=== PATIENT | male | born 1955 | race Caucasian/White ===

== ENCOUNTER 2017-01-01 14:39 | Emergency (ER) | payer OTHER ==
[~2017-01-01] VITALS: Ht 167.6 cm; Wt 84.1 kg
[~2017-01-01 14:39] MED LIST: ALLO100T57 PO; FNTTP25 EXT; INDO-22 PO; LISI-794 PO; TIZA4CAP PO
[2017-01-01 14:53] VITALS: TEMP 36.8; Ht 167.6 cm; Wt 84.1 kg
[2017-01-01] MEDS ORDERED: OXYC1TAB3 PO (15:23)
--- NOTE | 2017-01-01 15:25 | EMERGENCY ROOM VISIT NOTE ---
ED Visit Note First contact with patient: 15:00 CHIEF COMPLAINT: Low back pain HISTORY OF PRESENT ILLNESS: This 61-year-old male patient presents to the emergency department ambulatory complaining of pain in the low back which has been chronic since the late . The patient states that he was seeing [facility] pain management until May when he states he went to the office at [place] and formerly [facility] [place] and they let him go from the practice. He states that since then he has had elbow and shoulder surgery and has seen [facility]. He states he has been getting narcotics from [facility]. He states that today he was due to have a nerve block done on L5 but he had taken Indocin a few days ago because of worsening pain and they stated he could not get the block done. It will be rescheduled. The patient presents to the emergency department solely for pain management. He denies any change in his symptoms, new falls or injuries. He denies any loss of bowel or bladder control. He reports numbness in both of his legs but states that has been ongoing for the last 3 years. REVIEW OF SYSTEMS: No dysuria or increased urinary frequency. A 6 system review of systems was completed and pertinent positives and negatives are in the HPI. ALLERGIES: Aspirin, methadone MEDICATIONS: See nursing notes PMH: Hypertension, gout, chronic back pain SOCIAL HISTORY: The patient lives locally. He does not smoke PHYSICAL EXAM: VITALS: Vitals are noted on the nurse's note and reviewed by myself. No abnormalities noted. GENERAL: This is a 61-year-old male, in no acute distress, nondiaphoretic, well- developed well-nourished. SKIN: The skin was without rashes, erythema, edema, or bruising. Capillary refill less than 2 seconds. NECK: Supple without nuchal rigidity. No cervical spine tenderness. No paraspinous muscle tenderness. HEART: Regular rate and rhythm without murmurs gallops or rubs. LUNGS: Clear to auscultation bilaterally without wheezes, rales or rhonchi. ABDOMEN: Positive bowel sounds x 4. Normal tympanic percussion. Soft, nontender, without masses or organomegaly. Valdovinos sign negative. MUSCULOSKELETAL: No muscle atrophy, erythema, or edema noted of the back. There is no tenderness over the lumbar spinous processes. There is no tenderness over the paraspinous muscles. There is no tenderness over the thoracic spine or paraspinous muscles. There are no obvious muscle spasms present. The patient is slow to move around with maximum tenderness with extension. Negative straight leg raise test. NEURO: Patient was alert and oriented to person place and time. Normal sensation to light and sharp touch. Deep tendon reflexes 2+ in the lower extremities. Dorsalis pedis pulse 2+ bilaterally. Strength is 5/5 in the lower extremities bilaterally. EMERGENCY DEPARTMENT COURSE: The patient was seen and examined. The patient does not frequent the emergency department. I did review the prescription drug monitoring website. The patient has been filling tramadol which he admits to receiving. He states that he had been on oxycodone which had been helping him. He states he was let go from [facility] pain management. The patient does not have any new or change in symptoms. He does not have any neurologic deficit on exam or by history. After discussion with Dr. Cyr we decided to give the patient a 3 day prescription. I advised the patient that I will give him a 3 day supply of pain medication but he must follow-up with orthopedics and/or pain management for further evaluation, management and pain medication. I was able to speak with Asael Tovar who stated that the patient does not receive narcotics from [facility] anymore. I feel this patient does display drug-seeking behavior. He was given a one- time prescription for his chronic back pain. Problem List Medical Problems: (1) CAD (coronary artery disease) Status: Chronic (2) Hypertension Status: Chronic Current/Historical Medications Scheduled Fentanyl (Fentanyl), 1 DOSE EXT Q3DAYS Lisinopril (Zestril), 40 MG PO QAM Scheduled PRN Allopurinol (Zyloprim), 0.5 TAB PO DAILY PRN for GOUT Indomethacin (Indocin), 25 MG PO BID PRN for Pain Oxycodone Ir (Roxicodone Ir), 1-2 TAB PO Q6H PRN for Pain Tizanidine (Zanaflex), 2 TAB PO HS PRN for Pain Allergies Coded Allergies: Aspirin (Verified Adverse Reaction, Severe, GI SYMPTOMS, 01/01/17) BLOOD IN STOOL (REGULAR STRENGTH ASPIRIN) Methadone (Verified Adverse Reaction, Severe, VOMITING, 01/01/17) Vital Signs Date Time Temp Pulse Resp B/P Pulse Ox O2 Delivery O2 Flow Rate FiO2 01/01/17 15:48 100 18 170/129 95 01/01/17 14:53 36.8 91 18 190/110 96 Room Air Departure Information Impression Primary Impression: Chronic back pain Dispostion Home / Self-Care Condition GOOD Prescriptions Oxycodone Ir (Roxicodone Ir) 5 Mg Tab 1-2 TAB PO Q6H Y for Pain, #24 TAB For Initial Treatment Prov: Jennifer Gtz PA-C 01/01/17 Referrals No Doctor, Assigned (PCP) Emigdio Pierre M.D. Patient Instructions My [facility] Additional Instructions Oxy IR 1-2 tablets every 4-6 hrs as needed for worse pain. No driving or alcohol use with Oxy IR. You have been given a three-day supply of oxycodone from the emergency department. Emergency department does not manage chronic pain and you must follow-up with orthopedics or pain management for additional medication.
[2017-01-01 15:48] VITALS: BP 170/129; PULSE 100; O2SAT 95
[2017-01-14] MEDS ORDERED: TRAM-453 PO (08:36)
[2017-04-15] MEDS ORDERED: AMLO-114 PO (11:07)
[2017-05-08] MEDS ORDERED: LISI40TA PO (11:09)
[2017-05-08] MEDS ORDERED: CLON0.1D5 TD (11:09)
== END 2017-01-01 15:49 | disposition home or self-care (01) ==
LOC: C.EDB 14:42 → C.EDD 15:49
DX: M54.5 Low back pain (principal); G89.29 Other chronic pain; I10 Essential (primary) hypertension; I25.10 Atherosclerotic heart disease of native coronary artery without angina pectoris; M10.9 Gout, unspecified; Z79.899 Other long term (current) drug therapy; Z88.5 Allergy status to narcotic agent; Z88.6 Allergy status to analgesic agent

== ENCOUNTER → 2017-01-15 | Day surgery (SDC) | payer OTHER ==
[2016-12-09 08:37] VITALS: BMI 29.0
[2016-12-22 08:34] VITALS: BMI 29.0
[2017-01-14 08:37] VITALS: Ht 167.6 cm; Wt 84.1 kg
[~2017-01-15] VITALS: Ht 167.6 cm; Wt 84.1 kg
[~2017-01-15] MED LIST changes: +AMLO-114 PO; +APR25 PO; +CHECK CLONIDINE; +CLON0.1D5 TD; +CPR500 PO; +CRDCD240 PO; -FNTTP25 EXT; +LIDOCAINE HCL 1% MPF 5 ML VIAL INJ ONE; +LISI40TA PO; +METHYLPREDNISOLONE 40 MG INJ ONE; +METR500T PO; +NAPR500T3 PO; +NRV5 PO; +OXYC1TAB3 PO; +SENN-65 PO; +SODIUM CHLORIDE 0.9% INJ 10 ML VIAL INJ ONE; +TPRSR50 PO; +TRAM-453 PO; +[UNRECOGNIZED DRUG - OTHER] INJ ONE
--- NOTE | 2017-01-15 14:23 | History & Physical Bridge - SC ---
H&P Re-Evaluation Bridge Note: I have examined the patient, reviewed the History & Physical and in the interval since the performance of the History & Physical I have noted the following changes of clinical significance: No changes noted
--- NOTE | 2017-01-15 14:48 | Discharge Instructions ---
Discharge Instructions Visit Reason for Visit: Lumbar Radiculopathy Discharge Discharge Diagnosis / Problem: leg pain Discharge Goals Goal(s): Decrease discomfort, Improve function Activity Recommendations Activity Limitations: resume your previous activity Anesthesia . Post Anesthesia Instructions: If you have had General Anesthesia or IV Sedation: * Do not drive today. * Resume driving when surgeon permits. * Do not make important decisions or sign legal documents today. * Call surgeon for: 1. Temperature elevations greater than 101 degrees F. 2. Uncontrollable pain. 3. Excessive bleeding. 4. Persistent nausea and vomiting. 5. Medication intolerance (nausea, vomiting or rash). * For nausea and vomiting use only clear liquids such as: tea, soda, bouillon until nausea subsides, then gradually increase diet as tolerated. * If you have any concerns or questions, call your surgeon's office. If physician is unavailable and it is an emergency, call 911 or go to the nearest emergency room. . Diet Recommendations Recommended Home Diet: resume previous diet Procedures Procedures Performed: Lumbar Epidural Steroid Injection Pending Studies Studies pending at discharge: no Medical Emergencies . Who to Call and When: Medical Emergencies: If at any time you feel your situation is an emergency, please call 911 immediately. . Non-Emergent Contact Non-Emergency issues call your: Specialist . . "Provider Documentation" section prepared by Emigdio Pierre.
[2017-01-15 14:52] VITALS: TEMP 36.9
[2017-01-15 14:57] VITALS: BP 190/97; PULSE 78; O2SAT 99
--- NOTE | 2017-01-15 15:09 | OPERATIVE REPORT ---
DATE OF OPERATION: 01/15/2017 PREOPERATIVE DIAGNOSIS: Lumbar spinal stenosis secondary to epidural lipomatosis with bilateral lower extremity radiculopathies. POSTOPERATIVE DIAGNOSES: Same. PROCEDURE: Right L5-S1 paramedian interlaminar epidural steroid injection under fluoroscopic guidance. INDICATIONS: The patient is a 61-year-old white male who has difficulty ambulating. He has lumbar stenosis problems related to lumbar lipomatosis and he has not responded to conservative measures. He presents today for an epidural injection to provide him with relief of his radicular pain. PHYSICAL EXAMINATION: Pleasant male seated comfortably. He has mild tenderness to palpation of the lumbar paraspinal muscles. He has normal lower extremity strength and decreased sensation distally in a stocking distribution. CONSENT: Verbal and written consent was obtained from the patient. Risks and benefits were reviewed. Risks include but are not limited to epidural hematoma, epidural abscess, and allergic reaction. The patient wishes to proceed. DESCRIPTION OF PROCEDURE: The patient was taken back to the special procedures room of the [facility] where he was maintained in a prone position. Backside was cleansed with Betadine x3 and a dry sterile dressing was applied. Fluoroscope was used to identify the L5-S1 interlaminar space and the overlying skin was anesthetized with 4 mL of lidocaine 1% with a 25 gauge 1.5-inch needle. A 22-gauge 3-1/2 inch Tuohy needle was then directed into the interlaminar space. It was advanced under lateral fluoroscopic guidance. Loss of resistance was noted at a depth of 6.5 cm. Isovue-300 contrast 1 mL was injected in which demonstrated epidural uptake pattern which was confirmed with both AP and lateral views. He then underwent injection after negative aspiration of 40 mg Depo-Medrol and 4 mL of preservative-free sodium chloride. Injection was well tolerated. DISPOSITION: 1. The patient is taken out into the discharge recovery area where he will be discharged home once discharge criteria have been met. 2. Follow up in the [facility] office in 2-4 weeks. I attest to the content of the Intraoperative Record and any orders documented therein. Any exceptio ns are noted below.
== END | disposition home or self-care (01) ==
LOC: X.SURG 11:37
PROVIDERS: ATTEND Physical Medicine & Rehabilitation
DX: M48.06 Spinal stenosis, lumbar region (principal); M54.16 Radiculopathy, lumbar region; D17.79 Benign lipomatous neoplasm of other sites

== ENCOUNTER → 2017-02-02 | Outpatient (CLI) | payer OTHER ==
[~2017-02-02] MED LIST changes: -LIDOCAINE HCL 1% MPF 5 ML VIAL INJ ONE; -METHYLPREDNISOLONE 40 MG INJ ONE; -SODIUM CHLORIDE 0.9% INJ 10 ML VIAL INJ ONE; -[UNRECOGNIZED DRUG - OTHER] INJ ONE
== END | disposition home or self-care (01) ==
LOC: C.RDSM 13:00
PROVIDERS: ATTEND Physical Medicine & Rehabilitation Sports Medicine
DX: M75.41 Impingement syndrome of right shoulder (principal); M25.571 Pain in right ankle and joints of right foot

== ENCOUNTER 2017-02-24 19:31 | Inpatient (IN) | payer OTHER ==
[~2017-02-24] VITALS: Ht 167.6 cm; Wt 85.3 kg
[~2017-02-24 19:31] MED LIST changes: -AMLO-114 PO; -APR25 PO; -CHECK CLONIDINE; -CLON0.1D5 TD; -CPR500 PO; -CRDCD240 PO; -LISI40TA PO; -METR500T PO; -NAPR500T3 PO; -NRV5 PO; -OXYC1TAB3 PO; -SENN-65 PO; -TPRSR50 PO
[2017-02-24] MEDS ORDERED: NAPR500T3 PO (19:55)
[2017-02-24] MEDS ORDERED: SODIUM CHLORIDE 0.9% 1000ML 1,000 ML IV STA (20:58)
[2017-02-24] MEDS ORDERED: SODIUM CHLORIDE 0.9% 250ML 250 ML IV STA (20:58)
--- NOTE | 2017-02-24 21:08 | EMERGENCY ROOM VISIT NOTE ---
History Report prepared by Kendrick: Lorna Coleman Under the Supervision of: Dr. Razia Romeo M.D. First contact with patient: 19:45 Chief Complaint: GI ASSESSMENT Stated Complaint: SERIOUSLY BLOCKED COLON,3 DAYS NO BM,NO FOOD,PAIN History of Present Illness The patient is a 61 year old male who presents to the Emergency Room for a GI assessment. Three days ago the patient walked his dog over to his neighbor's house. They were drinking beer and he estimates that he ate about 85 saltine crackers that evening. The next morning he woke up with severe lower abdominal pain. He has not been eating much and he has been constipated. His last bowel movement was 2 days ago. The patient rates his current pain as a 10/10 in severity. He has taken 34 Ex-lax tablets and 17 doses of MiraLAX without any relief. He also gave himself a homemade enema of contact lens fluid, which he states helped slightly. He denies any personal history of a bowel obstruction. He has been taking naproxen and Percocet for pain. The patient also reports fevers. Source of History: patient Onset: 3 days ago Position: abdomen Symptom Intensity: 10/10 Timing: worsening Modifying Factors (Relieving): narcotics, other (enema) Associated Symptoms: + fevers Note: Pt notes constipation. Review of Systems See HPI for pertinent positives & negatives. A total of 10 systems reviewed and were otherwise negative. Past Medical & Surgical Medical Problems: (1) Acute kidney injury (2) CAD (coronary artery disease) (3) Colonic inertia (4) Hypertension (5) Hyponatremia Family History Patient reports no known family medical history. Social History Smoking Status: Never Smoker Alcohol Use: occasionally Marital Status: single Current/Historical Medications Scheduled Lisinopril (Zestril), 40 MG PO QAM Naproxen (Naproxen), 500 MG PO DIRECTED Scheduled PRN Allopurinol (Zyloprim), 0.5 TAB PO DAILY PRN for GOUT Indomethacin (Indocin), 25 MG PO BID PRN for Pain Tizanidine (Zanaflex), 2 TAB PO HS PRN for Pain Tramadol Hcl (Ultram), 100 TABS PO TID PRN for Pain Allergies Coded Allergies: Aspirin (Verified Adverse Reaction, Severe, GI SYMPTOMS, 02/24/17) BLOOD IN STOOL (REGULAR STRENGTH ASPIRIN) Methadone (Verified Adverse Reaction, Severe, VOMITING, 02/24/17) Physical Exam Vital Signs Date Time Temp Pulse Resp B/P Pulse Ox O2 Delivery O2 Flow Rate FiO2 02/24/17 23:47 101 18 169/85 95 Room Air 02/24/17 21:28 99 20 152/82 94 Room Air 02/24/17 21:23 100 02/24/17 19:35 37.7 103 20 113/65 94 Room Air Physical Exam Vital signs reviewed. General: Well-appearing 61 year old male, in no significant distress. HEENT: No scleral icterus, PERRLA, neck supple. Atraumatic. Cardiovascular: Regular rate and rhythm, no extra sounds. Pulmonary: Clear to auscultation bilaterally, normal work of breathing. Abdomen: Soft, distended, positive tympani, positive bowel sounds. Musculoskeletal: Atraumatic, no peripheral edema. Neurologic: Patient awake alert and oriented x 3, full strength in all 4 extremities. Cranial nerves 2 through 12 grossly intact. Skin: Warm, dry, no rash Medical Decision & Procedures ER Provider Diagnostic Interpretation: Radiology results as stated below per my review and radiologist interpretation: ABDOMEN 2VIEW W/PA CHEST RTN CLINICAL HISTORY: SBO pain COMPARISON STUDY: 02/06/2016 FINDINGS: Mild bibasilar atelectasis. Lungs otherwise are clear. Diaphragms smooth. Several air-filled slightly distended loops of small bowel in the left central abdomen. Possibility of a partial distal small bowel obstruction is considered. No secondary signs of free air. IMPRESSION: 1. Mild bibasilar atelectasis. 2. Probable developing distal small bowel partial obstructive change Electronically signed by: Devante Chavez M.D. 02/24/2017 10:10 PM Dictated Date/Time: 02/24/2017 10:08 PM ABDOMEN AND PELVIS CT WITHOUT CONTRAST CT DOSE: 522.65 mGy.cm HISTORY: Pain SBO TECHNIQUE: Multiaxial CT images of the abdomen and pelvis were performed without contrast. COMPARISON STUDY: None. FINDINGS: Small parenchymal infiltrate right base. Trace pleural fluid right posterior costophrenic angle. Left base shows minimal dependent atelectatic change. Kidneys are negative for calcification or hydronephrosis. Liver demonstrates mild fatty infiltration. Gallbladder is negative for distention. Pancreas is uniform. Small bowel is negative for significant dilatation. Distal small bowel is slightly distended. Cecum , ascending, as well as components of the transverse colon are moderately distended. A true obstructing lesion is not seen. Distal colon as well as sigmoid show no evidence for distention. No significant free fluid within the pelvic cul-de-sac. Bladder is midline. There are no contained calcifications. IMPRESSION: Moderate distention of the proximal cecum to mid transverse colon. This may simply represent a nonobstructive colonic ileus, although colonoscopy is suggested to exclude an occult partially obstructing lesion. The bowel pattern as well as all remaining components of the study are otherwise unremarkable. note is made of a parenchymal infiltrate combined with a small effusion right lung base. Electronically signed by: Devante Chavez M.D. 02/24/2017 10:40 PM Dictated Date/Time: 02/24/2017 10:34 PM Laboratory Results Test 02/24/17 21:20 02/24/17 21:38 02/24/17 21:45 Dohle Bodies 1+ Prothrombin Time 9.9 SECONDS (9.0-12.0) Prothromb Time International Ratio 0.9 (0.9-1.1) Activated Partial Thromboplast Time 29.2 SECONDS (21.0-31.0) Partial Thromboplastin Ratio 1.1 Osmolality 270 mOsm/kg (280-300) Total Bilirubin 0.7 mg/dl (0.2-1) Direct Bilirubin 0.1 mg/dl (0-0.2) Aspartate Amino Transf (AST/SGOT) 37 U/L (15-37) Alanine Aminotransferase (ALT/SGPT) 40 U/L (12-78) Alkaline Phosphatase 149 U/L (45-117) Total Protein 7.5 gm/dl (6.4-8.2) Albumin 3.6 gm/dl (3.4-5.0) Lipase 63 U/L (73-393) Ethyl Alcohol mg/dL < 3.0 mg/dl (0-3) Urine Color YELLOW Urine Appearance CLOUDY (CLEAR) Urine pH 5.0 (4.5-7.5) Urine Specific [place] 1.008 (1.000-1.030) Urine Protein 1+ (NEG) Urine Glucose (UA) NEG (NEG) Urine Ketones NEG (NEG) Urine Occult Blood 2+ (NEG) Urine Nitrite NEG (NEG) Urine Bilirubin NEG (NEG) Urine Urobilinogen NEG (NEG) Urine Leukocyte Esterase NEG (NEG) Urine RBC 0-4 /hpf (0-4) Urine WBC 1-5 /hpf (0-5) Urine Epithelial Cells 0-5 /lpf (0-5) Urine Bacteria 2+ (NEG) Urine Hyaline Casts 1-5 /lpf (0-5) Urine Granular Casts 5-10 /lpf (0) Urine Opiates Screen NEG (NEG) Urine Methadone, Qualitative NEG (NEG) Urine Barbiturates NEG (NEG) Urine Phencyclidine (PCP) Level NEG (NEG) Ur Amphetamine/Methamphetamine NEG (NEG) MDMA (Ecstasy) Screen NEG (NEG) Urine Benzodiazepines Screen NEG (NEG) Urine Cocaine Metabolite NEG (NEG) Urine Marijuana (THC) NEG (NEG) Date/Time Source Procedure Growth Status 02/24/17 21:45 Urine , Clean Catch Urine Culture - Final NO GROWTH - LESS THAN 1,000 COLONIES/ML Complete Laboratory results per my review. Medications Administered Medications (Trade) Dose Ordered Sig/Romana Route Start Time Stop Time Status Last Admin Dose Admin Morphine Sulfate (MoRPHine SULFATE INJ) 4 mg NOW STAT IV 02/24/17 23:37 02/24/17 23:40 DC 02/25/17 01:36 4 MG Ceftriaxone Sodium (Rocephin Inj) 1 gm NOW STAT IV 02/24/17 23:37 02/24/17 23:40 DC 02/25/17 00:47 1 GM ED Course 1951: Past medical records reviewed. The patient was evaluated in room B11B. A complete history and physical examination was performed. 2057: NSS 1000 ml @ 125 mls/hr IV, NSS 250 ml @ 999 mls/hr IV 2310: I reassessed the patient at this time. He is feeling better and resting comfortably. I discussed the results and treatment plan with the patient. I answered all pertaining questions that he had. He expressed understanding and verbalized agreement. 2335: I spoke with Dr. Lynch. We discussed the patient's results and treatment plan. The patient will be evaluated by the [facility] for further management. 2337: Rocephin 1 gm IV, Morphine sulfate 4 mg IV Medical Decision Differential diagnoses includes SBO, appendicitis, intraabdominal abscess, diverticulitis, constipation, perforated viscus. This patient was evaluated and appeared to be in no significant distress. IV access was obtained and laboratory work was drawn. The patient's abdominal exam is impressive for a tympany and generalized tenderness. He was hydrated with normal saline solution. Patient was given IV morphine and Zofran after he made repeated requests. The patient's history is concerning for the excessive laxatives that he's been taking lately. Abdominal x-ray series reveals air- fluid levels. The patient is not vomiting. CT scan of the abdomen and pelvis was performed colonic distention without clear evidence of obstruction. Patient 's laboratory work reveals a creatinine of 3.3. It is unclear if this is brand- new however the patient's creatinine was 1.3, 1 year ago. The patient was informed of the findings. He was feeling somewhat improved after the above interventions. He did request on multiple occasions additional narcotics. I feel that the narcotics and NSAIDs or likely contribute to the patient's ileus and renal failure. The case has been discussed with Dr. Graf of the hospitalist service and he will evaluate the patient for further management. Consults Time Called: 2327 Consulting Physician: Dr. Lynch Returned Call: [phone] Lynch. We discussed the patient's results and treatment plan. The patient will be evaluated by the [facility] for further management. Impression Primary Impression: Acute renal failure Additional Impressions: Pneumonia Pleural effusion Adynamic ileus Scribe Attestation The scribe's documentation has been prepared under my direction and personally reviewed by me in its entirety. I confirm that the note above accurately reflects all work, treatment, procedures, and medical decision making performed by me. Departure Information Dispostion Being Evaluated By Hospitalist Referrals No Doctor, Assigned (PCP) Patient Instructions My [facility] Problem Qualifiers Primary Impression: Acute renal failure Acute renal failure type: unspecified Qualified Codes: N17.9 - Acute kidney failure, unspecified Additional Impressions: Pneumonia Pneumonia type: due to unspecified organism Laterality: right Lung location : lower lobe of lung Qualified Codes: J18.1 - Lobar pneumonia, unspecified organism
[2017-02-24 21:34] LABS: HEMATOCRIT 33.4 % (42-52); MEAN CELL VOLUME 83.7 fL (80-100); MEAN CORPUSCULAR HEMOGLOBIN 31.1 pg (25-34); MEAN CORPUSCULAR HGB CONC 37.1 g/dl (32-36); MEAN PLATELET VOLUME 10.1 fL (7.4-10.4); PLATELET COUNT 164 K/uL (130-400); RED BLOOD COUNT 3.99 M/uL (4.7-6.1); WHITE BLOOD COUNT 7.67 K/uL (4.8-10.8)
[2017-02-24 21:44] LABS: INR 0.9 (0.9-1.1); PARTIAL THROMBOPLASTIN RATIO 1.1; PROTHROMBIN TIME (PATIENT) 9.9 SECONDS (9.0-12.0)
[2017-02-24] MEDS ORDERED: OPTIRAY 320 IV PRN (21:45)
[2017-02-24 21:56] LABS: BASO % 0.1 %; BASO ABS # 0.01 K/uL (0-0.2); COMPLETE YES; DOHLE BODIES 1+; EOS % 0.4 %; IG% 0.4 %; LYMPH % 8.1 %; LYMPH ABS # 0.62 K/uL (1.2-3.4); MONO % 4.3 %; NEUT % 86.7 %
[2017-02-24 21:57] LABS: CALCIUM 9.1 mg/dl (8.5-10.1); CREATININE 3.3 mg/dl (0.60-1.40); MAGNESIUM 2.5 mg/dl (1.8-2.4); POTASSIUM 3.4 mmol/L (3.5-5.1)
[2017-02-24 22:05] LABS: URINE APPEARANCE CLOUDY (CLEAR); URINE BILIRUBIN NEG (NEG); URINE COLOR YELLOW; URINE NITRITE NEG (NEG); URINE SPECIFIC GRAVITY 1.008 (1.000-1.030); UROBILINOGEN NEG (NEG)
[2017-02-24 22:06] LABS: MANUAL MICROSCOPIC REQUIRED? YES; REVIEW REQ? NO
--- NOTE | 2017-02-24 22:11 | DIAGNOSTIC IMAGING REPORT ---
ABDOMEN 2VIEW W/PA CHEST RTN CLINICAL HISTORY: SBO pain COMPARISON STUDY: 02/06/2016 FINDINGS: Mild bibasilar atelectasis. Lungs otherwise are clear. Diaphragms smooth. Several air-filled slightly distended loops of small bowel in the left central abdomen. Possibility of a partial distal small bowel obstruction is considered. No secondary signs of free air. IMPRESSION: 1. Mild bibasilar atelectasis. 2. Probable developing distal small bowel partial obstructive change Electronically signed by: Devante Chavez M.D. 02/24/2017 10:10 PM Dictated Date/Time: 02/24/2017 10:08 PM
[2017-02-24 22:17] LABS: URINE BACTERIA 2+ (NEG); URINE RBC 0-4 /hpf (0-4)
[2017-02-24 22:18] LABS: ZZUR CULT IF INDIC CLEAN CATCH YES
[2017-02-24 22:27] LABS: BENZODIAZEPINE, URINE NEG (NEG); COCAINE,URINE NEG (NEG); PHENCYCLIDINE, URINE NEG (NEG)
--- NOTE | 2017-02-24 22:41 | DIAGNOSTIC IMAGING REPORT ---
ABDOMEN AND PELVIS CT WITHOUT CONTRAST CT DOSE: 522.65 mGy.cm HISTORY: Pain SBO TECHNIQUE: Multiaxial CT images of the abdomen and pelvis were performed without contrast. COMPARISON STUDY: None. FINDINGS: Small parenchymal infiltrate right base. Trace pleural fluid right posterior costophrenic angle. Left base shows minimal dependent atelectatic change. Kidneys are negative for calcification or hydronephrosis. Liver demonstrates mild fatty infiltration. Gallbladder is negative for distention. Pancreas is uniform. Small bowel is negative for significant dilatation. Distal small bowel is slightly distended. Cecum , ascending, as well as components of the transverse colon are moderately distended. A true obstructing lesion is not seen. Distal colon as well as sigmoid show no evidence for distention. No significant free fluid within the pelvic cul-de-sac. Bladder is midline. There are no contained calcifications. IMPRESSION: Moderate distention of the proximal cecum to mid transverse colon. This may simply represent a nonobstructive colonic ileus, although colonoscopy is suggested to exclude an occult partially obstructing lesion. The bowel pattern as well as all remaining components of the study are otherwise unremarkable. note is made of a parenchymal infiltrate combined with a small effusion right lung base. Electronically signed by: Devante Chavez M.D. 02/24/2017 10:40 PM Dictated Date/Time: 02/24/2017 10:34 PM
[2017-02-24] MEDS: MoRPHine SULFATE 4 MG/ML 1 ML CARP\\VIAL IV STA (23:37)
[2017-02-24] MEDS ORDERED: CEFTRIAXONE SOD INJ 1 GM ADDVIAL IV STA (23:37)
[2017-02-25] VITALS (10 sets, daily range): BP systolic 163–211; BP diastolic 84–119; PULSE 90–120; TEMP 36.6–36.9; O2SAT 93–97; Ht 167.6 cm; Wt 85.3 kg
[2017-02-25] MEDS ORDERED: BISACODYL 10 MG SUPP PR STA (00:42)
[2017-02-25] MEDS ORDERED: ONDANSETRON INJ 2 MG/ML 2 ML VIAL IV PRN (00:45)
[2017-02-25] MEDS ORDERED: ACETAMINOPHEN 325 MG TAB PO PRN (00:45)
[2017-02-25] MEDS ORDERED: ZOLPIDEM TARTRATE 5 MG TAB PO PRN (00:45)
[2017-02-25] MEDS ORDERED: TRAMADOL HCL 50 MG TAB PO PRN (00:45)
[2017-02-25] MEDS ORDERED: MoRPHine SULFATE 4 MG/ML 1 ML CARP\\VIAL IV PRN (00:45)
[2017-02-25] MEDS ORDERED: SOD PHOSPHATE/SOD BIPHOSPHATE ENEMA 132 ML BTL PR PRN (00:45)
[2017-02-25] MEDS ORDERED: DiphenhydrAMINE HCL 50 MG/ML VIAL IV PRN (00:45)
[2017-02-25] MEDS ORDERED: MoRPHine SULFATE 2 MG/ML CARP IV PRN (00:45)
[2017-02-25] MEDS ORDERED: LEVALBUTEROL 1.25MG/0.5ML NEB INH PRN (01:15)
[2017-02-25] MEDS ORDERED: IPRATROPIUM BROMIDE NEB SOLN 0.02% 2.5 ML VIAL INH PRN (01:15)
[2017-02-25] MEDS: MoRPHine SULFATE 4 MG/ML 1 ML CARP\\VIAL IV STA (01:36)
[2017-02-25] MEDS: SODIUM CHLORIDE 0.9% 1000ML 1,000 ML IV SCH ×2 (02:00→11:17)
[2017-02-25] MEDS: LEVALBUTEROL 1.25MG/0.5ML NEB INH SCH ×4 (02:36→20:53)
[2017-02-25] MEDS: IPRATROPIUM BROMIDE NEB SOLN 0.02% 2.5 ML VIAL INH SCH ×4 (02:36→20:53)
[2017-02-25] MEDS ORDERED: LEVALBUTEROL/IPRATROPIUM NEB INH SCH (03:00)
[2017-02-25] MEDS: OXYCODONE HCL IR 5 MG TAB (IMMEDIATE RELEASE) PO PRN ×4 (03:10→20:23)
--- NOTE | 2017-02-25 05:22 | History and Physical ---
History & Physical Date & Time of Service: Feb 25, 2017 at 05:07. The patient was examined on 02/24/2017. Chief Complaint: Acute Renal Failure, Colonic Inertia Primary Care Physician: No Doctor, Assigned History of Present Illness Source: patient The patient is a 61-year-old male who presents to the emergency department with complaint of severe lower abdominal/suprapubic pain that he reports began in the morning after eating 85 saltine crackers and drank beer the previous evening 3 days ago. His last bowel movement was 2 days ago. He reports having taken 34 Ex-Lax tablets 17 doses of MiraLAX without any relief. He was also taking significant amounts of naproxen and ibuprofen, and also took left over Percocet from a previous shoulder injury with the pain. He also gave himself a homemade enema of contact lens fluid. He also reports that he had a fever, but did not take his temperature. Past Medical/Surgical History Medical Problems: (1) CAD (coronary artery disease) Status: Chronic (2) Hypertension Status: Chronic Family History Patient reports no known family medical history. Social History Smoking Status: Never Smoker Smokeless Tobacco Use: No Alcohol Use: socially Drug Use: none Marital Status: single Multi-Drug Resistant Organisms History of MDRO: No Allergies Coded Allergies: Aspirin (Verified Adverse Reaction, Severe, GI SYMPTOMS, 02/24/17) BLOOD IN STOOL (REGULAR STRENGTH ASPIRIN) Methadone (Verified Adverse Reaction, Severe, VOMITING, 02/24/17) Home Medications Scheduled Lisinopril (Zestril), 40 MG PO QAM Naproxen (Naproxen), 500 MG PO DIRECTED Scheduled PRN Allopurinol (Zyloprim), 0.5 TAB PO DAILY PRN for GOUT Indomethacin (Indocin), 25 MG PO BID PRN for Pain Tizanidine (Zanaflex), 2 TAB PO HS PRN for Pain Tramadol Hcl (Ultram), 100 TABS PO TID PRN for Pain Review of Systems The patient denies chest pain, palpitations, shortness of breath, cough, lower extremity swelling, vision change, hearing change, sore throat, chills, sweats , weight change, blood in urine or stool, dysuria, urinary frequency or urgency , lightheadedness, dizziness, headache, memory loss, rash, abnormal bruising or bleeding, imbalance, focal or generalized weakness, numbness or tingling in arms or legs, night sweats, or allergy symptoms. The review of systems is otherwise negative other than for that already noted above, and at least 10 systems have been reviewed. Physical Exam Vital Signs Date Time Temp Pulse Resp B/P Pulse Ox O2 Delivery O2 Flow Rate FiO2 02/25/17 04:00 Room Air 02/25/17 03:36 36.7 107 19 179/95 97 Room Air 02/25/17 02:00 36.7 100 18 178/84 94 Room Air 02/25/17 01:30 103 18 156/88 95 02/24/17 23:47 101 18 169/85 95 Room Air 02/24/17 21:28 99 20 152/82 94 Room Air 02/24/17 21:23 100 02/24/17 19:35 37.7 103 20 113/65 94 Room Air The patient is awake, well-developed and adequately nourished, alert and oriented 3, normocephalic and atraumatic, lying in bed and in no acute distress. HEENT--PERRL, EOMI, mucous membranes and oropharynx dry. Neck--supple, no JVD or bruits, thyroid normal, trachea midline, no adenopathy. Heart--normal S1 and S2, no extra beats, no murmurs, rubs or gallops. Lungs--clear bilaterally, no respiratory distress, no accessory muscle use. Abdomen--normal bowel sounds and soft, tender right lateral abdomen, nondistended, and obese. Extremities--no cyanosis, clubbing or edema. There are good distal pulses b/l. Dermatologic--normal skin turgor, normal color, warm and dry, no abnormal lymph nodes, no rash. Neurologic--cranial nerves II through XII grossly intact, motor and sensory examination normal. Rheumatologic--normal range of motion, nontender, muscles and joints. Psychiatric--normal affect. Diagnostics Laboratory Results Results Past 24 Hours Test 02/24/17 21:20 02/24/17 21:38 02/24/17 21:45 Range/Units White Blood Count 7.67 4.8-10.8 K/uL Red Blood Count 3.99 4.7-6.1 M/uL Hemoglobin 12.4 14.0-18.0 g/dL Hematocrit 33.4 42-52 % Mean Corpuscular Volume 83.7 80-100 fL Mean Corpuscular Hemoglobin 31.1 25-34 pg Mean Corpuscular Hemoglobin Concent 37.1 32-36 g/dl Platelet Count 164 130-400 K/uL Mean Platelet Volume 10.1 7.4-10.4 fL Neutrophils (%) (Auto) 86.7 % Lymphocytes (%) (Auto) 8.1 % Monocytes (%) (Auto) 4.3 % Eosinophils (%) (Auto) 0.4 % Basophils (%) (Auto) 0.1 % Neutrophils # (Auto) 6.65 1.4-6.5 K/uL Lymphocytes # (Auto) 0.62 1.2-3.4 K/uL Monocytes # (Auto) 0.33 0.11-0.59 K/uL Eosinophils # (Auto) 0.03 0-0.5 K/uL Basophils # (Auto) 0.01 0-0.2 K/uL RDW Standard Deviation 40.1 36.4-46.3 fL RDW Coefficient of Variation 13.2 11.5-14.5 % Immature Granulocyte % (Auto) 0.4 % Immature Granulocyte # (Auto) 0.03 0.00-0.02 K/uL Dohle Bodies 1+ Prothrombin Time 9.9 9.0-12.0 SECONDS Prothromb Time International Ratio 0.9 0.9-1.1 Activated Partial Thromboplast Time 29.2 21.0-31.0 SECONDS Partial Thromboplastin Ratio 1.1 Sodium Level 126 136-145 mmol/L Potassium Level 3.4 3.5-5.1 mmol/L Chloride Level 89 98-107 mmol/L Carbon Dioxide Level 24 21-32 mmol/L Anion Gap 13.0 3-11 mmol/L Blood Urea Nitrogen 30 7-18 mg/dl Creatinine 3.30 0.60-1.40 mg/dl Est Creatinine Clear Calc Drug Dose 23.9 ml/min Estimated GFR () 22.1 Estimated GFR (Non- 19.1 BUN/Creatinine Ratio 9.0 10-20 Random Glucose 124 70-99 mg/dl Osmolality 270 280-300 mOsm/kg Calcium Level 9.1 8.5-10.1 mg/dl Magnesium Level 2.5 1.8-2.4 mg/dl Total Bilirubin 0.7 0.2-1 mg/dl Direct Bilirubin 0.1 0-0.2 mg/dl Aspartate Amino Transf (AST/SGOT) 37 15-37 U/L Alanine Aminotransferase (ALT/SGPT) 40 12-78 U/L Alkaline Phosphatase 149 45-117 U/L Total Protein 7.5 6.4-8.2 gm/dl Albumin 3.6 3.4-5.0 gm/dl Lipase 63 73-393 U/L Ethyl Alcohol mg/dL < 3.0 0-3 mg/dl Urine Color YELLOW Urine Appearance CLOUDY CLEAR Urine pH 5.0 4.5-7.5 Urine Specific [place] 1.008 1.000-1.030 Urine Protein 1+ NEG Urine Glucose (UA) NEG NEG Urine Ketones NEG NEG Urine Occult Blood 2+ NEG Urine Nitrite NEG NEG Urine Bilirubin NEG NEG Urine Urobilinogen NEG NEG Urine Leukocyte Esterase NEG NEG Urine RBC 0-4 0-4 /hpf Urine WBC 1-5 0-5 /hpf Urine Epithelial Cells 0-5 0-5 /lpf Urine Bacteria 2+ NEG Urine Hyaline Casts 1-5 0-5 /lpf Urine Granular Casts 5-10 0 /lpf Urine Opiates Screen NEG NEG Urine Methadone, Qualitative NEG NEG Urine Barbiturates NEG NEG Urine Phencyclidine (PCP) Level NEG NEG Ur Amphetamine/Methamphetamine NEG NEG MDMA (Ecstasy) Screen NEG NEG Urine Benzodiazepines Screen NEG NEG Urine Cocaine Metabolite NEG NEG Urine Marijuana (THC) NEG NEG Microbiology Results 02/25/17 Blood Culture, Received Pending 02/25/17 Blood Culture, Received Pending 02/24/17 Urine Culture, Received Pending Diagnostic Radiology Patient Name: OK MOHAN III Unit Number: [id number] Dictated: 02/24/172207 Transcribed: 02/24/172207 MS Printed Date/Time: [~ rep prt dt]/[~ rep prt tm] [~ rep ct labl] - [~ rep ct ivnm] [facility] [place] [address] Dictated: 02/24/172207 Transcribed: 02/24/172207 MS Printed Date/Time: [~ rep prt dt]/[~ rep prt tm] [~ rep ct labl] - [~ rep ct ivnm] ABDOMEN 2VIEW W/PA CHEST RTN CLINICAL HISTORY: SBO pain COMPARISON STUDY: 02/06/2016 FINDINGS: Mild bibasilar atelectasis. Lungs otherwise are clear. Diaphragms smooth. Several air-filled slightly distended loops of small bowel in the left central abdomen. Possibility of a partial distal small bowel obstruction is considered. No secondary signs of free air. IMPRESSION: 1. Mild bibasilar atelectasis. 2. Probable developing distal small bowel partial obstructive change Electronically signed by: Devante Chavez M.D. 02/24/2017 10:10 PM Dictated Date/Time: 02/24/2017 10:08 PM The status of this report is Signed. Draft = Not yet reviewed or approved by Radiologist. Signed = Reviewed and approved by Radiologist. <AttendingPhy></AttendingPhy> <FamilyPhy>No Doctor, Assigned</FamilyPhy> < PrimaryPhy>No Doctor, Assigned</PrimaryPhy> <UnitNumber>[id number]</UnitNumber> <VisitNumber>[id number]</VisitNumber> <PatientName>OK MOHAN III</ PatientName> <DateOfBirth>1955</DateOfBirth> <Location>[facility]</Location> < ServiceDate>02/24/17</ServiceDate> <MNE>ESINDI</MNE> <OrderingPhy>Razia Romeo M.D.</OrderingPhy> <OrderingPhyMNE>f rep ord dr chavez</OrderingPhyMNE> < DictatingPhyMNE>f rep dict dr chavez</DictatingPhyMNE> <CCListMNE>f rep ct jacquee</ CCListMNE> <AdmittingPhyMNE>f pt admit dr chavez</AdmittingPhyMNE> <AttendingPhyMNE >f pt attend dr chavez</AttendingPhyMNE> <ConsultingPhyMNE>f pt consult dr chavez</ConsultingPhyMNE> <FamilyPhyMNE>f pt fam dr chavez</FamilyPhyMNE> <OtherPhyMNE>f pt other dr chavez</OtherPhyMNE> < PrimaryPhyMNE>f pt prim care dr chavez</PrimaryPhyMNE> <ReferringPhyMNE>f pt referring dr chavez</ReferringPhyMNE> Patient Name: OK MOHAN III Unit Number: [id number] Dictated: 02/24/172233 Transcribed: 02/24/172233 MS Printed Date/Time: [~ rep prt dt]/[~ rep prt tm] [~ rep ct labl] - [~ rep ct ivnm] [facility] [place] [address] Dictated: 02/24/172233 Transcribed: 02/24/172233 MS Printed Date/Time: [~ rep prt dt]/[~ rep prt tm] [~ rep ct labl] - [~ rep ct ivnm] [~ rep ct add3]] ABDOMEN AND PELVIS CT WITHOUT CONTRAST CT DOSE: 522.65 mGy.cm HISTORY: Pain SBO TECHNIQUE: Multiaxial CT images of the abdomen and pelvis were performed without contrast. COMPARISON STUDY: None. FINDINGS: Small parenchymal infiltrate right base. Trace pleural fluid right posterior costophrenic angle. Left base shows minimal dependent atelectatic change. Kidneys are negative for calcification or hydronephrosis. Liver demonstrates mild fatty infiltration. Gallbladder is negative for distention. Pancreas is uniform. Small bowel is negative for significant dilatation. Distal small bowel is slightly distended. Cecum , ascending, as well as components of the transverse colon are moderately distended. A true obstructing lesion is not seen. Distal colon as well as sigmoid show no evidence for distention. No significant free fluid within the pelvic cul-de-sac. Bladder is midline. There are no contained calcifications. IMPRESSION: Moderate distention of the proximal cecum to mid transverse colon. This may simply represent a nonobstructive colonic ileus, although colonoscopy is suggested to exclude an occult partially obstructing lesion. The bowel pattern as well as all remaining components of the study are otherwise unremarkable. note is made of a parenchymal infiltrate combined with a small effusion right lung base. Electronically signed by: Devante Chavez M.D. 02/24/2017 10:40 PM Dictated Date/Time: 02/24/2017 10:34 PM The status of this report is Signed. Draft = Not yet reviewed or approved by Radiologist. Signed = Reviewed and approved by Radiologist. <AttendingPhy></AttendingPhy> <FamilyPhy>No Doctor, Assigned</FamilyPhy> < PrimaryPhy>No Doctor, Assigned</PrimaryPhy> <UnitNumber>[id number]</UnitNumber> <VisitNumber>[id number]</VisitNumber> <PatientName>OK MOHAN III</ PatientName> <DateOfBirth>1955</DateOfBirth> <Location>[facility]</Location> < ServiceDate>02/24/17</ServiceDate> <MNE>ESINDI</MNE> <OrderingPhy>Razia Romeo M.D.</OrderingPhy> <OrderingPhyMNE>f rep ord dr chavez</OrderingPhyMNE> < DictatingPhyMNE>f rep dict dr chavez</DictatingPhyMNE> <CCListMNE>f rep ct scott</ CCListMNE> <AdmittingPhyMNE>f pt admit dr chavez</AdmittingPhyMNE> <AttendingPhyMNE >f pt attend dr chavez</AttendingPhyMNE> <ConsultingPhyMNE>f pt consult dr chavez</ConsultingPhyMNE> <FamilyPhyMNE>f pt fam dr chavez</FamilyPhyMNE> <OtherPhyMNE>f pt other dr chavez</OtherPhyMNE> < PrimaryPhyMNE>f pt prim care dr chavez</PrimaryPhyMNE> <ReferringPhyMNE>f pt referring dr chavez</ReferringPhyMNE> Impression Assessment and Plan Right lower lobe pneumonia and effusion--the patient will be admitted to telemetry for oxygen monitoring. We'll place on ceftriaxone 1 g IV daily, azithromycin 500 mg IV daily, and Xopenex with Atrovent nebulizer every 6 hours while awake and every 2 hours when necessary. Nonobstructive colonic ileus--he'll be placed on a full liquid diet. We'll start Dulcolax suppository tonight and daily when necessary. Fleets enema daily when necessary, and hydrate with IV fluids. Likely secondary to medications he used, including Percocet and a leftover fentanyl patch. Acute renal insufficiency--creatinine upon admission labs is 3.3, with baseline of 1.3. Hydrate as noted above, repeat BMP and magnesium levels. Hypoosmolar hyponatremia--likely secondary to combination of Ex-Lax tablets and MiraLAX that he used. Follow serial laboratories. Level of Care Med/Surg Advanced Directives Existing Advance Directive: No Existing Living Will: No Existing Power of Anchorman: No Resuscitation Status FULL RESUSCITATION VTE Prophylaxis VTE Risk Assessment Done? Y/N: Yes Risk Level: Low Given or contraindicated: SCD's Social Service Consult None Apply
[2017-02-25] MEDS: BISACODYL 10 MG SUPP PR PRN (05:58)
[2017-02-25] MEDS ORDERED: AZITHROMYCIN IV 500 MG in DEXTROSE 5% 250ML 250 ML IV SCH (06:00)
[2017-02-25] MEDS ORDERED: INDOMETHACIN 25 MG CAP PO PRN (11:00)
[2017-02-25] MEDS ORDERED: ALLOPURINOL 100 MG TAB PO PRN (11:00)
[2017-02-25] MEDS ORDERED: NURSING VERBAL MED ORDER ONE ×4 (11:15→17:45)
[2017-02-25] MEDS ORDERED: HydrALAZINE HCL 20 MG/ML VIAL IV. PRN (11:15)
[2017-02-25] MEDS: PANTOprazole INJ 40 MG in SYRINGE 0 ML IV SCH (11:17)
[2017-02-25] MEDS ORDERED: HydrALAZINE HCL 20 MG/ML VIAL ONE (11:21)
[2017-02-25] MEDS ORDERED: HydrALAZINE HCL 20 MG/ML VIAL IV. ONE (11:30)
[2017-02-25] MEDS ORDERED: LISINOPRIL 40 MG TAB PO ONE (11:45)
[2017-02-25 12:43] LABS: BASO % 0.2 %; BASO ABS # 0.01 K/uL (0-0.2); COMPLETE YES; EOS % 0.3 %; HEMATOCRIT 38.8 % (42-52); IG% 0.3 %; LYMPH % 13.2 %; LYMPH ABS # 0.77 K/uL (1.2-3.4); MEAN CELL VOLUME 85.3 fL (80-100); MEAN CORPUSCULAR HEMOGLOBIN 31.4 pg (25-34); MEAN CORPUSCULAR HGB CONC 36.9 g/dl (32-36); MEAN PLATELET VOLUME 10.1 fL (7.4-10.4); MONO % 6.5 %; NEUT % 79.5 %; PLATELET COUNT 220 K/uL (130-400); RED BLOOD COUNT 4.55 M/uL (4.7-6.1); WHITE BLOOD COUNT 5.85 K/uL (4.8-10.8)
[2017-02-25 13:14] LABS: BUN/CREATININE RATIO 9.8 (10-20); CALCIUM 9.4 mg/dl (8.5-10.1); CREATININE 3.6 mg/dl (0.60-1.40); POTASSIUM 3.4 mmol/L (3.5-5.1)
[2017-02-25] MEDS ORDERED: CLONIDINE HCL 0.2 MG/24 HR TRANSDERM SYS TD SCH (14:00)
[2017-02-25] MEDS: CHECK CLONIDINE PATCH PLACEMENT SCH ×2 (15:38→23:48)
[2017-02-25] MEDS ORDERED: METOPROLOL TARTRATE 1 MG/ML VIAL ONE ×2 (16:42→17:36)
[2017-02-25] MEDS ORDERED: METOPROLOL TARTRATE 1 MG/ML VIAL IV ONE (18:00)
[2017-02-25] MEDS ORDERED: AMLODIPINE BESYLATE 5 MG TAB PO ONE (20:45)
[2017-02-26] VITALS (7 sets, daily range): BP systolic 189–198; BP diastolic 81–111; PULSE 94–110; TEMP 36.7–37; O2SAT 93–96
[2017-02-26] MEDS ORDERED: CEFTRIAXONE SOD INJ 1 GM in DEXTROSE 5% ADD-VANTAGE 50ML 50 ML IV SCH (01:00)
[2017-02-26] MEDS: IPRATROPIUM BROMIDE NEB SOLN 0.02% 2.5 ML VIAL INH SCH ×4 (03:00→19:10)
[2017-02-26] MEDS: LEVALBUTEROL 1.25MG/0.5ML NEB INH SCH ×4 (03:00→19:10)
[2017-02-26] MEDS: OXYCODONE HCL IR 5 MG TAB (IMMEDIATE RELEASE) PO PRN ×4 (03:40→22:44)
[2017-02-26] MEDS: SODIUM CHLORIDE 0.9% 1000ML 1,000 ML IV SCH ×2 (03:41→07:42)
--- NOTE | 2017-02-26 06:03 | Progress Note ---
Progress Note Date of Service Feb 26, 2017. Progress Note Received call about patient refusing labs and wanting to go home because he has a nerve block scheduled Arrived at bedside to discuss. Patient was Upset that no one has given him an update about his blood work. So he did not want anything drawn today He gave me a long explanation for why he needs to go. In short, if he skips his nerve block, he will be non-functional for the next 2 months and will also not get refills for his tramadol. I explained my concerns about his renal function, not having improved and possibility of progressing to renal failure if this is not corrected prior to discharge. He remained adamant about his appointment. I raised the possibility of perhaps having the nerve block done in hospital by pain management? Did not make any promises but would bring this up with the day team. Alternatively, we could contact Dr. Pierre and ask to rescheduled sooner than later, but he did not want us to interfere and "potentially mess with his appointment" It was explained that if he leaves, it would be against medical advice. He was agreeable to doing labs this morning. Will discuss with Day time.
[2017-02-26 07:00] LABS: COMPLETE YES; HEMATOCRIT 34.3 % (42-52); IG% 0.8 %; LYMPH % 19.2 %; LYMPH ABS # 0.98 K/uL (1.2-3.4); MEAN CELL VOLUME 84.9 fL (80-100); MEAN CORPUSCULAR HEMOGLOBIN 30.7 pg (25-34); MEAN CORPUSCULAR HGB CONC 36.2 g/dl (32-36); MEAN PLATELET VOLUME 9.9 fL (7.4-10.4); MONO % 11.4 %; NEUT % 67.6 %; PLATELET COUNT 211 K/uL (130-400); RED BLOOD COUNT 4.04 M/uL (4.7-6.1)
[2017-02-26 07:23] LABS: BUN/CREATININE RATIO 10.7 (10-20); CALCIUM 8.8 mg/dl (8.5-10.1); CREATININE 3.4 mg/dl (0.60-1.40); MAGNESIUM 2.5 mg/dl (1.8-2.4); POTASSIUM 3.2 mmol/L (3.5-5.1)
[2017-02-26] MEDS: MULTIVITAMIN TAB PO SCH (07:40)
[2017-02-26] MEDS: CHECK CLONIDINE PATCH PLACEMENT SCH ×2 (07:42→17:35)
[2017-02-26] MEDS ORDERED: AMLODIPINE BESYLATE 5 MG TAB PO SCH (09:00)
[2017-02-26] MEDS ORDERED: LISINOPRIL 40 MG TAB PO SCH (09:00)
--- NOTE | 2017-02-26 10:22 | DIAGNOSTIC IMAGING REPORT ---
RENAL ULTRASOUND HISTORY: BLAKE worsening COMPARISON: Abdomen and pelvis CT 02/24/2017. FINDINGS: Right kidney: 11.1 cm. No hydronephrosis. Small perinephric fluid. The renal cortex is echogenic. Left kidney: 10.6 cm. No hydronephrosis. The renal cortex is echogenic. Bladder: The bladder is not well-distended. Mild bladder wall thickening. Only the left ureteral jet was identified this time. IMPRESSION: 1. Bilateral increased renal cortical echogenicity consistent with medical renal disease. 2. No hydronephrosis. 3. Mild right perinephric edema/fluid which is unchanged. 4. Mild bladder wall thickening, unchanged. Electronically signed by: Ramesh Aparicio M.D. 02/26/2017 10:20 AM Dictated Date/Time: 02/26/2017 10:18 AM
[2017-02-26] MEDS ORDERED: NURSING VERBAL MED ORDER ONE (10:45)
[2017-02-26] MEDS ORDERED: AMLODIPINE BESYLATE 5 MG TAB PO ONE (11:00)
[2017-02-26] MEDS ORDERED: POTASSIUM CHLORIDE 10 MEQ TABCR PO ONE (11:00)
[2017-02-26] MEDS: BISACODYL 10 MG SUPP PR PRN ×2 (11:14→13:57)
[2017-02-26] MEDS: PANTOprazole INJ 40 MG in SYRINGE 0 ML IV SCH (11:14)
--- NOTE | 2017-02-26 12:19 | Nephrology Consultation ---
Nephrology Consultation Date & Providers Date of Consultation: Feb 26, 2017. Primary Care Provider: No Doctor, Assigned Referring Provider: Reason for Consultation Evaluation management for acute kidney injury and hyponatremia. History of Present Illness John is a 61-year-old gentlemen with past medical history significant for hypertension admitted to the hospital with abdominal pain and found to have acute kidney injury and hyponatremia. Electronic medical records including labs and imaging are reviewed in detail during patient's visit. John was admitted to the hospital to a.m. on 02/25/2016 with 4 days history of lower abdominal pain and constipation. Did not have any nausea vomiting but he did give report of taking he which amount of saltine crackers prior to his symptoms starting. On admission CT abdomen and pelvis was positive for possible ileus and he was started on clear liquid. He was given enema and had 3 bowel movements since yesterday. He has no known history of chronic kidney disease, his baseline creatinine was 1.3 up on last lab which was on January 2016. on admission creatinine was 3.4 and has been staying around 3.4-3.6. urinalysis positive for trace proteinuria and microscopic hematuria. CT abdomen pelvis showed otherwise normal size kidney without any evidence of hydronephrosis, nephrolithiasis or renal mass. he has been non-oliguric. At home he was on lisinopril and also has been taking indomethacin and naproxen chronically for history of go out and also history of back pain due to prior or accident. he was also taking narcotics chronically for his back pain. He has been on Protonix for many years. Currently he still has some abdominal pain and discomforted but had bowel movement x3 since yesterday. Denies shortness of breath or chest pain. No fever or chills. Has history of hypertension, he has been on lisinopril 40 milligram p.o. daily but he mentioned that his blood pressure at home occasionally around 185 systolic No history of diabetes or coronary artery disease. His a nonsmoker. Drinks 4-5 days alcoholic drinks per day. His mom had chronic kidney disease and of renal failure many years ago but he could not really provide any detailed information about that. Allergies Coded Allergies: Aspirin (Verified Adverse Reaction, Severe, GI SYMPTOMS, 02/24/17) BLOOD IN STOOL (REGULAR STRENGTH ASPIRIN) Methadone (Verified Adverse Reaction, Severe, VOMITING, 02/24/17) Inpatient Medications Current Inpatient Medications Medications (Trade) Dose Ordered Sig/Romana Route Start Time Stop Time Status Last Admin Dose Admin Ioversol 100 ml 100 ml UD PRN IV 02/24/17 21:45 02/28/17 21:44 Sodium Chloride (Nss 1000ml) 1,000 ml @ 100 mls/hr Q10H IV 02/25/17 02:00 03/27/17 01:59 02/26/17 07:42 100 MLS/HR Acetaminophen (Tylenol Tab) 650 mg Q4H PRN PO 02/25/17 00:45 03/27/17 00:44 Zolpidem Tartrate (Ambien Tab) 5 mg HSZ PRN PO 02/25/17 00:45 03/27/17 00:44 Tramadol HCl (Ultram Tab) 50 mg TID PRN PO 02/25/17 00:45 03/27/17 00:44 02/25/17 01:31 50 MG Tizanidine HCl (Zanaflex Tab) 2 mg TID PRN PO 02/25/17 00:45 03/27/17 00:44 Ondansetron HCl (Zofran Inj) 4 mg Q6H PRN IV 02/25/17 00:45 03/27/17 00:44 Diphenhydramine HCl 25 mg 25 mg Q4H PRN IV 02/25/17 00:45 03/27/17 00:44 Pantoprazole Sodium/Syringe (Protonix Inj/ Syringe) 10 ml @ 5 mls/min DAILY@11 IV 02/25/17 11:00 03/27/17 10:59 02/26/17 11:14 5 MLS/MIN Bisacodyl (Dulcolax Supp) 10 mg DAILY PRN GA 02/25/17 00:45 03/27/17 00:44 02/26/17 11:14 10 MG Sodium Biphosphate/ Sodium Phosphate (Fleet Enema) 132 ml DAILY PRN GA 02/25/17 00:45 03/27/17 00:44 02/25/17 06:42 132 ML Ipratropium Elrod (Atrovent 0.02% 0.5MG/2.5ML Neb) 0.5 mg Q6R INH 02/25/17 03:00 03/27/17 02:59 Levalbuterol (Xopenex 1.25MG/ 0.5ML Neb) 1.25 mg Q6R INH 02/25/17 03:00 03/27/17 02:59 Ipratropium [place]rod (Atrovent 0.02% 0.5MG/2.5ML Neb) 0.5 mg Q2H PRN INH 02/25/17 01:15 03/27/17 01:14 Levalbuterol (Xopenex 1.25MG/ 0.5ML Neb) 1.25 mg Q2H PRN INH 02/25/17 01:15 03/27/17 01:14 Oxycodone HCl (Roxicodone Immediate Rel Tab) 10 mg Q4H PRN PO 02/25/17 02:00 03/11/17 01:59 02/26/17 03:40 10 MG Oxycodone HCl (Roxicodone Immediate Rel Tab) 5 mg Q4H PRN PO 02/25/17 02:00 03/11/17 01:59 Allopurinol (Zyloprim Tab) 50 mg DAILY PRN PO 02/25/17 11:00 03/27/17 10:59 Future Hold Indomethacin (Indocin Cap) 25 mg BID PRN PO 02/25/17 11:00 03/27/17 10:59 Future Hold Lisinopril (Zestril Tab) 40 mg QAM PO 02/26/17 09:00 03/28/17 08:59 Future Hold Hydralazine HCl (HydrALAZINE INJ) 10 mg Q6H PRN IV. 02/25/17 11:15 03/27/17 11:14 Future Hold 02/25/17 15:29 10 MG Clonidine HCl (Nlpgteua-[id number]-7 0.2mg/24hr Patch) 1 patch Q7D@1400 TD 02/25/17 14:00 03/27/17 13:59 02/25/17 14:13 1 PATCH Miscellaneous (Remove Clonidine Patch) 1 ea Q7D@1359 N/A 03/04/17 13:59 04/03/17 13:58 Miscellaneous Information (Check Clonidine Patch Placement) 1 ea QS N/A 02/25/17 16:00 03/27/17 15:59 02/26/17 07:42 1 EA Hydralazine HCl (Apresoline Tab) 25 mg TID PO 02/25/17 21:00 03/27/17 20:59 02/26/17 07:40 25 MG Amlodipine Besylate (Norvasc Tab) 5 mg QAM PO 02/26/17 09:00 03/28/17 08:59 02/26/17 07:41 5 MG Multivitamins (Multivitamin Tab) 1 tab QAM PO 02/26/17 09:00 03/28/17 08:59 02/26/17 07:40 1 TAB Family History Patient reports no known family medical history. Social History Smoking Status: Never Smoker Smokeless Tobacco Use: No Alcohol Use: socially Drug Use: none Marital Status: single Review of Systems A complete review of systems was performed. Pertinent positives are noted above. All other systems are negative. Physical Exam Date Time Temp Pulse Resp B/P Pulse Ox O2 Delivery O2 Flow Rate FiO2 02/26/17 08:00 Room Air 02/26/17 07:00 37.0 101 18 198/95 94 Room Air 189/95 02/26/17 04:00 Room Air 02/26/17 03:15 37.0 104 18 193/81 93 Room Air 02/26/17 00:06 36.8 94 18 195/111 95 Room Air 02/25/17 23:59 Room Air 02/25/17 20:48 203/115 02/25/17 20:11 36.9 92 18 197/108 97 Room Air 02/25/17 20:00 Room Air 02/25/17 18:36 90 18 195/110 02/25/17 18:00 90 195/110 02/25/17 17:32 100 185/114 02/25/17 16:39 86 187/111 02/25/17 16:30 102 186/114 02/25/17 15:56 Room Air 02/25/17 15:10 36.8 108 20 186/115 97 Room Air 02/25/17 12:10 187/85 Laboratory Results Last 24 Hours Test 02/25/17 12:20 02/26/17 06:05 White Blood Count 5.85 K/uL 5.10 K/uL Red Blood Count 4.55 M/uL 4.04 M/uL Hemoglobin 14.3 g/dL 12.4 g/dL Hematocrit 38.8 % 34.3 % Mean Corpuscular Volume 85.3 fL 84.9 fL Mean Corpuscular Hemoglobin 31.4 pg 30.7 pg Mean Corpuscular Hemoglobin Concent 36.9 g/dl 36.2 g/dl Platelet Count 220 K/uL 211 K/uL Mean Platelet Volume 10.1 fL 9.9 fL Neutrophils (%) (Auto) 79.5 % 67.6 % Lymphocytes (%) (Auto) 13.2 % 19.2 % Monocytes (%) (Auto) 6.5 % 11.4 % Eosinophils (%) (Auto) 0.3 % 1.0 % Basophils (%) (Auto) 0.2 % 0.0 % Neutrophils # (Auto) 4.65 K/uL 3.45 K/uL Lymphocytes # (Auto) 0.77 K/uL 0.98 K/uL Monocytes # (Auto) 0.38 K/uL 0.58 K/uL Eosinophils # (Auto) 0.02 K/uL 0.05 K/uL Basophils # (Auto) 0.01 K/uL 0.00 K/uL RDW Standard Deviation 41.4 fL 42.2 fL RDW Coefficient of Variation 13.4 % 13.6 % Immature Granulocyte % (Auto) 0.3 % 0.8 % Immature Granulocyte # (Auto) 0.02 K/uL 0.04 K/uL Sodium Level 129 mmol/L 134 mmol/L Potassium Level 3.4 mmol/L 3.2 mmol/L Chloride Level 91 mmol/L 99 mmol/L Carbon Dioxide Level 22 mmol/L 23 mmol/L Anion Gap 16.0 mmol/L 12.0 mmol/L Blood Urea Nitrogen 35 mg/dl 37 mg/dl Creatinine 3.60 mg/dl 3.40 mg/dl Est Creatinine Clear Calc Drug Dose 21.9 ml/min 23.4 ml/min Estimated GFR () 19.9 21.3 Estimated GFR (Non- 17.2 18.4 BUN/Creatinine Ratio 9.8 10.7 Random Glucose 125 mg/dl 121 mg/dl Calcium Level 9.4 mg/dl 8.8 mg/dl Magnesium Level 2.5 mg/dl Impression (1) Acute kidney injury (2) Hyponatremia (3) Hypertension (4) Partial small bowel obstruction John is a 61-year-old gentlemen with history of hypertension, at home was on lisinopril, has been taking heavy NSAID at home chronically admitted to the hospital with lower abdominal pain secondary to ileus with possibly narcotic medication use. CT abdomen pelvis on admission showed partial SBO, he was given enemas and had 3 bowel movement since yesterday. On clear liquid diet. No history of coronary artery disease, diabetes for smoking. No prior history of chronic kidney disease, last creatinine was 1.3 in January 2016, on admission creatinine was 3.4 which has been stable from 3.4-3.6. Urinalysis was positive for low grade proteinuria and microscopic hematuria. He has been using naproxen and indomethacin chronically. Also has been on PPI. Was on lisinopril 40 milligram p.o. daily for hypertension which is on hold since admission. Acute kidney injury most likely seems to be hemodynamically mediated with concomitant use of CARLOS-inhibitor, heavy NSAID use. Creatinine remained stable over last 2 days without significant improvement. remain non- oliguric. He was found to be hypernatremic on admission with low urine osmolality. Possibly secondary to increased free water intake and excessive alcohol intake and decrease free water clearance. Serum sodium was 127 on admission over last 2 days improved to 134 this morning. Recommendations --increase amlodipine to 10 milligrams p.o. daily --suggest starting on metoprolol 50 milligram twice a day --avoid further IV fluid --monitor renal function with daily renal panel, expect renal function to slowly start to improve --advised patient to limit alcohol intake --dose medication for GFR <30 --advise patient to stop indomethacin and naproxen, for his chronic pain okay to take tramadol or Percocet Thank you for allowing me to participate in your patient's care. It was a pleasure to see John This chart was completed utilizing [employer] Speech and voice recognition software. Grammatical errors, random word insertions, pronoun errors and incomplete sentences are occasional consequences of this system. Any questions or concerns about the content, text or information contained within the body of this dictation should be addressed directly to the physician for clarification.
[2017-02-26] MEDS ORDERED: SOD PHOSPHATE/SOD BIPHOSPHATE ENEMA 132 ML BTL PR PRN (14:00)
--- NOTE | 2017-02-26 14:04 | Progress Note ---
Subjective Date of Service: Feb 26, 2017. Subjective Pt evaluation today including: conversation w/ patient, physical exam, chart review, lab review, review of studies, review of inpatient medication list Problem List Medical Problems: (1) Acute renal failure Status: Acute (2) Chronic back pain Status: Acute (3) Partial small bowel obstruction Status: Acute Review of Systems Constitutional: No chills, No fever Respiratory: No cough, No dyspnea on exertion, No shortness of breath, No sputum, No wheezing Cardiac: No chest pain, No orthopnea Abdomen: + constipation, No diarrhea, No nausea, No pain, No vomiting Musculoskeletal: No joint pain, No muscle pain Male : No dysuria, No urinary frequency Objective Vital Signs Date Time Temp Pulse Resp B/P Pulse Ox O2 Delivery O2 Flow Rate FiO2 02/26/17 12:00 Room Air 02/26/17 11:48 36.7 106 20 194/94 94 Room Air 02/26/17 08:00 Room Air 02/26/17 07:00 37.0 101 18 198/95 94 Room Air 189/95 02/26/17 04:00 Room Air 02/26/17 03:15 37.0 104 18 193/81 93 Room Air 02/26/17 00:06 36.8 94 18 195/111 95 Room Air 02/25/17 23:59 Room Air 02/25/17 20:48 203/115 02/25/17 20:11 36.9 92 18 197/108 97 Room Air 02/25/17 20:00 Room Air 02/25/17 18:36 90 18 195/110 02/25/17 18:00 90 195/110 02/25/17 17:32 100 185/114 02/25/17 16:39 86 187/111 02/25/17 16:30 102 186/114 02/25/17 15:56 Room Air 02/25/17 15:10 36.8 108 20 186/115 97 Room Air Physical Exam General Appearance: WD/WN, no apparent distress Neck: supple, no adenopathy Respiratory/Chest: chest non-tender, lungs clear, normal breath sounds Cardiovascular: regular rate, rhythm, no edema, no gallop Abdomen: non tender, soft, + distended Neurologic/Psychiatric: alert, oriented x 3 Laboratory Results Last 24 Hours Test 02/26/17 06:05 White Blood Count 5.10 K/uL Red Blood Count 4.04 M/uL Hemoglobin 12.4 g/dL Hematocrit 34.3 % Mean Corpuscular Volume 84.9 fL Mean Corpuscular Hemoglobin 30.7 pg Mean Corpuscular Hemoglobin Concent 36.2 g/dl Platelet Count 211 K/uL Mean Platelet Volume 9.9 fL Neutrophils (%) (Auto) 67.6 % Lymphocytes (%) (Auto) 19.2 % Monocytes (%) (Auto) 11.4 % Eosinophils (%) (Auto) 1.0 % Basophils (%) (Auto) 0.0 % Neutrophils # (Auto) 3.45 K/uL Lymphocytes # (Auto) 0.98 K/uL Monocytes # (Auto) 0.58 K/uL Eosinophils # (Auto) 0.05 K/uL Basophils # (Auto) 0.00 K/uL RDW Standard Deviation 42.2 fL RDW Coefficient of Variation 13.6 % Immature Granulocyte % (Auto) 0.8 % Immature Granulocyte # (Auto) 0.04 K/uL Sodium Level 134 mmol/L Potassium Level 3.2 mmol/L Chloride Level 99 mmol/L Carbon Dioxide Level 23 mmol/L Anion Gap 12.0 mmol/L Blood Urea Nitrogen 37 mg/dl Creatinine 3.40 mg/dl Est Creatinine Clear Calc Drug Dose 23.4 ml/min Estimated GFR () 21.3 Estimated GFR (Non- 18.4 BUN/Creatinine Ratio 10.7 Random Glucose 121 mg/dl Calcium Level 8.8 mg/dl Magnesium Level 2.5 mg/dl Assessment and Plan Right lower lobe pneumonia and effusion--the patient will be admitted to telemetry for oxygen monitoring. We'll place on ceftriaxone 1 g IV daily, azithromycin 500 mg IV daily, and Xopenex with Atrovent nebulizer every 6 hours while awake and every 2 hours when necessary. Nonobstructive colonic ileus--he'll be placed on a full liquid diet. We'll start Dulcolax suppository tonight and daily when necessary. Fleets enema daily when necessary, and hydrate with IV fluids. Added colace. Likely secondary to medications he used, including Percocet and a leftover fentanyl patch. Acute renal insufficiency--creatinine upon admission labs is 3.3, with baseline of 1.3. Nephrology consulted. Renal US ordered. Likely secondary to NSAID use Hypoosmolar hyponatremia--likely secondary to combination of Ex-Lax tablets and MiraLAX that he used. Follow serial laboratories.
[2017-02-26] MEDS ORDERED: METOPROLOL SUCC 50MG EXT REL TAB PO SCH (20:00)
[2017-02-26] MEDS: DOCUSATE SODIUM 100 MG CAP PO SCH (21:24)
[2017-02-27] VITALS (7 sets, daily range): BP systolic 164–199; BP diastolic 91–103; PULSE 76–97; TEMP 36.6–36.9; O2SAT 84–97
[2017-02-27] MEDS: CHECK CLONIDINE PATCH PLACEMENT SCH ×3 (00:31→16:39)
[2017-02-27] MEDS: LEVALBUTEROL 1.25MG/0.5ML NEB INH SCH ×4 (02:12→19:22)
[2017-02-27] MEDS: IPRATROPIUM BROMIDE NEB SOLN 0.02% 2.5 ML VIAL INH SCH ×4 (02:12→19:22)
[2017-02-27] MEDS: OXYCODONE HCL IR 5 MG TAB (IMMEDIATE RELEASE) PO PRN ×4 (05:10→20:30)
[2017-02-27 05:52] LABS: BASO % 0.2 %; BASO ABS # 0.01 K/uL (0-0.2); COMPLETE YES; EOS % 1.4 %; HEMATOCRIT 34.5 % (42-52); IG% 0.9 %; LYMPH % 17.6 %; LYMPH ABS # 1.14 K/uL (1.2-3.4); MEAN CELL VOLUME 85.2 fL (80-100); MEAN CORPUSCULAR HEMOGLOBIN 30.1 pg (25-34); MEAN CORPUSCULAR HGB CONC 35.4 g/dl (32-36); MEAN PLATELET VOLUME 9.3 fL (7.4-10.4); MONO % 12.2 %; NEUT % 67.7 %; PLATELET COUNT 222 K/uL (130-400); RED BLOOD COUNT 4.05 M/uL (4.7-6.1); WHITE BLOOD COUNT 6.46 K/uL (4.8-10.8)
[2017-02-27 06:44] LABS: BUN/CREATININE RATIO 10.4 (10-20); CALCIUM 9.8 mg/dl (8.5-10.1); CREATININE 3.4 mg/dl (0.60-1.40); MAGNESIUM 2.2 mg/dl (1.8-2.4); POTASSIUM 3.8 mmol/L (3.5-5.1)
[2017-02-27] MEDS: DOCUSATE SODIUM 100 MG CAP PO SCH ×2 (09:28→20:28)
[2017-02-27] MEDS: AMLODIPINE BESYLATE 5 MG TAB PO SCH (09:28)
[2017-02-27] MEDS: METOPROLOL SUCC 50MG EXT REL TAB PO SCH ×2 (09:28→20:28)
[2017-02-27] MEDS: MULTIVITAMIN TAB PO SCH (09:29)
[2017-02-27] MEDS: PANTOprazole INJ 40 MG in SYRINGE 0 ML IV SCH (11:26)
[2017-02-27 11:37] LABS: URINE APPEARANCE CLEAR (CLEAR); URINE BILIRUBIN NEG (NEG); URINE COLOR YELLOW; URINE NITRITE NEG (NEG); URINE SPECIFIC GRAVITY 1.012 (1.000-1.030); UROBILINOGEN NEG (NEG)
[2017-02-27 11:39] LABS: MANUAL MICROSCOPIC REQUIRED? NO; REVIEW REQ? NO
--- NOTE | 2017-02-27 12:07 | Nephrology Progress Note ---
Nephrology Progress Note Date of Service Feb 27, 2017. Chief Complaint F/U for acute kidney injury and hyponatremia. Subjective John was seen and examined in his room this morning. He continues to have significant abdominal pain specially on the right upper are and lower quadrant. he had enema and had 3 small bowel movement and has been tolerating soft diet. No significant improvement in renal function, remain non-oliguric. Blood pressure continues to be elevated. Serum sodium slightly low at 133 Review of Systems A complete review of systems was performed. Pertinent positives are noted above. All other systems are negative. Vital Signs Last 8 Hrs Date Time Temp Pulse Resp B/P Pulse Ox O2 Delivery O2 Flow Rate FiO2 02/27/17 09:00 Room Air 02/27/17 07:46 36.6 97 18 199/103 94 I & O 24-Hour Column 02/27/17 08:00 Intake Total 759 ml Output Total 350 ml Balance 409 ml Last Recorded Weight Weight (Kilograms): 85.300 Physical Exam GENERAL: Middle-aged male, AAA x 3, pleasant, healthy-appearing, not in any distress. NECK: Supple, no JVD. RESPIRATORY: Normal breathing efforts, no accessory muscle use, clear to auscultation bilaterally, no wheezes or rales. CARDIOVASCULAR: S1, S2 normal, rate rhythm regular. ABDOMEN: Obese, mild diffuse tenderness in right lower and upper quadrant, positive bowel sound. EXTREMITY: No lower extremity edema NEURO: speech fluent. PSYCHIATRY: Normal mood and judgment Family History Patient reports no known family medical history. Social History Smokeless Tobacco Use: No Alcohol Use: socially Drug Use: none Marital Status: single Laboratory Results Past 24 Hours 02/27/17 05:37 Red Blood Count 4.05, Mean Corpuscular Volume 85.2, Mean Corpuscular Hemoglobin 30.1, Mean Corpuscular Hemoglobin Concent 35.4, Mean Platelet Volume 9.3, Neutrophils (%) (Auto) 67.7, Lymphocytes (%) (Auto) 17.6, Monocytes (%) (Auto) 12.2, Eosinophils (%) (Auto) 1.4, Basophils (%) (Auto) 0.2, Neutrophils # (Auto ) 4.37, Lymphocytes # (Auto) 1.14, Monocytes # (Auto) 0.79, Eosinophils # (Auto ) 0.09, Basophils # (Auto) 0.01 02/27/17 05:37 Test 02/27/17 05:37 02/27/17 11:15 White Blood Count 6.46 K/uL (4.8-10.8) Red Blood Count 4.05 M/uL (4.7-6.1) Hemoglobin 12.2 g/dL (14.0-18.0) Hematocrit 34.5 % (42-52) Mean Corpuscular Volume 85.2 fL (80-100) Mean Corpuscular Hemoglobin 30.1 pg (25-34) Mean Corpuscular Hemoglobin Concent 35.4 g/dl (32-36) Platelet Count 222 K/uL (130-400) Mean Platelet Volume 9.3 fL (7.4-10.4) Neutrophils (%) (Auto) 67.7 % Lymphocytes (%) (Auto) 17.6 % Monocytes (%) (Auto) 12.2 % Eosinophils (%) (Auto) 1.4 % Basophils (%) (Auto) 0.2 % Neutrophils # (Auto) 4.37 K/uL (1.4-6.5) Lymphocytes # (Auto) 1.14 K/uL (1.2-3.4) Monocytes # (Auto) 0.79 K/uL (0.11-0.59) Eosinophils # (Auto) 0.09 K/uL (0-0.5) Basophils # (Auto) 0.01 K/uL (0-0.2) RDW Standard Deviation 43.4 fL (36.4-46.3) RDW Coefficient of Variation 13.9 % (11.5-14.5) Immature Granulocyte % (Auto) 0.9 % Immature Granulocyte # (Auto) 0.06 K/uL (0.00-0.02) Anion Gap 9.0 mmol/L (3-11) Est Creatinine Clear Calc Drug Dose 23.4 ml/min Estimated GFR () 21.3 Estimated GFR (Non- 18.4 BUN/Creatinine Ratio 10.4 (10-20) Calcium Level 9.8 mg/dl (8.5-10.1) Magnesium Level 2.2 mg/dl (1.8-2.4) Urine Color YELLOW Urine Appearance CLEAR (CLEAR) Urine pH 5.0 (4.5-7.5) Urine Specific [place] 1.012 (1.000-1.030) Urine Protein NEG (NEG) Urine Glucose (UA) NEG (NEG) Urine Ketones NEG (NEG) Urine Occult Blood NEG (NEG) Urine Nitrite NEG (NEG) Urine Bilirubin NEG (NEG) Urine Urobilinogen NEG (NEG) Urine Leukocyte Esterase NEG (NEG) Allergies Coded Allergies: Aspirin (Verified Adverse Reaction, Severe, GI SYMPTOMS, 02/24/17) BLOOD IN STOOL (REGULAR STRENGTH ASPIRIN) Methadone (Verified Adverse Reaction, Severe, VOMITING, 02/24/17) Medications Current Inpatient Medications Medications (Trade) Dose Ordered Sig/Romana Route Start Time Stop Time Status Last Admin Dose Admin Ioversol (Optiray 320) 100 ml UD PRN IV 02/24/17 21:45 02/28/17 21:44 Acetaminophen (Tylenol Tab) 650 mg Q4H PRN PO 02/25/17 00:45 03/27/17 00:44 Zolpidem Tartrate (Ambien Tab) 5 mg HSZ PRN PO 02/25/17 00:45 03/27/17 00:44 Tramadol HCl (Ultram Tab) 50 mg TID PRN PO 02/25/17 00:45 03/27/17 00:44 02/25/17 01:31 50 MG Tizanidine HCl (Zanaflex Tab) 2 mg TID PRN PO 02/25/17 00:45 03/27/17 00:44 Ondansetron HCl (Zofran Inj) 4 mg Q6H PRN IV 02/25/17 00:45 03/27/17 00:44 Diphenhydramine HCl 25 mg 25 mg Q4H PRN IV 02/25/17 00:45 03/27/17 00:44 Pantoprazole Sodium/Syringe (Protonix Inj/ Syringe) 10 ml @ 5 mls/min DAILY@11 IV 02/25/17 11:00 03/27/17 10:59 02/27/17 11:26 5 MLS/MIN Bisacodyl (Dulcolax Supp) 10 mg DAILY PRN [place] 02/25/17 00:45 03/27/17 00:44 02/26/17 13:57 10 MG Sodium Biphosphate/ Sodium Phosphate (Fleet Enema) 132 ml DAILY PRN TN 02/25/17 00:45 03/27/17 00:44 02/25/17 06:42 132 ML Ipratropium [place] (Atrovent 0.02% 0.5MG/2.5ML Neb) 0.5 mg Q6R INH 02/25/17 03:00 03/27/17 02:59 Levalbuterol (Xopenex 1.25MG/ 0.5ML Neb) 1.25 mg Q6R INH 02/25/17 03:00 03/27/17 02:59 Ipratropium [place] (Atrovent 0.02% 0.5MG/2.5ML Neb) 0.5 mg Q2H PRN INH 02/25/17 01:15 03/27/17 01:14 Levalbuterol (Xopenex 1.25MG/ 0.5ML Neb) 1.25 mg Q2H PRN INH 02/25/17 01:15 03/27/17 01:14 Oxycodone HCl (Roxicodone Immediate Rel Tab) 10 mg Q4H PRN PO 02/25/17 02:00 03/11/17 01:59 02/27/17 09:35 10 MG Oxycodone HCl (Roxicodone Immediate Rel Tab) 5 mg Q4H PRN PO 02/25/17 02:00 03/11/17 01:59 Allopurinol (Zyloprim Tab) 50 mg DAILY PRN PO 02/25/17 11:00 03/27/17 10:59 Future Hold Indomethacin (Indocin Cap) 25 mg BID PRN PO 02/25/17 11:00 03/27/17 10:59 Future Hold Lisinopril (Zestril Tab) 40 mg QAM PO 02/26/17 09:00 03/28/17 08:59 Future Hold Hydralazine HCl (HydrALAZINE INJ) 10 mg Q6H PRN IV. 02/25/17 11:15 03/27/17 11:14 Future Hold 02/25/17 15:29 10 MG Clonidine HCl (Unuoemgm-Vgv-5 0.2mg/24hr Patch) 1 patch Q7D@1400 TD 02/25/17 14:00 03/27/17 13:59 02/25/17 14:13 1 PATCH Miscellaneous (Remove Clonidine Patch) 1 ea Q7D@1359 N/A 03/04/17 13:59 04/03/17 13:58 Miscellaneous Information (Check Clonidine Patch Placement) 1 ea QS N/A 02/25/17 16:00 03/27/17 15:59 02/27/17 09:29 1 EA Hydralazine HCl (Apresoline Tab) 25 mg TID PO 02/25/17 21:00 03/27/17 20:59 02/27/17 09:27 25 MG Multivitamins (Multivitamin Tab) 1 tab QAM PO 02/26/17 09:00 03/28/17 08:59 02/27/17 09:29 1 TAB Docusate Sodium (coLACE CAP) 100 mg BID PO 02/26/17 20:00 03/28/17 20:59 02/27/17 09:28 100 MG Sodium Biphosphate/ Sodium Phosphate (Fleet Enema) 132 ml DAILY PRN [place] 02/26/17 14:00 03/28/17 13:59 Amlodipine Besylate (Norvasc Tab) 10 mg QAM PO 02/27/17 08:00 03/29/17 07:59 02/27/17 09:28 10 MG Metoprolol Succinate (Toprol Xl Tab) 100 mg BID PO 02/27/17 08:00 03/29/17 07:59 02/27/17 09:28 100 MG Impression (1) Acute kidney injury (2) Hyponatremia (3) Hypertension (4) Partial small bowel obstruction John is a 61-year-old gentlemen with history of hypertension, was on lisinopril, has been taking heavy NSAID at home chronically , admitted to the hospital with lower abdominal pain secondary to ileus with possibly narcotic medication use. CT abdomen pelvis on admission showed partial SBO, he was given enemas and had 3 bowel movement since yesterday. On clear liquid diet. No history of coronary artery disease, diabetes or smoking. No prior history of chronic kidney disease, last creatinine was 1.3 in January 2016, on admission creatinine was 3.4 which has been stable from 3.4-3.6. Urinalysis initially was positive for low grade proteinuria and microscopic hematuria, repeat UA this morning was negative for proteinuria or hematuria. He has been using naproxen and indomethacin chronically. Also has been on PPI. Was on lisinopril 40 milligram p.o. daily for hypertension which is on hold since admission. Acute kidney injury most likely seems to be hemodynamically mediated with concomitant use of CARLOS-inhibitor, heavy NSAID use. Creatinine remained stable over last 2 days without significant improvement. Remain non- oliguric. He was found to be hypernatremic on admission with low urine osmolality. Possibly secondary to increased free water intake and excessive alcohol intake and decrease free water clearance. Serum sodium was 127 on admission over last 2 days improved to 133 this morning. Recommendations --increase amlodipine to 10 milligrams p.o. daily and metoprolol to 100 milligram twice a day --avoid further IV fluid, decreased free water intake to less than 1500 mL --monitor renal function with daily renal panel, expect renal function to slowly start to improve --advised patient to limit alcohol intake --dose medication for GFR <30 --advise patient to stop indomethacin and naproxen, for his chronic pain okay to take tramadol or Percocet Will follow This chart was completed utilizing [employer] and voice recognition software. Grammatical errors, random word insertions, pronoun errors and incomplete sentences are occasional consequences of this system. Any questions or concerns about the content, text or information contained within the body of this dictation should be addressed directly to the physician for clarification.
[2017-02-27 12:25] LABS: URINE PROTIEN/CREAT RATIO 0.5 (0-0.2); URINE TOTAL PROTEIN 37.3 mg/dl (0-11.9)
--- NOTE | 2017-02-27 13:19 | Hospitalist Progress Note ---
Hospitalist Progress Note Date of Service Feb 27, 2017. (Jennifer Aponte ., UDAYC) Subjective Pt evaluation today including: conversation w/ patient, physical exam, chart review, lab review, review of inpatient medication list Pain: 5/10 aching pain in RUQ PO Intake: Tolerating full liquid diet Voiding: no voiding problems Patient currently complains of 5/10 aching pain in his right upper quadrant. He states that he just received some pain medication about an hour and a half ago, which does help with the pain. His pain is exacerbated by certain movements, deep breaths, and palpation. Patient is tolerating liquids well. He denies any difficulties urinating. The patient had a small loose bowel movement last night after receiving a suppository. The patient denies fevers, chills, sweats, chest pain, palpitations, claudication, cough, wheezing, shortness of breath, nausea, vomiting, dysuria, hematuria, urinary retention, paralysis, weakness, numbness and tingling. Additional Comments: See HPI for pertinent positives and negatives. All other systems reviewed and negative. (Jennifer Aponte, KEVIN-C) Objective Vital Signs Date Time Temp Pulse Resp B/P Pulse Ox O2 Delivery O2 Flow Rate FiO2 02/27/17 09:00 Room Air 02/27/17 07:46 36.6 97 18 199/103 94 02/27/17 00:00 Room Air 02/26/17 23:10 36.9 110 20 189/99 96 Room Air 02/26/17 16:10 96 Room Air 02/26/17 14:51 36.8 110 20 195/99 96 Room Air (Jennifer Aponte, KEVIN-C) Physical Exam General Appearance: WD/WN, no apparent distress, + obese Eyes: normal inspection, PERRL, EOMI ENT: normal ENT inspection, hearing grossly normal, pharynx normal Neck: supple, no JVD, trachea midline Respiratory/Chest: lungs clear, normal breath sounds, no respiratory distress Cardiovascular: no gallop, no murmur, + tachycardia (regular rhythm) Abdomen: normal bowel sounds, + distended, + tenderness (RUQ TTP) Extremities: non-tender, normal inspection, no pedal edema Neurologic/Psychiatric: alert, normal mood/affect, oriented x 3 Skin: normal color, warm/dry, no rash (Jennifer AponteESTRELLA) Laboratory Results Last 24 Hours Test 02/27/17 05:37 02/27/17 11:15 White Blood Count 6.46 K/uL Red Blood Count 4.05 M/uL Hemoglobin 12.2 g/dL Hematocrit 34.5 % Mean Corpuscular Volume 85.2 fL Mean Corpuscular Hemoglobin 30.1 pg Mean Corpuscular Hemoglobin Concent 35.4 g/dl Platelet Count 222 K/uL Mean Platelet Volume 9.3 fL Neutrophils (%) (Auto) 67.7 % Lymphocytes (%) (Auto) 17.6 % Monocytes (%) (Auto) 12.2 % Eosinophils (%) (Auto) 1.4 % Basophils (%) (Auto) 0.2 % Neutrophils # (Auto) 4.37 K/uL Lymphocytes # (Auto) 1.14 K/uL Monocytes # (Auto) 0.79 K/uL Eosinophils # (Auto) 0.09 K/uL Basophils # (Auto) 0.01 K/uL RDW Standard Deviation 43.4 fL RDW Coefficient of Variation 13.9 % Immature Granulocyte % (Auto) 0.9 % Immature Granulocyte # (Auto) 0.06 K/uL Sodium Level 133 mmol/L Potassium Level 3.8 mmol/L Chloride Level 99 mmol/L Carbon Dioxide Level 25 mmol/L Anion Gap 9.0 mmol/L Blood Urea Nitrogen 35 mg/dl Creatinine 3.40 mg/dl Est Creatinine Clear Calc Drug Dose 23.4 ml/min Estimated GFR () 21.3 Estimated GFR (Non- 18.4 BUN/Creatinine Ratio 10.4 Random Glucose 117 mg/dl Calcium Level 9.8 mg/dl Magnesium Level 2.2 mg/dl Urine Color YELLOW Urine Appearance CLEAR Urine pH 5.0 Urine Specific [place] 1.012 Urine Protein NEG Urine Glucose (UA) NEG Urine Ketones NEG Urine Occult Blood NEG Urine Nitrite NEG Urine Bilirubin NEG Urine Urobilinogen NEG Urine Leukocyte Esterase NEG Urine Random Creatinine 76.0 mg/dl Urine Random Total Protein 37.3 mg/dl Urine Protein/Creatinine Ratio 0.5 (Jennifer Aponte PA-C) Diagnostic Results Reviewed EKG and agree with interpretation as follows: 89 bpm, NSR Reviewed the following studies and agree with interpretation as follows: Patient Name: OK MOHAN III Unit Number: [id number] Dictated: 02/26/171017 Transcribed: 02/26/17 101 PAJ Printed Date/Time: [~ rep prt dt]/[~ rep prt tm] [~ rep ct labl] - [~ rep ct ivnm] [facility] [place] [address] Dictated: 02/26/171017 Transcribed: 02/26/171017 PAJ Printed Date/Time: [~ rep prt dt]/[~ rep prt tm] [~ rep ct labl] - [~ rep ct ivnm] Patient: OK MOHAN III Address1: [address] [place] [address] Rec: [id number] Address2: Acct ID: [id number] [facility] Zip: [place] [address] Date: 1955 Sex: M Room/Bed: [facility] Ref Phy: No Doctor, Assigned SC: C.2T Att Phy: Billy Quiñones D.O. Report #: [id number] Caty Phy: No Doctor, Assigned Test: RIO Admit Phy: Jaison Lynch M.D. Vamper: DYLON Interpreting Phy: Ramesh Aparicio MD Diagnosis: ACUTE RENAL FAILURE, COLONIC INERTIA Ordering Phy: Billy Quiñones D.O. Service Date: 02/26/17 Admit Date: 02/25/1704/05/17 MNE: [id number] CONF: DICTATED BY: Ramesh Aparicio M.D.]] CC: Billy Quiñones D.O. No Doctor, Assigned Endcc: [~ rep ct add3]] RENAL ULTRASOUND HISTORY: BLAKE worsening COMPARISON: Abdomen and pelvis CT 02/24/2017. FINDINGS: Right kidney: 11.1 cm. No hydronephrosis. Small perinephric fluid. The renal cortex is echogenic. Left kidney: 10.6 cm. No hydronephrosis. The renal cortex is echogenic. Bladder: The bladder is not well-distended. Mild bladder wall thickening. Only the left ureteral jet was identified this time. IMPRESSION: 1. Bilateral increased renal cortical echogenicity consistent with medical renal disease. 2. No hydronephrosis. 3. Mild right perinephric edema/fluid which is unchanged. 4. Mild bladder wall thickening, unchanged. Electronically signed by: Ramesh Aparicio M.D. 02/26/2017 10:20 AM Dictated Date/Time: 02/26/2017 10:18 AM The status of this report is Signed. Draft = Not yet reviewed or approved by Radiologist. Signed = Reviewed and approved by Radiologist. <AttendingPhy>Billy Quiñones D.O.</AttendingPhy> <FamilyPhy>No Doctor, Assigned</FamilyPhy> <PrimaryPhy>No Doctor, Assigned</PrimaryPhy> <UnitNumber> [id number]</UnitNumber> <VisitNumber>[id number]</VisitNumber> <PatientName> KIMBERLEEOK aYo III</PatientName> <DateOfBirth>1955</DateOfBirth> < Location>C.[facility]</Location> <ServiceDate>02/24/17</ServiceDate> <MNE>ESINDI</MNE> < OrderingPhy>Billy Quiñones D.O.</OrderingPhy> <OrderingPhyMNE>f rep ord dr chavez</OrderingPhyMNE> <DictatingPhyMNE>f rep dict dr chavez</DictatingPhyMNE> < CCListMNE>f rep ct scott</CCListMNE> <AdmittingPhyMNE>f pt admit dr chavez</ AdmittingPhyMNE> <AttendingPhyMNE>f pt attend dr chavez</AttendingPhyMNE> <ConsultingPhyMNE>f pt consult dr chavez</ConsultingPhyMNE> <FamilyPhyMNE>f pt fam dr chavez</FamilyPhyMNE> <OtherPhyMNE>f pt other dr chavez</OtherPhyMNE> < PrimaryPhyMNE>f pt prim care dr chavez</PrimaryPhyMNE> <ReferringPhyMNE>f pt referring dr chavez</ReferringPhyMNE> (Jennifer Aponte, ESTRELLA) Assessment and Plan 61-year-old male with a history of hypertension, gout and chronic pain who presented to the ED with abdominal pain 3 days after reportedly eating 85 saltine crackers and drinking beer. Last reported BM 2 days ago. States he took 34 Ex-Lax tablets and 17 doses of Miralax without relief. He was also taking significant amounts of naproxen and ibuprofen, and also took left over Percocet from a previous shoulder injury with the pain. He also gave himself a homemade enema of contact lens fluid. He also reports subjective fevers. Pt with low grade fever of 37.7C on arrival as well as tachycardic and hypertensive. Chest/abdomen x-ray showed mild bibasilar atelectasis and probable developing distal small bowel partial obstructive change. CT of abdomen/pelvis showed moderate distention of the proximal cecum to mid transverse colon, likely nonobstructive ileus. Nonobstructive colonic ileus--improving -Admit to med/surg -Continue full liquid diet. Pt tolerating well -Continue Dulcolax 10 mg TN qd prn constipation. Pt states these are helping -Fleet enema prn Acute renal failure--baseline creatinine 1.3 -Creatinine upon arrival 3.3 -Creatinine remains at 3.4 on 02/27 -Nephrology consulted, appreciate recs: Increase amlodipine to 10 mg PO qd. Increase metoprolol succinate to 100 mg PO BID. Avoid further IVF, decrease free water intake to less than 1500 mL. Advised patient to limit alcohol intake and stop indomethacin and naproxen. Okay to continue tramadol or Percocet. -Avoid nephrotoxins, continue to monitor -Renal U/S: bilateral increased renal cortical echogenicity consistent with renal disease. Mild right perinephric edema and mild bladder wall thickening, unchanged from 02/24 CT Hypertensive urgency--ongoing -Increase amlodipine to 10 mg PO qd, increase metoprolol succinate to 100 mg PO BID -Continue clonidine 0.2 mg patch -Consider starting Cardizem ER 240 mg PO qd if BP does not respond to increased CCB and BB Hyponatremia--stable -Sodium 126 on arrival -Fluid restriction per nephrology as above -Sodium 133 on 02/27 Gout -Hold allopurinol and indomethacin for now DVT prophylaxis -SCDs Code Status -Level I, FULL RESUSCITATION STATUS This chart was completed in part utilizing [employer] Speech Voice Recognition software. Attempts were made to minimize the grammatical errors, random word insertions, pronoun errors and incomplete sentences. Any formal questions or concerns about the content, text or information contained within the body of this dictation should be directly addressed to the provider for clarification. (Jennifer Aponte ., PA-C) I agree with PA assessment and plan and have seen and examined pt myself Resting comfortably in bed Discussed nerve block can not be done at this time BLAKE unchanged DC all IVF and start on fluid restriction BP uncontrolled Inc BB (Billy Quiñones D.O.)
[2017-02-27] MEDS: BISACODYL 10 MG SUPP PR PRN (16:36)
[2017-02-27] MEDS: CLONIDINE HCL 0.2 MG/24 HR TRANSDERM SYS TD SCH (20:27)
[2017-02-28] MEDS: IPRATROPIUM BROMIDE NEB SOLN 0.02% 2.5 ML VIAL INH SCH ×4 (01:15→19:10)
[2017-02-28] MEDS: LEVALBUTEROL 1.25MG/0.5ML NEB INH SCH ×4 (01:15→19:10)
[2017-02-28 07:12] VITALS: BP 189/104; PULSE 73; TEMP 36.8; O2SAT 96
[2017-02-28] MEDS: MULTIVITAMIN TAB PO SCH (07:22)
[2017-02-28] MEDS: DOCUSATE SODIUM 100 MG CAP PO SCH ×2 (07:22→20:24)
[2017-02-28] MEDS: AMLODIPINE BESYLATE 5 MG TAB PO SCH (07:22)
[2017-02-28] MEDS: METOPROLOL SUCC 50MG EXT REL TAB PO SCH ×2 (07:23→20:24)
[2017-02-28] MEDS: OXYCODONE HCL IR 5 MG TAB (IMMEDIATE RELEASE) PO PRN ×3 (07:28→20:25)
[2017-02-28] MEDS: CHECK CLONIDINE PATCH PLACEMENT SCH ×3 (07:30→16:14)
[2017-02-28 07:33] LABS: HEMATOCRIT 35.7 % (42-52); MEAN CELL VOLUME 87.5 fL (80-100); MEAN CORPUSCULAR HEMOGLOBIN 30.9 pg (25-34); MEAN CORPUSCULAR HGB CONC 35.3 g/dl (32-36); MEAN PLATELET VOLUME 9.6 fL (7.4-10.4); PLATELET COUNT 269 K/uL (130-400); RED BLOOD COUNT 4.08 M/uL (4.7-6.1); WHITE BLOOD COUNT 7.96 K/uL (4.8-10.8)
[2017-02-28 07:59] LABS: BUN/CREATININE RATIO 12.4 (10-20); CALCIUM 9.3 mg/dl (8.5-10.1); CREATININE 3.1 mg/dl (0.60-1.40); MAGNESIUM 1.9 mg/dl (1.8-2.4); POTASSIUM 4.2 mmol/L (3.5-5.1)
[2017-02-28 08:00] VITALS: O2SAT 96
[2017-02-28 08:00] LABS: PHOSPHORUS 4.6 mg/dl (2.5-4.9)
[2017-02-28] MEDS: DILTIAZEM HCL 240 MG CAPCR PO SCH (08:58)
--- NOTE | 2017-02-28 10:09 | Hospitalist Progress Note ---
Hospitalist Progress Note Date of Service Feb 28, 2017. (Jennifer Aponte, UDAYC) Subjective Pt evaluation today including: conversation w/ patient, physical exam, chart review, lab review, review of inpatient medication list Pain: 8/10 RUQ pain PO Intake: Tolerating full liquid diet Voiding: no voiding problems Patient complains of 8/10 sharp pain in the RUQ that radiates down to the RLQ. He otherwise denies any complaints. The patient denies fevers, chills, sweats, chest pain, palpitations, claudication, cough, wheezing, shortness of breath, nausea, vomiting, dysuria, hematuria, urinary retention, paralysis, weakness, numbness and tingling. Additional Comments: See HPI for pertinent positives and negatives. All other systems reviewed and negative. (Jennifer Aponte, KEVIN-C) Objective Vital Signs Date Time Temp Pulse Resp B/P Pulse Ox O2 Delivery O2 Flow Rate FiO2 02/28/17 08:00 96 Room Air 02/28/17 07:12 36.8 73 18 189/104 96 02/28/17 00:00 Room Air 02/27/17 23:16 36.9 76 20 164/96 97 Room Air 02/27/17 16:10 96 Room Air 02/27/17 15:17 36.7 95 18 195/91 96 02/27/17 12:55 174/93 02/27/17 12:50 185/96 (Jennifer Aponte, KEVIN-C) Physical Exam General Appearance: WD/WN, no apparent distress, + obese Eyes: normal inspection, PERRL, EOMI ENT: normal ENT inspection, hearing grossly normal, pharynx normal Neck: supple, no JVD, trachea midline Respiratory/Chest: lungs clear, normal breath sounds, no respiratory distress Cardiovascular: regular rate, rhythm, no gallop, no murmur Abdomen: normal bowel sounds, + distended, + tenderness (RUQ TTP) Extremities: non-tender, normal inspection, no pedal edema Neurologic/Psychiatric: alert, normal mood/affect, oriented x 3 Skin: normal color, warm/dry, no rash (Jennifer Aponte, PA-C) Laboratory Results Last 24 Hours Test 02/27/17 11:15 02/28/17 06:39 Urine Color YELLOW Urine Appearance CLEAR Urine pH 5.0 Urine Specific [place] 1.012 Urine Protein NEG Urine Glucose (UA) NEG Urine Ketones NEG Urine Occult Blood NEG Urine Nitrite NEG Urine Bilirubin NEG Urine Urobilinogen NEG Urine Leukocyte Esterase NEG Urine Random Creatinine 76.0 mg/dl Urine Random Total Protein 37.3 mg/dl Urine Protein/Creatinine Ratio 0.5 White Blood Count 7.96 K/uL Red Blood Count 4.08 M/uL Hemoglobin 12.6 g/dL Hematocrit 35.7 % Mean Corpuscular Volume 87.5 fL Mean Corpuscular Hemoglobin 30.9 pg Mean Corpuscular Hemoglobin Concent 35.3 g/dl RDW Standard Deviation 44.7 fL RDW Coefficient of Variation 13.8 % Platelet Count 269 K/uL Mean Platelet Volume 9.6 fL Sodium Level 130 mmol/L Potassium Level 4.2 mmol/L Chloride Level 96 mmol/L Carbon Dioxide Level 25 mmol/L Anion Gap 9.0 mmol/L Blood Urea Nitrogen 38 mg/dl Creatinine 3.10 mg/dl Est Creatinine Clear Calc Drug Dose 25.6 ml/min Estimated GFR () 23.9 Estimated GFR (Non- 20.6 BUN/Creatinine Ratio 12.4 Random Glucose 125 mg/dl Calcium Level 9.3 mg/dl Phosphorus Level 4.6 mg/dl Magnesium Level 1.9 mg/dl Albumin 3.1 gm/dl (Jennifer Aponte ., KEVIN-C) Assessment and Plan 61-year-old male with a history of hypertension, gout and chronic pain who presented to the ED with abdominal pain 3 days after reportedly eating 85 saltine crackers and drinking beer. Last reported BM 2 days ago. States he took 34 Ex-Lax tablets and 17 doses of Miralax without relief. He was also taking significant amounts of naproxen and ibuprofen, and also took left over Percocet from a previous shoulder injury with the pain. He also gave himself a homemade enema of contact lens fluid. He also reports subjective fevers. Pt with low grade fever of 37.7C on arrival as well as tachycardic and hypertensive. Chest/abdomen x-ray showed mild bibasilar atelectasis and probable developing distal small bowel partial obstructive change. CT of abdomen/pelvis showed moderate distention of the proximal cecum to mid transverse colon, likely nonobstructive ileus. Nonobstructive colonic ileus--improving -Admit to med/surg -Continue full liquid diet. Pt tolerating well -Continue Dulcolax 10 mg OR qd prn constipation. Pt states these are helping -Fleet enema scheduled qd -Colace 100 mg PO BID Acute renal failure--improving. Baseline creatinine 1.3 -Creatinine upon arrival 3.3 -Creatinine improved to 3.1 on 02/28 -Nephrology consulted, appreciate recs: Increase amlodipine to 10 mg PO qd. Increase metoprolol succinate to 100 mg PO BID. Avoid further IVF, decrease free water intake to less than 1500 mL. Advised patient to limit alcohol intake and stop indomethacin and naproxen. Okay to continue tramadol or Percocet. -Avoid nephrotoxins, continue to monitor -Renal U/S: bilateral increased renal cortical echogenicity consistent with renal disease. Mild right perinephric edema and mild bladder wall thickening, unchanged from 02/24 CT Hypertensive urgency--ongoing -Increase amlodipine to 10 mg PO qd, increase metoprolol succinate to 100 mg PO BID -Continue clonidine 0.2 mg patch -Start Cardizem ER 240 mg PO qd Hyponatremia--stable -Sodium 126 on arrival -Fluid restriction per nephrology as above -Sodium 130 on 02/28. Asymptomatic. Gout -Hold allopurinol and indomethacin for now DVT prophylaxis -SCDs Code Status -Level I, FULL RESUSCITATION STATUS This chart was completed in part utilizing [employer] Speech Voice Recognition software. Attempts were made to minimize the grammatical errors, random word insertions, pronoun errors and incomplete sentences. Any formal questions or concerns about the content, text or information contained within the body of this dictation should be directly addressed to the provider for clarification. (Jennifer Aponte ., PA-C) I agree with PA assessment and plan and have seen and examined the pt myself Pt resting comfortably in bed States lower abd pain still Distended abdomen No formed BM CR improving Appreciate nephrology recs BP still unstable, cardizem added (Billy Quiñones, Randy.O.)
[2017-02-28] MEDS: SOD PHOSPHATE/SOD BIPHOSPHATE ENEMA 132 ML BTL PR ONE ×2 (10:15→10:37)
[2017-02-28] MEDS: PANTOprazole INJ 40 MG in SYRINGE 0 ML IV SCH (10:37)
[2017-02-28 11:00] VITALS: BP 166/90
--- NOTE | 2017-02-28 13:24 | Nephrology Progress Note ---
Nephrology Progress Note Date of Service Feb 28, 2017. Chief Complaint BLAKE, hyponatremia Subjective No acute events overnight. Mr. Montalvo states that he is voiding his urine without difficulty. He remains constipated. Minimal improvement with phosphate enema. He is hungry. He denies shortness of breath. Overall, he feels well. Abdominal pain improved. Review of Systems A complete review of systems was performed. Pertinent positives are noted above. All other systems are negative. Vital Signs Last 8 Hrs Date Time Temp Pulse Resp B/P Pulse Ox O2 Delivery O2 Flow Rate FiO2 02/28/17 08:00 96 Room Air 02/28/17 07:12 36.8 73 18 189/104 96 I & O 24-Hour Column 02/28/17 08:00 Intake Total 800 ml Output Total 200 ml Balance 600 ml Last Recorded Weight Weight (Kilograms): 85.300 Physical Exam General Appearance: no apparent distress, + obese Head: normocephalic, atraumatic Eyes: normal inspection, sclerae normal ENT: normal ENT inspection, pharynx normal Neck: supple, no JVD Respiratory/Chest: lungs clear, + decreased breath sounds, + rales (at right base) Cardiovascular: regular rate, rhythm, no gallop, no murmur Abdomen/GI: + distended, + pertinent finding (tympanic, mild tenderness in left lower quadrant) Extremities/Musculoskelatal: normal inspection, + pedal edema Neurologic/Psych: alert, oriented x 3 Family History Patient reports no known family medical history. Social History Smokeless Tobacco Use: No Alcohol Use: socially Drug Use: none Marital Status: single Laboratory Results Past 24 Hours 02/28/17 06:39 02/28/17 06:39 Test 02/28/17 06:39 Red Blood Count 4.08 M/uL (4.7-6.1) Mean Corpuscular Volume 87.5 fL (80-100) Mean Corpuscular Hemoglobin 30.9 pg (25-34) Mean Corpuscular Hemoglobin Concent 35.3 g/dl (32-36) RDW Standard Deviation 44.7 fL (36.4-46.3) RDW Coefficient of Variation 13.8 % (11.5-14.5) Mean Platelet Volume 9.6 fL (7.4-10.4) Anion Gap 9.0 mmol/L (3-11) Est Creatinine Clear Calc Drug Dose 25.6 ml/min Estimated GFR () 23.9 Estimated GFR (Non- 20.6 BUN/Creatinine Ratio 12.4 (10-20) Calcium Level 9.3 mg/dl (8.5-10.1) Phosphorus Level 4.6 mg/dl (2.5-4.9) Magnesium Level 1.9 mg/dl (1.8-2.4) Albumin 3.1 gm/dl (3.4-5.0) Allergies Coded Allergies: Aspirin (Verified Adverse Reaction, Severe, GI SYMPTOMS, 02/24/17) BLOOD IN STOOL (REGULAR STRENGTH ASPIRIN) Methadone (Verified Adverse Reaction, Severe, VOMITING, 02/24/17) Medications Current Inpatient Medications Medications (Trade) Dose Ordered Sig/Romana Route Start Time Stop Time Status Last Admin Dose Admin Ioversol (Optiray 320) 100 ml UD PRN IV 02/24/17 21:45 02/28/17 21:44 Acetaminophen (Tylenol Tab) 650 mg Q4H PRN PO 02/25/17 00:45 03/27/17 00:44 Zolpidem Tartrate (Ambien Tab) 5 mg HSZ PRN PO 02/25/17 00:45 03/27/17 00:44 Tramadol HCl (Ultram Tab) 50 mg TID PRN PO 02/25/17 00:45 03/27/17 00:44 02/25/17 01:31 50 MG Tizanidine HCl (Zanaflex Tab) 2 mg TID PRN PO 02/25/17 00:45 03/27/17 00:44 Ondansetron HCl (Zofran Inj) 4 mg Q6H PRN IV 02/25/17 00:45 03/27/17 00:44 Diphenhydramine HCl 25 mg 25 mg Q4H PRN IV 02/25/17 00:45 03/27/17 00:44 Pantoprazole Sodium/Syringe (Protonix Inj/ Syringe) 10 ml @ 5 mls/min DAILY@11 IV 02/25/17 11:00 03/27/17 10:59 02/28/17 10:37 5 MLS/MIN Bisacodyl (Dulcolax Supp) 10 mg DAILY PRN MD 02/25/17 00:45 03/27/17 00:44 02/27/17 16:36 10 MG Ipratropium [place] (Atrovent 0.02% 0.5MG/2.5ML Neb) 0.5 mg Q6R INH 02/25/17 03:00 03/27/17 02:59 Levalbuterol (Xopenex 1.25MG/ 0.5ML Neb) 1.25 mg Q6R INH 02/25/17 03:00 03/27/17 02:59 Ipratropium [place] (Atrovent 0.02% 0.5MG/2.5ML Neb) 0.5 mg Q2H PRN INH 02/25/17 01:15 03/27/17 01:14 Levalbuterol (Xopenex 1.25MG/ 0.5ML Neb) 1.25 mg Q2H PRN INH 02/25/17 01:15 03/27/17 01:14 Oxycodone HCl (Roxicodone Immediate Rel Tab) 10 mg Q4H PRN PO 02/25/17 02:00 03/11/17 01:59 02/28/17 07:28 10 MG Oxycodone HCl (Roxicodone Immediate Rel Tab) 5 mg Q4H PRN PO 02/25/17 02:00 03/11/17 01:59 Allopurinol (Zyloprim Tab) 50 mg DAILY PRN PO 02/25/17 11:00 03/27/17 10:59 Future Hold Indomethacin (Indocin Cap) 25 mg BID PRN PO 02/25/17 11:00 03/27/17 10:59 Future Hold Lisinopril (Zestril Tab) 40 mg QAM PO 02/26/17 09:00 03/28/17 08:59 Future Hold Hydralazine HCl (HydrALAZINE INJ) 10 mg Q6H PRN IV. 02/25/17 11:15 03/27/17 11:14 Future Hold 02/25/17 15:29 10 MG Miscellaneous Information (Check Clonidine Patch Placement) 1 ea QS N/A 02/25/17 16:00 03/27/17 15:59 02/28/17 07:30 1 EA Hydralazine HCl (Apresoline Tab) 25 mg TID PO 02/25/17 21:00 03/27/17 20:59 02/28/17 07:22 25 MG Multivitamins (Multivitamin Tab) 1 tab QAM PO 02/26/17 09:00 03/28/17 08:59 02/28/17 07:22 1 TAB Docusate Sodium (coLACE CAP) 100 mg BID PO 02/26/17 20:00 03/28/17 20:59 02/28/17 07:22 100 MG Sodium Biphosphate/ Sodium Phosphate (Fleet Enema) 132 ml DAILY PRN MD 02/26/17 14:00 03/28/17 13:59 Amlodipine Besylate (Norvasc Tab) 10 mg QAM PO 02/27/17 08:00 03/29/17 07:59 02/28/17 07:22 10 MG Metoprolol Succinate (Toprol Xl Tab) 100 mg BID PO 02/27/17 08:00 03/29/17 07:59 02/28/17 07:23 100 MG Clonidine HCl (Ksldmjkd-Qra-3 0.2mg/24hr Patch) 1 patch Q7D@1800 TD 02/27/17 18:00 03/29/17 17:59 02/27/17 20:27 1 PATCH Miscellaneous (Remove Clonidine Patch) 1 ea Q7D@1759 N/A 02/27/17 17:59 03/29/17 17:58 02/27/17 20:27 1 EA Diltiazem HCl (Cardizem Cd Cap) 240 mg QAM PO 02/28/17 08:00 03/30/17 07:59 02/28/17 08:58 240 MG Sodium Biphosphate/ Sodium Phosphate (Fleet Enema) 132 ml DAILY MD 03/01/17 08:00 03/31/17 07:59 Impression (1) Acute kidney injury (2) Hyponatremia (3) Hypertension (4) Partial small bowel obstruction Mr. Mitchell is a 61-year-old male hypertension, chronic back pain and alcohol abuse. He has acute renal insufficiency and accelerated hypertension. Blood pressure at home treated with lisinopril. Mr. Mitchell has not regularly had his blood pressure monitored and has not had routine follow up with any PCP. He notes significant NSAID use on a regular basis. He has been using naproxen and indomethacin chronically. Also has been on PPI. Was on lisinopril 40 milligram p.o. daily for hypertension which is on hold since admission. He presented with lower abdominal pain secondary to ileus with possibly narcotic medication use. CT abdomen pelvis on admission showed partial SBO. Diet is slowly being advanced. There is no prior history of chronic kidney disease reported, last creatinine was 1.3 in January 2016. On admission, creatinine was 3.4. Urinalysis initially was positive for low grade proteinuria and microscopic hematuria, repeat UA this morning was negative for proteinuria or hematuria. Acute kidney injury appears to be hemodynamically mediated with concomitant use of CARLOS-inhibitor and NSAIDs. He is non oliguric. Hyponatremia with low urine osmolality. This has been attributed to increased free water intake and excessive alcohol intake with decrease free water clearance. Serum sodium had initially improved with NSS. Unfortunately sodium slightly lower this morning in the setting of accelerated hypertension. Clonidine, amlodipine, metoprolol tartrate, hydralazine and diltiazem have all been added since admission for blood pressure control. Last drink was the day prior to admission. Recommendations -- Avoid any additional phosphate enemas in the setting of BLAKE -- Re-enforce fluid restriction of 1.5 L/d -- Continue clonidine 0.2 mg patch -- Continue amlodipine 10 mg daily -- Consider increasing metoprolol to 150 mg twice daily -- Increase hydralazine as needed -- Monitor for response to diltiazem (added this morning) -- Repeat urine osmolality with repeat metabolic profile this afternoon -- Consider thiamine and folate replacement -- Monitor for additional evidence of alcohol withdrawal and provided benzodiazepines PRN
[2017-02-28 16:41] VITALS: BP 144/81; PULSE 69; TEMP 36.6; O2SAT 95
[2017-02-28 19:44] LABS: BUN/CREATININE RATIO 12.9 (10-20); CALCIUM 9.3 mg/dl (8.5-10.1); POTASSIUM 4.3 mmol/L (3.5-5.1)
[2017-02-28 23:37] VITALS: BP 134/82; PULSE 65; TEMP 36.6; O2SAT 96
[2017-03-01] MEDS: CHECK CLONIDINE PATCH PLACEMENT SCH ×4 (00:02→23:51)
[2017-03-01] MEDS: IPRATROPIUM BROMIDE NEB SOLN 0.02% 2.5 ML VIAL INH SCH ×4 (01:38→20:00)
[2017-03-01] MEDS: LEVALBUTEROL 1.25MG/0.5ML NEB INH SCH ×4 (01:38→20:00)
[2017-03-01] MEDS: OXYCODONE HCL IR 5 MG TAB (IMMEDIATE RELEASE) PO PRN ×2 (03:15→18:38)
[2017-03-01 05:49] LABS: HEMATOCRIT 36.6 % (42-52); MEAN CELL VOLUME 85.5 fL (80-100); MEAN CORPUSCULAR HEMOGLOBIN 29.9 pg (25-34); MEAN PLATELET VOLUME 9.4 fL (7.4-10.4); PLATELET COUNT 288 K/uL (130-400); RED BLOOD COUNT 4.28 M/uL (4.7-6.1); WHITE BLOOD COUNT 8.84 K/uL (4.8-10.8)
[2017-03-01 06:15] LABS: BUN/CREATININE RATIO 12.8 (10-20); CALCIUM 9.3 mg/dl (8.5-10.1); CREATININE 2.9 mg/dl (0.60-1.40); POTASSIUM 4.3 mmol/L (3.5-5.1)
[2017-03-01 07:26] VITALS: BP 152/83; PULSE 68; TEMP 36.6; O2SAT 96
[2017-03-01] MEDS ORDERED: SOD PHOSPHATE/SOD BIPHOSPHATE ENEMA 132 ML BTL PR SCH (08:00)
[2017-03-01] MEDS: METOPROLOL SUCC 50MG EXT REL TAB PO SCH ×2 (09:22→19:38)
[2017-03-01] MEDS: AMLODIPINE BESYLATE 5 MG TAB PO SCH (09:22)
[2017-03-01] MEDS: POLYETHYLENE (MIRALAX) 17 GM PACK PO SCH (09:23)
[2017-03-01] MEDS: MULTIVITAMIN TAB PO SCH (09:23)
[2017-03-01] MEDS: DOCUSATE SODIUM 100 MG CAP PO SCH ×2 (09:23→19:37)
[2017-03-01] MEDS: THIAMINE HCL 100 MG TAB PO SCH (09:23)
[2017-03-01] MEDS: DILTIAZEM HCL 240 MG CAPCR PO SCH (09:24)
--- NOTE | 2017-03-01 10:57 | Hospitalist Progress Note ---
Hospitalist Progress Note Date of Service Mar 01, 2017. (Jennifer Aponte ., PA-C) Subjective Pt evaluation today including: conversation w/ patient, physical exam, chart review, lab review, review of inpatient medication list Pain: 8/10 RUQ pain PO Intake: Tolerating full liquid diet Voiding: no voiding problems Patient reports feeling well overall. He complains of a 8/10 sharp pain in his RUQ which has remained unchanged. He continues to have small liquidy stools. The patient denies fevers, chills, sweats, chest pain, palpitations, claudication, cough, wheezing, shortness of breath, nausea, vomiting, dysuria, hematuria, urinary retention, paralysis, weakness, numbness and tingling. Additional Comments: See HPI for pertinent positives and negatives. All other systems reviewed and negative. (Jennifer Aponte ., PA-C) Objective Vital Signs Date Time Temp Pulse Resp B/P Pulse Ox O2 Delivery O2 Flow Rate FiO2 03/01/17 07:26 36.6 68 18 152/83 96 Room Air 02/28/17 23:40 Room Air 02/28/17 23:37 36.6 65 18 134/82 96 Room Air 02/28/17 16:41 36.6 69 18 144/81 95 Room Air 02/28/17 16:10 Room Air 02/28/17 11:00 166/90 (Jennifer Aponte ., PA-C) Physical Exam General Appearance: WD/WN, no apparent distress, + obese Eyes: normal inspection, PERRL, EOMI ENT: normal ENT inspection, hearing grossly normal, pharynx normal Neck: supple, no JVD, trachea midline Respiratory/Chest: lungs clear, normal breath sounds, no respiratory distress Cardiovascular: regular rate, rhythm, no gallop, no murmur Abdomen: normal bowel sounds, + distended (improved from yesterday, softer), + tenderness (RUQ TTP) Extremities: non-tender, normal inspection, no pedal edema Neurologic/Psychiatric: alert, normal mood/affect, oriented x 3 Skin: normal color, warm/dry, no rash (Jennifer Aponte ., PA-C) Laboratory Results Last 24 Hours Test 02/28/17 19:13 03/01/17 00:00 03/01/17 05:19 4/9/17 09:18 Sodium Level 134 mmol/L 133 mmol/L Potassium Level 4.3 mmol/L 4.3 mmol/L Chloride Level 97 mmol/L 97 mmol/L Carbon Dioxide Level 25 mmol/L 26 mmol/L Anion Gap 12.0 mmol/L 10.0 mmol/L Blood Urea Nitrogen 39 mg/dl 37 mg/dl Creatinine 3.00 mg/dl 2.90 mg/dl Est Creatinine Clear Calc Drug Dose 26.5 ml/min 27.4 ml/min Estimated GFR () 24.8 25.9 Estimated GFR (Non- 21.4 22.3 BUN/Creatinine Ratio 12.9 12.8 Random Glucose 118 mg/dl 118 mg/dl Calcium Level 9.3 mg/dl 9.3 mg/dl Phosphorus Level 5.0 mg/dl Albumin 3.2 gm/dl Urine Osmolality 314 mOms/kg White Blood Count 8.84 K/uL Red Blood Count 4.28 M/uL Hemoglobin 12.8 g/dL Hematocrit 36.6 % Mean Corpuscular Volume 85.5 fL Mean Corpuscular Hemoglobin 29.9 pg Mean Corpuscular Hemoglobin Concent 35.0 g/dl RDW Standard Deviation 42.4 fL RDW Coefficient of Variation 13.6 % Platelet Count 288 K/uL Mean Platelet Volume 9.4 fL Magnesium Level 2.0 mg/dl (Jennifer Apnote ., UDAYC) Assessment and Plan 61-year-old male with a history of hypertension, gout and chronic pain who presented to the ED with abdominal pain 3 days after reportedly eating 85 saltine crackers and drinking beer. Last reported BM 2 days ago. States he took 34 Ex-Lax tablets and 17 doses of Miralax without relief. He was also taking significant amounts of naproxen and ibuprofen, and also took left over Percocet from a previous shoulder injury with the pain. He also gave himself a homemade enema of contact lens fluid. He also reports subjective fevers. Pt with low grade fever of 37.7C on arrival as well as tachycardic and hypertensive. Chest/abdomen x-ray showed mild bibasilar atelectasis and probable developing distal small bowel partial obstructive change. CT of abdomen/pelvis showed moderate distention of the proximal cecum to mid transverse colon, likely nonobstructive ileus. Nonobstructive colonic ileus--improving -Admit to med/surg -Continue full liquid diet. Pt tolerating well -Continue Dulcolax 10 mg PA qd prn constipation. Pt states these are helping -D/C fleet enemas as phosphorus is elevated at 5.0 -Colace 100 mg PO BID -Miralax scheduled qd Acute renal failure--improving. Baseline creatinine 1.3 -Creatinine upon arrival 3.3 -Creatinine improved to 3.1 on 02/28 -Creatinine continues to improve to 2.9 on 03/01 -Nephrology consulted, appreciate recs: avoid further phosphorus enemas due to BLAKE. Continue current fluid restriction. Consider increasing metoprolol to 150 mg PO BID and increasing hydralazine as needed. Consider thiamine and folate replacement. -Thiamine 100 mg PO qd and folic acid 1 mg PO qd ordered by nephro -Folate level pending -Avoid nephrotoxins, continue to monitor -Renal U/S: bilateral increased renal cortical echogenicity consistent with renal disease. Mild right perinephric edema and mild bladder wall thickening, unchanged from 02/24 CT Hypertensive urgency--improving -Increase amlodipine to 10 mg PO qd, increase metoprolol succinate to 100 mg PO BID -Continue clonidine 0.2 mg patch -Cardizem ER 240 mg PO qd -BP improving with SBP now 130s-150s Hyponatremia--improving -Sodium 126 on arrival -Fluid restriction per nephrology as above -Sodium 133 on 03/01 -Urine osmolality still low at 314, but improved from 191 Gout -Hold allopurinol and indomethacin for now DVT prophylaxis -SCDs Code Status -Level I, FULL RESUSCITATION STATUS This chart was completed in part utilizing [employer] Speech Voice Recognition software. Attempts were made to minimize the grammatical errors, random word insertions, pronoun errors and incomplete sentences. Any formal questions or concerns about the content, text or information contained within the body of this dictation should be directly addressed to the provider for clarification. (Jennifer Aponte ., PA-C) I agree with PA assessment and plan and have seen and examined pt myself Persistent abd pain Reviewed labs Abd distended and tender periumbilical region TOlerating liquid diet Miralax added BP better controlled Resting comfortably in bed (Billy Quiñones D.ONoa)
[2017-03-01] MEDS: PANTOprazole INJ 40 MG in SYRINGE 0 ML IV SCH (11:06)
--- NOTE | 2017-03-01 12:44 | Nephrology Progress Note ---
Nephrology Progress Note Date of Service Mar 01, 2017. Chief Complaint BLAKE, hyponatremia Subjective No acute events overnight. Abdominal discomfort persists. Mr. Mitchell states that he has not been able to have an appropriate bowel movement. He attributes this to his liquid diet. Overall, he feels better. He denies shortness of breath. He has no urinary complaints. He denies any chest pain or palpitations. Review of Systems A complete review of systems was performed. Pertinent positives are noted above. All other systems are negative. Vital Signs Last 8 Hrs Date Time Temp Pulse Resp B/P Pulse Ox O2 Delivery O2 Flow Rate FiO2 03/01/17 09:00 Room Air 03/01/17 07:26 36.6 68 18 152/83 96 Room Air I & O 24-Hour Column 03/01/17 08:00 Intake Total 640 ml Output Total 700 ml Balance -60 ml Last Recorded Weight Weight (Kilograms): 85.300 Physical Exam General Appearance: WD/WN, no apparent distress Head: normocephalic, atraumatic Eyes: normal inspection, sclerae normal ENT: normal ENT inspection, pharynx normal Neck: supple, no JVD Respiratory/Chest: lungs clear, no respiratory distress, no accessory muscle use Cardiovascular: regular rate, rhythm, no gallop Abdomen/GI: soft, + tenderness, + distended Extremities/Musculoskelatal: normal inspection, no pedal edema Neurologic/Psych: alert, oriented x 3 Family History Patient reports no known family medical history. Social History Smokeless Tobacco Use: No Alcohol Use: socially Drug Use: none Marital Status: single Laboratory Results Past 24 Hours 03/01/17 05:19 02/28/17 19:13 03/01/17 05:19 Test 02/28/17 19:13 03/01/17 00:00 03/01/17 05:19 03/01/17 09:18 Anion Gap 12.0 mmol/L (3-11) 10.0 mmol/L (3-11) Est Creatinine Clear Calc Drug Dose 26.5 ml/min 27.4 ml/min Estimated GFR () 24.8 25.9 Estimated GFR (Non- 21.4 22.3 BUN/Creatinine Ratio 12.9 (10-20) 12.8 (10-20) Calcium Level 9.3 mg/dl (8.5-10.1) 9.3 mg/dl (8.5-10.1) Phosphorus Level 5.0 mg/dl (2.5-4.9) Albumin 3.2 gm/dl (3.4-5.0) Urine Osmolality 314 mOms/kg (500-800) Red Blood Count 4.28 M/uL (4.7-6.1) Mean Corpuscular Volume 85.5 fL (80-100) Mean Corpuscular Hemoglobin 29.9 pg (25-34) Mean Corpuscular Hemoglobin Concent 35.0 g/dl (32-36) RDW Standard Deviation 42.4 fL (36.4-46.3) RDW Coefficient of Variation 13.6 % (11.5-14.5) Mean Platelet Volume 9.4 fL (7.4-10.4) Magnesium Level 2.0 mg/dl (1.8-2.4) Folate > 24.00 ng/mL (>5.38) Allergies Coded Allergies: Aspirin (Verified Adverse Reaction, Severe, GI SYMPTOMS, 02/24/17) BLOOD IN STOOL (REGULAR STRENGTH ASPIRIN) Methadone (Verified Adverse Reaction, Severe, VOMITING, 02/24/17) Medications Current Inpatient Medications Medications (Trade) Dose Ordered Sig/Romana Route Start Time Stop Time Status Last Admin Dose Admin Acetaminophen (Tylenol Tab) 650 mg Q4H PRN PO 02/25/17 00:45 03/27/17 00:44 Zolpidem Tartrate (Ambien Tab) 5 mg HSZ PRN PO 02/25/17 00:45 03/27/17 00:44 Tramadol HCl (Ultram Tab) 50 mg TID PRN PO 02/25/17 00:45 03/27/17 00:44 02/25/17 01:31 50 MG Tizanidine HCl (Zanaflex Tab) 2 mg TID PRN PO 02/25/17 00:45 03/27/17 00:44 Ondansetron HCl (Zofran Inj) 4 mg Q6H PRN IV 02/25/17 00:45 03/27/17 00:44 Diphenhydramine HCl 25 mg 25 mg Q4H PRN IV 02/25/17 00:45 03/27/17 00:44 Pantoprazole Sodium/Syringe (Protonix Inj/ Syringe) 10 ml @ 5 mls/min DAILY@11 IV 02/25/17 11:00 03/27/17 10:59 03/01/17 11:06 5 MLS/MIN Bisacodyl (Dulcolax Supp) 10 mg DAILY PRN FL 02/25/17 00:45 03/27/17 00:44 02/27/17 16:36 10 MG Ipratropium Crane (Atrovent 0.02% 0.5MG/2.5ML Neb) 0.5 mg Q6R INH 02/25/17 03:00 03/27/17 02:59 Levalbuterol (Xopenex 1.25MG/ 0.5ML Neb) 1.25 mg Q6R INH 02/25/17 03:00 03/27/17 02:59 Ipratropium Crane (Atrovent 0.02% 0.5MG/2.5ML Neb) 0.5 mg Q2H PRN INH 02/25/17 01:15 03/27/17 01:14 Levalbuterol (Xopenex 1.25MG/ 0.5ML Neb) 1.25 mg Q2H PRN INH 02/25/17 01:15 03/27/17 01:14 Oxycodone HCl (Roxicodone Immediate Rel Tab) 10 mg Q4H PRN PO 02/25/17 02:00 03/11/17 01:59 03/01/17 03:15 10 MG Oxycodone HCl (Roxicodone Immediate Rel Tab) 5 mg Q4H PRN PO 02/25/17 02:00 03/11/17 01:59 02/28/17 13:59 5 MG Allopurinol (Zyloprim Tab) 50 mg DAILY PRN PO 02/25/17 11:00 03/27/17 10:59 Future Hold Indomethacin (Indocin Cap) 25 mg BID PRN PO 02/25/17 11:00 03/27/17 10:59 Future Hold Lisinopril (Zestril Tab) 40 mg QAM PO 02/26/17 09:00 03/28/17 08:59 Future Hold Hydralazine HCl (HydrALAZINE INJ) 10 mg Q6H PRN IV. 02/25/17 11:15 03/27/17 11:14 Future Hold 02/25/17 15:29 10 MG Miscellaneous Information (Check Clonidine Patch Placement) 1 ea QS N/A 02/25/17 16:00 03/27/17 15:59 03/01/17 09:24 1 EA Hydralazine HCl (Apresoline Tab) 25 mg TID PO 02/25/17 21:00 03/27/17 20:59 03/01/17 09:22 25 MG Multivitamins (Multivitamin Tab) 1 tab QAM PO 02/26/17 09:00 03/28/17 08:59 03/01/17 09:23 1 TAB Docusate Sodium (coLACE CAP) 100 mg BID PO 02/26/17 20:00 03/28/17 20:59 03/01/17 09:23 100 MG Amlodipine Besylate (Norvasc Tab) 10 mg QAM PO 02/27/17 08:00 03/29/17 07:59 03/01/17 09:22 10 MG Metoprolol Succinate (Toprol Xl Tab) 100 mg BID PO 02/27/17 08:00 03/29/17 07:59 03/01/17 09:22 100 MG Clonidine HCl (Hjntewqw-Nwi-8 0.2mg/24hr Patch) 1 patch Q7D@1800 TD 02/27/17 18:00 03/29/17 17:59 02/27/17 20:27 1 PATCH Miscellaneous (Remove Clonidine Patch) 1 ea Q7D@1759 N/A 02/27/17 17:59 03/29/17 17:58 02/27/17 20:27 1 EA Diltiazem HCl (Cardizem Cd Cap) 240 mg QAM PO 02/28/17 08:00 03/30/17 07:59 03/01/17 09:24 240 MG Thiamine HCl (Vitamin B-1 Tab) 100 mg QAM PO 03/01/17 08:00 03/31/17 07:59 03/01/17 09:23 100 MG Folic Acid (Folvite Tab) 1 mg QAM PO 03/01/17 08:00 03/31/17 07:59 03/01/17 09:24 1 MG Polyethylene (Miralax Powder Packet) 17 gm DAILY PO 03/01/17 08:00 03/31/17 07:59 03/01/17 09:23 17 GM Impression (1) Acute kidney injury (2) Hyponatremia (3) Hypertension (4) Partial small bowel obstruction Mr. Mitchell is a 61-year-old male hypertension, chronic back pain and alcohol abuse. He has acute renal insufficiency and accelerated hypertension. Blood pressure at home treated with lisinopril. Mr. Mitchell has not regularly had his blood pressure monitored and has not had routine follow up with any PCP. He notes significant NSAID use on a regular basis. He has been using naproxen and indomethacin chronically. Also has been on PPI. Was on lisinopril 40 milligram p.o. daily for hypertension which is on hold since admission. He presented with lower abdominal pain secondary to ileus with possibly narcotic medication use. CT abdomen pelvis on admission showed partial SBO. Diet is slowly being advanced. There is no prior history of chronic kidney disease reported, last creatinine was 1.3 in January 2016. On admission, creatinine was 3.4. Urinalysis initially was positive for low grade proteinuria and microscopic hematuria, repeat UA this morning was negative for proteinuria or hematuria. Acute kidney injury appears to be hemodynamically mediated with concomitant use of CARLOS-inhibitor and NSAIDs. He is non oliguric. Hyponatremia with low urine osmolality. This has been attributed to increased free water intake and excessive alcohol intake with decrease free water clearance. Serum sodium had initially improved with NSS. Sodium stable and mildly low this morning. Clonidine, amlodipine, metoprolol tartrate, hydralazine and diltiazem have all been added since admission for blood pressure control. Last drink was the day prior to admission. Recommendations -- Blood pressure and volume status currently appropriate -- Sodium acceptable -- Continue fluid restriction of 1.5 L/d -- Continue clonidine 0.2 mg patch -- Continue amlodipine 10 mg daily -- Increase hydralazine as needed -- May consider increasing metoprolol to 150 mg twice daily, if needed -- Good response to diltiazem -- Repeat urine osmolality and metabolic profile tomorrow AM if he remains inpatient
[2017-03-01 14:29] VITALS: BP 133/84; PULSE 68
[2017-03-01 16:56] VITALS: BP 157/89; PULSE 70; TEMP 36.6; O2SAT 95
[2017-03-01 23:07] VITALS: BP 113/65; PULSE 66; TEMP 36.7; O2SAT 97
[2017-03-02] MEDS: OXYCODONE HCL IR 5 MG TAB (IMMEDIATE RELEASE) PO PRN ×4 (02:14→23:35)
[2017-03-02] MEDS: LEVALBUTEROL 1.25MG/0.5ML NEB INH SCH ×4 (02:53→19:16)
[2017-03-02] MEDS: IPRATROPIUM BROMIDE NEB SOLN 0.02% 2.5 ML VIAL INH SCH ×4 (02:53→19:16)
[2017-03-02 06:59] LABS: HEMATOCRIT 35.8 % (42-52); MEAN CELL VOLUME 86.3 fL (80-100); MEAN CORPUSCULAR HEMOGLOBIN 29.6 pg (25-34); MEAN CORPUSCULAR HGB CONC 34.4 g/dl (32-36); MEAN PLATELET VOLUME 9.5 fL (7.4-10.4); PLATELET COUNT 301 K/uL (130-400); RED BLOOD COUNT 4.15 M/uL (4.7-6.1); WHITE BLOOD COUNT 9.97 K/uL (4.8-10.8)
[2017-03-02 07:19] VITALS: BP 151/77; PULSE 61; TEMP 36.7; O2SAT 95
[2017-03-02 07:28] LABS: CALCIUM 9.3 mg/dl (8.5-10.1); CREATININE 2.7 mg/dl (0.60-1.40); MAGNESIUM 2.1 mg/dl (1.8-2.4); POTASSIUM 4.8 mmol/L (3.5-5.1)
--- NOTE | 2017-03-02 08:24 | DIAGNOSTIC IMAGING REPORT ---
KUB CLINICAL HISTORY: Nonobstructive colonic ileus. COMPARISON STUDY: CT of the abdomen and pelvis February 24, 2017. FINDINGS: There is a moderate amount of stool within the right colon. Lucency along the wall of the hepatic flexure of the colon could reflect pneumatosis or artifact. Mild small bowel dilatation is noted. IMPRESSION: 1. Possible right colon pneumatosis. CT of the abdomen and pelvis is recommended. 2. Mild dilatation of small and large bowel which favors an ileus. 3. Moderate amount of stool within the right colon. Electronically signed by: Brady Benavidez M.D. 03/02/2017 8:22 AM Dictated Date/Time: 03/02/2017 7:57 AM
[2017-03-02] MEDS: DOCUSATE SODIUM 100 MG CAP PO SCH ×2 (09:42→20:42)
[2017-03-02] MEDS: AMLODIPINE BESYLATE 5 MG TAB PO SCH (09:42)
[2017-03-02] MEDS: MULTIVITAMIN TAB PO SCH (09:42)
[2017-03-02] MEDS: POLYETHYLENE (MIRALAX) 17 GM PACK PO SCH (09:42)
[2017-03-02] MEDS: DILTIAZEM HCL 240 MG CAPCR PO SCH (09:42)
[2017-03-02] MEDS: METOPROLOL SUCC 50MG EXT REL TAB PO SCH ×2 (09:43→20:43)
[2017-03-02] MEDS: CHECK CLONIDINE PATCH PLACEMENT SCH ×3 (09:43→23:36)
[2017-03-02] MEDS: THIAMINE HCL 100 MG TAB PO SCH (09:43)
--- NOTE | 2017-03-02 10:57 | History and Physical ---
History & Physical Date & Time of Service: Mar 02, 2017 at 10:48 Chief Complaint: Acute Renal Failure, Colonic Inertia Primary Care Physician: No Doctor, Assigned History of Present Illness Source: patient The patient is a 61-year-old male who presents to the emergency department with complaint of severe lower abdominal/suprapubic pain that he reports began in the morning after eating 85 saltine crackers and drank beer the previous evening 3 days ago. His last bowel movement was 2 days ago. He reports having taken 34 Ex-Lax tablets 17 doses of MiraLAX without any relief. He was also taking significant amounts of naproxen and ibuprofen, and also took left over Percocet from a previous shoulder injury with the pain. He also gave himself a homemade enema of contact lens fluid. He also reports that he had a fever, but did not take his temperature. I was asked to consult this pt for KUB-. Possible right colon pneumatosis, pt has been some right abdominal pain for 6 weeks, pt denies nausea, no vomiting, no fever, last BM 3 days ago, pt had colonoscopy done 10 yeras ago, which was normal. Past Medical/Surgical History Medical Problems: (1) CAD (coronary artery disease) Status: Chronic (2) Hypertension Status: Chronic Family History Patient reports no known family medical history. Social History Smoking Status: Never Smoker Smokeless Tobacco Use: No Alcohol Use: socially Drug Use: none Marital Status: single Multi-Drug Resistant Organisms History of MDRO: No Allergies Coded Allergies: Aspirin (Verified Adverse Reaction, Severe, GI SYMPTOMS, 02/24/17) BLOOD IN STOOL (REGULAR STRENGTH ASPIRIN) Methadone (Verified Adverse Reaction, Severe, VOMITING, 02/24/17) Home Medications Scheduled Lisinopril (Zestril), 40 MG PO QAM Naproxen (Naproxen), 500 MG PO DIRECTED Scheduled PRN Allopurinol (Zyloprim), 0.5 TAB PO DAILY PRN for GOUT Indomethacin (Indocin), 25 MG PO BID PRN for Pain Tizanidine (Zanaflex), 2 TAB PO HS PRN for Pain Tramadol Hcl (Ultram), 100 TABS PO TID PRN for Pain Review of Systems Constitutional: No chills, No fatigue, No fever, No problem reported, No sweats , No weakness, No weight loss Eyes: No diplopia, No discharge, No eye pain, No problem reported, No redness, No worsening of vision ENT: No dental problems, No hearing loss, No nasal symptoms, No problem reported, No sore throat, No tinnitus, No trouble swallowing, No unusual epistaxis Respiratory: No cough, No dyspnea at rest, No dyspnea on exertion, No hemoptysis, No problem reported, No shortness of breath, No sputum, No wheezing Cardiovascular: No PND, No chest pain, No claudication, No edema, No orthopnea , No palpitations, No problem reported Abdomen: + pain Genitourinary - Male: No dysuria, No hematuria, No impotence, No lesions, No penile discharge, No problem reported, No urinary frequency, No urinary hesitancy, No urinary incontinence, No urinary retention, No urinary urgency Neurologic: No balance problems, No memory loss, No numbness/tingling, No paralysis, No problem reported, No vertigo, No weakness Psychiatric: No anhedonism, No anxiety, No depression symptoms, No insomnia, No problem reported, No substance abuse Integumentary: No bleeding, No color change, No itch, No new/changing skin lesions, No problem reported, No rash Physical Exam Vital Signs Date Time Temp Pulse Resp B/P Pulse Ox O2 Delivery O2 Flow Rate FiO2 03/02/17 07:19 36.7 61 18 151/77 95 Room Air 03/02/17 00:20 Room Air 03/01/17 23:07 36.7 66 17 113/65 97 Room Air 03/01/17 16:56 36.6 70 18 157/89 95 Room Air 03/01/17 16:20 Room Air 03/01/17 14:29 68 133/84 General Appearance: WD/WN, no apparent distress Head: normocephalic Eyes: normal inspection ENT: normal ENT inspection Neck: supple, no JVD Respiratory/Chest: chest non-tender, lungs clear, normal breath sounds Cardiovascular: regular rate, rhythm, no JVD Abdomen/GI: soft, no organomegaly, no pulsatile mass, normal rectal exam, occult blood negative, + tenderness Back: normal inspection Extremities/Musculoskelatal: normal inspection, no calf tenderness Neurologic/Psych: clutch specialist II-XII nml as tested, no motor/sensory deficits, alert, normal mood/affect Skin: normal color, warm/dry The patient is awake, well-developed and adequately nourished, alert and oriented 3, normocephalic and atraumatic, lying in bed and in no acute distress. HEENT--PERRL, EOMI, mucous membranes and oropharynx dry. Neck--supple, no JVD or bruits, thyroid normal, trachea midline, no adenopathy. Heart--normal S1 and S2, no extra beats, no murmurs, rubs or gallops. Lungs--clear bilaterally, no respiratory distress, no accessory muscle use. Abdomen--normal bowel sounds and soft, tender right lateral abdomen, nondistended, and obese. Extremities--no cyanosis, clubbing or edema. There are good distal pulses b/l. Dermatologic--normal skin turgor, normal color, warm and dry, no abnormal lymph nodes, no rash. Neurologic--cranial nerves II through XII grossly intact, motor and sensory examination normal. Rheumatologic--normal range of motion, nontender, muscles and joints. Psychiatric--normal affect. Diagnostics Laboratory Results Results Past 24 Hours Test 03/01/17 16:10 03/02/17 06:25 Range/Units Urine Osmolality 321 500-800 mOms/kg White Blood Count 9.97 4.8-10.8 K/uL Red Blood Count 4.15 4.7-6.1 M/uL Hemoglobin 12.3 14.0-18.0 g/dL Hematocrit 35.8 42-52 % Mean Corpuscular Volume 86.3 80-100 fL Mean Corpuscular Hemoglobin 29.6 25-34 pg Mean Corpuscular Hemoglobin Concent 34.4 32-36 g/dl RDW Standard Deviation 43.0 36.4-46.3 fL RDW Coefficient of Variation 13.6 11.5-14.5 % Platelet Count 301 130-400 K/uL Mean Platelet Volume 9.5 7.4-10.4 fL Sodium Level 133 136-145 mmol/L Potassium Level 4.8 3.5-5.1 mmol/L Chloride Level 97 98-107 mmol/L Carbon Dioxide Level 28 21-32 mmol/L Anion Gap 8.0 3-11 mmol/L Blood Urea Nitrogen 35 7-18 mg/dl Creatinine 2.70 0.60-1.40 mg/dl Est Creatinine Clear Calc Drug Dose 29.4 ml/min Estimated GFR () 28.2 Estimated GFR (Non- 24.3 BUN/Creatinine Ratio 13.0 10-20 Random Glucose 126 70-99 mg/dl Calcium Level 9.3 8.5-10.1 mg/dl Magnesium Level 2.1 1.8-2.4 mg/dl Diagnostic Radiology KUB 03/02/2017-IMPRESSION: 1. Possible right colon pneumatosis. CT of the abdomen and pelvis is recommended. 2. Mild dilatation of small and large bowel which favors an ileus. 3. Moderate amount of stool within the right colon. CT Scan(02/24/2017-IMPRESSION: Moderate distention of the proximal cecum to mid transverse colon. This may simply represent a nonobstructive colonic ileus, although colonoscopy is suggested to exclude an occult partially obstructing lesion. The bowel pattern as well as all remaining components of the study are otherwise unremarkable. note is made of a parenchymal infiltrate combined with a small effusion right lung base. Impression Assessment and Plan IMP, abdominal pain, KUB- possible pnuemotosis I recommend to do CT scan abd + pelvis, check lactic acid, GI consult will F/U, thanks, Advanced Directives Existing Advance Directive: No Existing Living Will: No Existing Power of Ed Educational Aide: No VTE Prophylaxis VTE Risk Assessment Done? Y/N: Yes Risk Level: Low Given or contraindicated: SCD's
[2017-03-02] MEDS: PANTOprazole INJ 40 MG in SYRINGE 0 ML IV SCH (11:29)
--- NOTE | 2017-03-02 12:22 | DIAGNOSTIC IMAGING REPORT ---
CT SCAN OF THE ABDOMEN AND PELVIS WITHOUT IV CONTRAST CLINICAL HISTORY: Generalized abdominal pain. COMPARISON STUDY: Abdominal CT dated 02/24/2017. TECHNIQUE: CT scan of the abdomen and pelvis is performed from the lung bases to the proximal femora. Images are reviewed in the axial, sagittal, and coronal planes. IV contrast was not administered for this examination as per the referring clinician. Note that the examination was performed in significantly suboptimal fashion without IV contrast. Oral contrast was utilized. Automated dose control exposure was utilized. CT DOSE: 567.54 mGy.cm FINDINGS: Lung bases: The heart is normal in size and without pericardial effusion. Mild pericardial thickening is observed. There is a tiny hiatal hernia. There is a trace right pleural effusion. No airspace consolidation is seen typical for pneumonia there is minimal dependent atelectasis is observed. Liver: The unenhanced liver is normal in size, contour, and attenuation. There is no intrahepatic biliary ductal dilatation. Gallbladder: Unremarkable. Spleen: Normal in size and attenuation. Pancreas: Unremarkable. Adrenal glands: Unremarkable. Kidneys: The unenhanced kidneys are normal in size and without hydronephrosis. There are no renal calculi identified. There is no evidence of contour deforming renal mass lesion. Abdominal vasculature: The abdominal aorta is normal in course and caliber noting mild atherosclerotic calcification. Bowel: No bowel obstruction is seen. There is moderate fecal retention in the right colon, which has modestly improved from 02/24/2017. There is wall thickening and irregularity involving the anterior base of the cecum which is located just deep to the ventral abdominal wall. There are small foci of adjacent extraluminal gas, and the appearance is highly concerning for a contained perforation. No definite pneumatosis intestinalis is identified. The appendix is well-visualized and normal. Peritoneum: There is no abdominal ascites. Tiny foci of intraperitoneal free air are identified and discussed above. There is a small fat-containing umbilical hernia. Lymphadenopathy: None. Pelvic viscera: The bladder, prostate, and seminal vesicles are normal as visualized. Skeletal structures: The skeletal structures are osteopenic. There is mild/moderate lumbar sacral spondylosis. Degenerative change is also seen involving the sacroiliac joints and hips. No lytic or blastic lesions are seen. IMPRESSION: 1. Suboptimal examination without IV contrast. 2. There is wall thickening and irregularity identified involving the anterior wall of the cecum. Additionally, there are small foci of adjacent extraluminal gas and the appearance is highly concerning for a contained cecal perforation. Surgical consultation is advised. 3. There is moderate fecal retention in the right colon. This has modestly improved from 02/24/2017. 4. No definite pneumatosis intestinalis is identified in today's examination. No portal venous gas is seen. 5. There is no organized fluid collection to suggest abscess. 6. Trace right pleural effusion. 7. Additional changes as above. Electronically signed by: Jluis Lieberman M.D. 03/02/2017 12:20 PM Dictated Date/Time: 03/02/2017 12:06 PM
--- NOTE | 2017-03-02 12:48 | Nephrology Progress Note ---
Nephrology Progress Note Date of Service Mar 02, 2017. Chief Complaint BLAKE, hyponatremia Subjective No acute events overnight. Mr. Mitchell was seen and evaluated this morning in his hospital room. He was frustrated that he still has not been able to eat but understanding of the concerning findings on KUB. He overall feels well. Abdominal discomfort persists. I discussed the plan of care with Dr. Quiñones this morning. Patient denies headache, chest pain or palpitations. He has not had lightheadedness or dizziness or shortness of breath. Back pain fairly well controlled at this time. Review of Systems A complete review of systems was performed. Pertinent positives are noted above. All other systems are negative. Vital Signs Last 8 Hrs Date Time Temp Pulse Resp B/P Pulse Ox O2 Delivery O2 Flow Rate FiO2 03/02/17 09:30 Room Air 03/02/17 07:19 36.7 61 18 151/77 95 Room Air I & O 24-Hour Column 03/02/17 08:00 Intake Total 800 ml Output Total 1100 ml Balance -300 ml Last Recorded Weight Weight (Kilograms): 85.300 Physical Exam General Appearance: WD/WN, no apparent distress Head: normocephalic, atraumatic Eyes: normal inspection, sclerae normal ENT: normal ENT inspection, pharynx normal Neck: supple, no JVD Respiratory/Chest: lungs clear, no respiratory distress, no accessory muscle use Cardiovascular: regular rate, rhythm, no gallop Abdomen/GI: + tenderness, + distended Extremities/Musculoskelatal: normal inspection, no pedal edema Neurologic/Psych: alert, oriented x 3 Family History Patient reports no known family medical history. Social History Smokeless Tobacco Use: No Alcohol Use: socially Drug Use: none Marital Status: single Laboratory Results Past 24 Hours 03/02/17 06:25 03/02/17 06:25 Test 03/01/17 16:10 03/02/17 06:25 03/02/17 11:40 Urine Osmolality 321 mOms/kg (500-800) Red Blood Count 4.15 M/uL (4.7-6.1) Mean Corpuscular Volume 86.3 fL (80-100) Mean Corpuscular Hemoglobin 29.6 pg (25-34) Mean Corpuscular Hemoglobin Concent 34.4 g/dl (32-36) RDW Standard Deviation 43.0 fL (36.4-46.3) RDW Coefficient of Variation 13.6 % (11.5-14.5) Mean Platelet Volume 9.5 fL (7.4-10.4) Anion Gap 8.0 mmol/L (3-11) Est Creatinine Clear Calc Drug Dose 29.4 ml/min Estimated GFR () 28.2 Estimated GFR (Non- 24.3 BUN/Creatinine Ratio 13.0 (10-20) Calcium Level 9.3 mg/dl (8.5-10.1) Magnesium Level 2.1 mg/dl (1.8-2.4) Lactic Acid Level 0.8 mmol/L (0.4-2.0) Allergies Coded Allergies: Aspirin (Verified Adverse Reaction, Severe, GI SYMPTOMS, 02/24/17) BLOOD IN STOOL (REGULAR STRENGTH ASPIRIN) Methadone (Verified Adverse Reaction, Severe, VOMITING, 02/24/17) Medications Current Inpatient Medications Medications (Trade) Dose Ordered Sig/Romana Route Start Time Stop Time Status Last Admin Dose Admin Acetaminophen (Tylenol Tab) 650 mg Q4H PRN PO 02/25/17 00:45 03/27/17 00:44 Zolpidem Tartrate (Ambien Tab) 5 mg HSZ PRN PO 02/25/17 00:45 03/27/17 00:44 Tramadol HCl (Ultram Tab) 50 mg TID PRN PO 02/25/17 00:45 03/27/17 00:44 02/25/17 01:31 50 MG Tizanidine HCl (Zanaflex Tab) 2 mg TID PRN PO 02/25/17 00:45 03/27/17 00:44 Ondansetron HCl (Zofran Inj) 4 mg Q6H PRN IV 02/25/17 00:45 03/27/17 00:44 Diphenhydramine HCl 25 mg 25 mg Q4H PRN IV 02/25/17 00:45 03/27/17 00:44 Pantoprazole Sodium/Syringe (Protonix Inj/ Syringe) 10 ml @ 5 mls/min DAILY@11 IV 02/25/17 11:00 03/27/17 10:59 03/02/17 11:29 5 MLS/MIN Bisacodyl (Dulcolax Supp) 10 mg DAILY PRN IA 02/25/17 00:45 5/5/17 00:44 02/27/17 16:36 10 MG Ipratropium [place] (Atrovent 0.02% 0.5MG/2.5ML Neb) 0.5 mg Q6R INH 02/25/17 03:00 03/27/17 02:59 Levalbuterol (Xopenex 1.25MG/ 0.5ML Neb) 1.25 mg Q6R INH 02/25/17 03:00 03/27/17 02:59 Ipratropium [place] (Atrovent 0.02% 0.5MG/2.5ML Neb) 0.5 mg Q2H PRN INH 02/25/17 01:15 03/27/17 01:14 Levalbuterol (Xopenex 1.25MG/ 0.5ML Neb) 1.25 mg Q2H PRN INH 02/25/17 01:15 03/27/17 01:14 Oxycodone HCl (Roxicodone Immediate Rel Tab) 10 mg Q4H PRN PO 02/25/17 02:00 03/11/17 01:59 03/01/17 03:15 10 MG Oxycodone HCl (Roxicodone Immediate Rel Tab) 5 mg Q4H PRN PO 02/25/17 02:00 03/11/17 01:59 03/02/17 04:35 5 MG Allopurinol (Zyloprim Tab) 50 mg DAILY PRN PO 02/25/17 11:00 03/27/17 10:59 Future Hold Indomethacin (Indocin Cap) 25 mg BID PRN PO 02/25/17 11:00 03/27/17 10:59 Future Hold Lisinopril (Zestril Tab) 40 mg QAM PO 02/26/17 09:00 03/28/17 08:59 Future Hold Hydralazine HCl (HydrALAZINE INJ) 10 mg Q6H PRN IV. 02/25/17 11:15 03/27/17 11:14 Future Hold 02/25/17 15:29 10 MG Miscellaneous Information (Check Clonidine Patch Placement) 1 ea QS N/A 02/25/17 16:00 03/27/17 15:59 03/02/17 09:43 1 EA Hydralazine HCl (Apresoline Tab) 25 mg TID PO 02/25/17 21:00 03/27/17 20:59 03/01/17 19:37 25 MG Multivitamins (Multivitamin Tab) 1 tab QAM PO 02/26/17 09:00 03/28/17 08:59 03/01/17 09:23 1 TAB Docusate Sodium (coLACE CAP) 100 mg BID PO 02/26/17 20:00 03/28/17 20:59 03/01/17 19:37 100 MG Amlodipine Besylate (Norvasc Tab) 10 mg QAM PO 02/27/17 08:00 03/29/17 07:59 03/01/17 09:22 10 MG Metoprolol Succinate (Toprol Xl Tab) 100 mg BID PO 02/27/17 08:00 03/29/17 07:59 03/01/17 19:38 100 MG Clonidine HCl (Pezmiyvc-Nqv-8 0.2mg/24hr Patch) 1 patch Q7D@1800 TD 02/27/17 18:00 03/29/17 17:59 02/27/17 20:27 1 PATCH Miscellaneous (Remove Clonidine Patch) 1 ea Q7D@1759 N/A 02/27/17 17:59 03/29/17 17:58 02/27/17 20:27 1 EA Diltiazem HCl (Cardizem Cd Cap) 240 mg QAM PO 02/28/17 08:00 03/30/17 07:59 03/01/17 09:24 240 MG Thiamine HCl (Vitamin B-1 Tab) 100 mg QAM PO 03/01/17 08:00 03/31/17 07:59 03/01/17 09:23 100 MG Folic Acid (Folvite Tab) 1 mg QAM PO 03/01/17 08:00 03/31/17 07:59 03/01/17 09:24 1 MG Polyethylene (Miralax Powder Packet) 17 gm DAILY PO 03/01/17 08:00 03/31/17 07:59 03/01/17 09:23 17 GM Impression (1) Acute kidney injury (2) Hyponatremia (3) Hypertension (4) Partial small bowel obstruction Mr. Mitchell is a 61-year-old male hypertension, chronic back pain and alcohol abuse. He has acute renal insufficiency and accelerated hypertension. Blood pressure at home treated with lisinopril. Mr. Mitchell has not regularly had his blood pressure monitored and has not had routine follow up with any PCP. He notes significant NSAID use on a regular basis. He has been using naproxen and indomethacin chronically. Also has been on PPI. Was on lisinopril 40 milligram p.o. daily for hypertension which is on hold since admission. He presented with lower abdominal pain secondary to ileus with possibly narcotic medication use. CT abdomen pelvis on admission showed partial SBO. Could not exclude malignancy. Recent KUB concerning for pneumatosis coli. There is no prior history of chronic kidney disease reported, last creatinine was 1.3 in January 2016. On admission, creatinine was 3.4. Urinalysis initially was positive for low grade proteinuria and microscopic hematuria, repeat UA this morning was negative for proteinuria or hematuria. Acute kidney injury appears to be hemodynamically mediated with concomitant use of CARLOS-inhibitor and NSAIDs. He is non oliguric. Creatinine improving. Hyponatremia with low urine osmolality is also improving. Urine osmolality slowly increasing. This has been attributed to increased free water intake and excessive alcohol intake with decrease free water clearance. Serum sodium had initially improved with NSS. Sodium stable and mildly low this morning. Clonidine, amlodipine, metoprolol tartrate, hydralazine and diltiazem have all been added since admission for blood pressure control. Last drink was the day prior to admission. Recommendations -- Blood pressure and volume status currently appropriate -- Sodium acceptable -- Continue fluid restriction of 1.5 L/d -- Continue clonidine 0.2 mg patch -- Continue amlodipine 10 mg daily -- Continue metoprolol, diltiazem and hydralazine as prescribed -- Avoid iodinated contrast as able at this time -- Repeat urine osmolality and metabolic profile tomorrow AM
--- NOTE | 2017-03-02 14:44 | Hospitalist Progress Note ---
Hospitalist Progress Note Date of Service Mar 02, 2017. (Jennifer Aponte ., PA-C) Subjective Pt evaluation today including: conversation w/ patient, physical exam, chart review, lab review, review of studies, conversation w/ bank consultant (spoke with Dr. Miles of general surgery), review of inpatient medication list Pain: 5/10 sharp pain in RUQ PO Intake: NPO Voiding: no voiding problems Patient reports feeling better. He states his pain is currently 5/10 sharp pain in his right upper quadrant. He attributes the improvement to not eating. The patient denies fevers, chills, sweats, chest pain, palpitations, claudication, cough, wheezing, shortness of breath, nausea, vomiting, dysuria, hematuria, urinary retention, paralysis, weakness, numbness and tingling. Additional Comments: See HPI for pertinent positives and negatives. All other systems reviewed and negative. (Jennifer Aponte ., PA-C) Objective Vital Signs Date Time Temp Pulse Resp B/P Pulse Ox O2 Delivery O2 Flow Rate FiO2 03/02/17 09:30 Room Air 03/02/17 07:19 36.7 61 18 151/77 95 Room Air 03/02/17 00:20 Room Air 03/01/17 23:07 36.7 66 17 113/65 97 Room Air 03/01/17 16:56 36.6 70 18 157/89 95 Room Air 03/01/17 16:20 Room Air (Jennifer Aponte ., PA-C) Physical Exam General Appearance: WD/WN, no apparent distress, + obese Eyes: normal inspection, PERRL, EOMI ENT: normal ENT inspection, hearing grossly normal, pharynx normal Neck: supple, no JVD, trachea midline Respiratory/Chest: lungs clear, normal breath sounds, no respiratory distress Cardiovascular: regular rate, rhythm, no gallop, no murmur Abdomen: normal bowel sounds, + distended, + tenderness (RUQ TTP) Extremities: non-tender, normal inspection, no pedal edema Neurologic/Psychiatric: alert, normal mood/affect, oriented x 3 Skin: normal color, warm/dry, no rash (Jennifer Aponte ., PA-C) Laboratory Results Last 24 Hours Test 03/01/17 16:10 03/02/17 06:25 03/02/17 11:40 Urine Osmolality 321 mOms/kg White Blood Count 9.97 K/uL Red Blood Count 4.15 M/uL Hemoglobin 12.3 g/dL Hematocrit 35.8 % Mean Corpuscular Volume 86.3 fL Mean Corpuscular Hemoglobin 29.6 pg Mean Corpuscular Hemoglobin Concent 34.4 g/dl RDW Standard Deviation 43.0 fL RDW Coefficient of Variation 13.6 % Platelet Count 301 K/uL Mean Platelet Volume 9.5 fL Sodium Level 133 mmol/L Potassium Level 4.8 mmol/L Chloride Level 97 mmol/L Carbon Dioxide Level 28 mmol/L Anion Gap 8.0 mmol/L Blood Urea Nitrogen 35 mg/dl Creatinine 2.70 mg/dl Est Creatinine Clear Calc Drug Dose 29.4 ml/min Estimated GFR () 28.2 Estimated GFR (Non- 24.3 BUN/Creatinine Ratio 13.0 Random Glucose 126 mg/dl Calcium Level 9.3 mg/dl Magnesium Level 2.1 mg/dl Lactic Acid Level 0.8 mmol/L (Jennifer Aponte, ESTRELLA) Diagnostic Results Reviewed the following studies and agree with interpretation as follows: Patient Name: OK MOHAN III Unit Number: [id number] Dictated: 03/02/17756 Transcribed: 03/02/17756 MARIELENA Printed Date/Time: [~ rep prt dt]/[~ rep prt tm] [~ rep ct labl] - [~ rep ct ivnm] [facility] [place] [address] Dictated: 03/02/17756 Transcribed: 03/02/17756 MARIELENA Printed Date/Time: [~ rep prt dt]/[~ rep prt tm] [~ rep ct labl] - [~ rep ct ivnm] Patient: OK MOHAN III Address1: [address] [place] [address] Rec: [id number] Address2: Acct ID: [id number] [facility] Zip: [place] [address] Date: 1955 Sex: M Room/Bed: E409-1 Ref Phy: No Doctor, Assigned SC: Johnson Att Phy: Billy Quiñones DNoaONoa Report #: [id number] Caty Phy: No Doctor, Assigned Test: KUB Admit Phy: Jaison Lynch M.D. Aircraft Maintenance Supervisor: CARLOS Interpreting Phy: Brady Benavidez MD Diagnosis: ACUTE RENAL FAILURE, COLONIC INERTIA Ordering Phy: Jennifer Aponte PA-C Service Date: 03/02/17 Admit Date: 02/25/1704/05/17 MNE: [id number] CONF: DICTATED BY: Brady Benavidez MD]] CC: Billy Quiñones D.OJennifer Arguello .ESTRELLA No Doctor, Assigned Endcc: [~ rep ct add3]] KUB CLINICAL HISTORY: Nonobstructive colonic ileus. COMPARISON STUDY: CT of the abdomen and pelvis February 24, 2017. FINDINGS: There is a moderate amount of stool within the right colon. Lucency along the wall of the hepatic flexure of the colon could reflect pneumatosis or artifact. Mild small bowel dilatation is noted. IMPRESSION: 1. Possible right colon pneumatosis. CT of the abdomen and pelvis is recommended. 2. Mild dilatation of small and large bowel which favors an ileus. 3. Moderate amount of stool within the right colon. Electronically signed by: Brady Benavidez M.D. 03/02/2017 8:22 AM Dictated Date/Time: 03/02/2017 7:57 AM The status of this report is Signed. Draft = Not yet reviewed or approved by Radiologist. Signed = Reviewed and approved by Radiologist. <AttendingPhy>Billy Quiñones, ChangONoa</AttendingPhy> <FamilyPhy>No Doctor, Assigned</FamilyPhy> <PrimaryPhy>No Doctor, Assigned</PrimaryPhy> <UnitNumber> [id number]</UnitNumber> <VisitNumber>[id number]</VisitNumber> <PatientName> OK MOHAN III</PatientName> <DateOfBirth>1955</DateOfBirth> < Location>C.4[facility]</Location> <ServiceDate>02/24/17</ServiceDate> <MNE>ESINDI</MNE> < OrderingPhy>eJnnifer Aponte PA-C</OrderingPhy> <OrderingPhyMNE>f rep ord dr mnzahira< /OrderingPhyMNE> <DictatingPhyMNE>f rep dict dr chavez</DictatingPhyMNE> <CCListMNE >f rep ct mne</CCListMNE> <AdmittingPhyMNE>f pt admit dr chavez</AdmittingPhyMNE> < AttendingPhyMNE>f pt attend dr chavez</AttendingPhyMNE> <ConsultingPhyMNE>f pt consult dr chavez</ConsultingPhyMNE> <FamilyPhyMNE>f pt fam dr chavez</FamilyPhyMNE> <OtherPhyMNE>f pt other dr chavez</OtherPhyMNE> < PrimaryPhyMNE>f pt prim care dr chvaez</PrimaryPhyMNE> <ReferringPhyMNE>f pt referring dr chavez</ReferringPhyMNE> Patient Name: OK MOHAN III Unit Number: [id number] Dictated: 03/02/171205 Transcribed: 03/02/171205 EV Printed Date/Time: [~ rep prt dt]/[~ rep prt tm] [~ rep ct labl] - [~ rep ct ivnm] [facility] [place] [address] Dictated: 03/02/171205 Transcribed: 03/02/17 120 EV Printed Date/Time: [~ rep prt dt]/[~ rep prt tm] [~ rep ct labl] - [~ rep ct ivnm] Patient: OK MOHAN III Address1: [address] [place] [address] Rec: [id number] Address2: Acct ID: [id number] [facility] Zip: [place] [address] Date: 1955 Sex: M Room/Bed: [facility] Ref Phy: No Doctor, Assigned SC: Johnson Att Phy: Billy Quiñones D.O. Report #: [id number] Caty Phy: No Doctor, Assigned Test: APWOR Admit Phy: Jaison Lynch M.D. Aircraft Maintenance Supervisor: BRITNEY Interpreting Phy: Jluis Lieberman M.D. Diagnosis: ACUTE RENAL FAILURE, COLONIC INERTIA Ordering Phy: Billy Quiñones D.O. Service Date: 03/02/17 Admit Date: 02/25/1704/05/17 MNE: [id number] CONF: DICTATED BY: Jluis Lieberman M.D.]] CC: Billy Quiñones D.O. No Doctor, Assigned Endcc: [~ rep ct add3]] CT SCAN OF THE ABDOMEN AND PELVIS WITHOUT IV CONTRAST CLINICAL HISTORY: Generalized abdominal pain. COMPARISON STUDY: Abdominal CT dated 02/24/2017. TECHNIQUE: CT scan of the abdomen and pelvis is performed from the lung bases to the proximal femora. Images are reviewed in the axial, sagittal, and coronal planes. IV contrast was not administered for this examination as per the referring clinician. Note that the examination was performed in significantly suboptimal fashion without IV contrast. Oral contrast was utilized. Automated dose control exposure was utilized. CT DOSE: 567.54 mGy.cm FINDINGS: Lung bases: The heart is normal in size and without pericardial effusion. Mild pericardial thickening is observed. There is a tiny hiatal hernia. There is a trace right pleural effusion. No airspace consolidation is seen typical for pneumonia there is minimal dependent atelectasis is observed. Liver: The unenhanced liver is normal in size, contour, and attenuation. There is no intrahepatic biliary ductal dilatation. Gallbladder: Unremarkable. Spleen: Normal in size and attenuation. Pancreas: Unremarkable. Adrenal glands: Unremarkable. Kidneys: The unenhanced kidneys are normal in size and without hydronephrosis. There are no renal calculi identified. There is no evidence of contour deforming renal mass lesion. Abdominal vasculature: The abdominal aorta is normal in course and caliber noting mild atherosclerotic calcification. Bowel: No bowel obstruction is seen. There is moderate fecal retention in the right colon, which has modestly improved from 02/24/2017. There is wall thickening and irregularity involving the anterior base of the cecum which is located just deep to the ventral abdominal wall. There are small foci of adjacent extraluminal gas, and the appearance is highly concerning for a contained perforation. No definite pneumatosis intestinalis is identified. The appendix is well-visualized and normal. Peritoneum: There is no abdominal ascites. Tiny foci of intraperitoneal free air are identified and discussed above. There is a small fat-containing umbilical hernia. Lymphadenopathy: None. Pelvic viscera: The bladder, prostate, and seminal vesicles are normal as visualized. Skeletal structures: The skeletal structures are osteopenic. There is mild/moderate lumbar sacral spondylosis. Degenerative change is also seen involving the sacroiliac joints and hips. No lytic or blastic lesions are seen. IMPRESSION: 1. Suboptimal examination without IV contrast. 2. There is wall thickening and irregularity identified involving the anterior wall of the cecum. Additionally, there are small foci of adjacent extraluminal gas and the appearance is highly concerning for a contained cecal perforation. Surgical consultation is advised. 3. There is moderate fecal retention in the right colon. This has modestly improved from 02/24/2017. 4. No definite pneumatosis intestinalis is identified in today's examination. No portal venous gas is seen. 5. There is no organized fluid collection to suggest abscess. 6. Trace right pleural effusion. 7. Additional changes as above. Electronically signed by: Jluis Lieberman M.D. 03/02/2017 12:20 PM Dictated Date/Time: 03/02/2017 12:06 PM The status of this report is Signed. Draft = Not yet reviewed or approved by Radiologist. Signed = Reviewed and approved by Radiologist. <AttendingPhy>Billy Quiñones D.O.</AttendingPhy> <FamilyPhy>No Doctor, Assigned</FamilyPhy> <PrimaryPhy>No Doctor, Assigned</PrimaryPhy> <UnitNumber> [id number]</UnitNumber> <VisitNumber>[id number]</VisitNumber> <PatientName> KIMBERLEEOK Yao III</PatientName> <DateOfBirth>1955</DateOfBirth> < Location>C.4[facility]</Location> <ServiceDate>02/24/17</ServiceDate> <MNE>ESINDI</MNE> < OrderingPhy>Billy Quiñones D.O.</OrderingPhy> <OrderingPhyMNE>f rep ord dr chavez</OrderingPhyMNE> <DictatingPhyMNE>f rep dict dr chavez</DictatingPhyMNE> < CCListMNE>f rep ct mne</CCListMNE> <AdmittingPhyMNE>f pt admit dr chavez</ AdmittingPhyMNE> <AttendingPhyMNE>f pt attend dr chavez</AttendingPhyMNE> <ConsultingPhyMNE>f pt consult dr chavez</ConsultingPhyMNE> <FamilyPhyMNE>f pt fam dr chavez</FamilyPhyMNE> <OtherPhyMNE>f pt other dr chavez</OtherPhyMNE> < PrimaryPhyMNE>f pt prim care dr chavez</PrimaryPhyMNE> <ReferringPhyMNE>f pt referring dr chavez</ReferringPhyMNE> (Jennifer Aponte ., ESTRELLA) Assessment and Plan 61-year-old male with a history of hypertension, gout and chronic pain who presented to the ED with abdominal pain 3 days after reportedly eating 85 saltine crackers and drinking beer. Last reported BM 2 days ago. States he took 34 Ex-Lax tablets and 17 doses of Miralax without relief. He was also taking significant amounts of naproxen and ibuprofen, and also took left over Percocet from a previous shoulder injury with the pain. He also gave himself a homemade enema of contact lens fluid. He also reports subjective fevers. Pt with low grade fever of 37.7C on arrival as well as tachycardic and hypertensive. Chest/abdomen x-ray showed mild bibasilar atelectasis and probable developing distal small bowel partial obstructive change. CT of abdomen/pelvis showed moderate distention of the proximal cecum to mid transverse colon, likely nonobstructive ileus. Nonobstructive colonic ileus--improving -Admit to med/surg -Continue full liquid diet. Pt tolerating well -Continue Dulcolax 10 mg MO qd prn constipation. Pt states these are helping -D/C fleet enemas as phosphorus is elevated at 5.0 -Colace 100 mg PO BID -Miralax scheduled qd -KUB concerning for possible right colon pneumatosis. Mild dilation of small bowel, large bowel consistent with ileus -CT of abdomen and pelvis with PO contrast concerning for contained cecum perforation -Gen. surgery consult, appreciate recs. Spoke with Dr. Miles on the phone. He is reviewing CT images and will make further recommendations then. -Patient kept NPO for possible surgery Acute renal failure--improving. Baseline creatinine 1.3 -Creatinine upon arrival 3.3 -Creatinine improved to 3.1 on 02/28 -Creatinine continues to improve to 2.7 on 03/02 -Nephrology consulted, appreciate recs: avoid further phosphorus enemas due to BLAKE. Continue current fluid restriction. Continue BP regimen. BP and sodium levels acceptable. Avoid IV contrast. Recheck metabolic profile and urine osmolality in the morning -Thiamine 100 mg PO qd and folic acid 1 mg PO qd ordered by nephro -Folate level within normal limits -Avoid nephrotoxins, continue to monitor -Renal U/S: bilateral increased renal cortical echogenicity consistent with renal disease. Mild right perinephric edema and mild bladder wall thickening, unchanged from 02/24 CT Hypertensive urgency--improving -Increase amlodipine to 10 mg PO qd, increase metoprolol succinate to 100 mg PO BID -Continue clonidine 0.2 mg patch -Cardizem ER 240 mg PO qd -BP improving with SBP now 130s-150s Hyponatremia--improving -Sodium 126 on arrival -Fluid restriction per nephrology as above -Sodium 133 on 03/02 -Urine osmolality still low at 321, improved from 314 -Continue to monitor Gout -Hold allopurinol and indomethacin for now DVT prophylaxis -SCDs Code Status -Level I, FULL RESUSCITATION STATUS This chart was completed in part utilizing [employer] Speech Voice Recognition software. Attempts were made to minimize the grammatical errors, random word insertions, pronoun errors and incomplete sentences. Any formal questions or concerns about the content, text or information contained within the body of this dictation should be directly addressed to the provider for clarification. (Jennifer Aponte ., PA-C) I agree with PA assessment and plan and have seen and examined pt myself Asking to advance diet CT abd/pelvis did reveal tiny pockets of intrabdominal air Gen surg consulted, states no intervention at this time Cont IV antibx Diet advancement per gen surg Cont bowel regimen (Billy Quiñones D.O.)
--- NOTE | 2017-03-02 14:55 | Surgery Progress Note ---
Surgery Progress Note Date of Service Mar 02, 2017. Subjective + feeling well F/U CT scan-IMPRESSION: 1. Suboptimal examination without IV contrast. 2. There is wall thickening and irregularity identified involving the anterior wall of the cecum. Additionally, there are small foci of adjacent extraluminal gas and the appearance is highly concerning for a contained cecal perforation. Surgical consultation is advised. 3. There is moderate fecal retention in the right colon. This has modestly improved from 02/24/2017. pt siad he is doing better, pt's WBC is normal, no fever, the abdominal pain is better, Objective Vital Signs: Date Time Temp Pulse Resp B/P Pulse Ox O2 Delivery O2 Flow Rate FiO2 03/02/17 09:30 Room Air 03/02/17 07:19 36.7 61 18 151/77 95 Room Air 03/02/17 00:20 Room Air 03/01/17 23:07 36.7 66 17 113/65 97 Room Air 03/01/17 16:56 36.6 70 18 157/89 95 Room Air 03/01/17 16:20 Room Air General Appearance: WD/WN Head: normocephalic Neck: supple Respiratory/Chest: chest non-tender Cardiovascular: regular rate, rhythm, no edema, no JVD Abdomen: normal bowel sounds, soft, no organomegaly, + tenderness (some tenderness at RLQ, no rebound pain, ) Laboratory Results: Results Past 24 Hours Test 03/01/17 16:10 03/02/17 06:25 03/02/17 11:40 Range/Units Urine Osmolality 321 500-800 mOms/kg White Blood Count 9.97 4.8-10.8 K/uL Red Blood Count 4.15 4.7-6.1 M/uL Hemoglobin 12.3 14.0-18.0 g/dL Hematocrit 35.8 42-52 % Mean Corpuscular Volume 86.3 80-100 fL Mean Corpuscular Hemoglobin 29.6 25-34 pg Mean Corpuscular Hemoglobin Concent 34.4 32-36 g/dl RDW Standard Deviation 43.0 36.4-46.3 fL RDW Coefficient of Variation 13.6 11.5-14.5 % Platelet Count 301 130-400 K/uL Mean Platelet Volume 9.5 7.4-10.4 fL Sodium Level 133 136-145 mmol/L Potassium Level 4.8 3.5-5.1 mmol/L Chloride Level 97 98-107 mmol/L Carbon Dioxide Level 28 21-32 mmol/L Anion Gap 8.0 3-11 mmol/L Blood Urea Nitrogen 35 7-18 mg/dl Creatinine 2.70 0.60-1.40 mg/dl Est Creatinine Clear Calc Drug Dose 29.4 ml/min Estimated GFR () 28.2 Estimated GFR (Non- 24.3 BUN/Creatinine Ratio 13.0 10-20 Random Glucose 126 70-99 mg/dl Calcium Level 9.3 8.5-10.1 mg/dl Magnesium Level 2.1 1.8-2.4 mg/dl Lactic Acid Level 0.8 0.4-2.0 mmol/L Assessment & Plan IMP: contained cecal perforation, no abscess, no free perforation Plan: I recommend to do conservative treatment now, I Discussed with pt about treatment options, pt understood, IV antibiotic, repeat labs in am,will F/U
[2017-03-02 15:46] VITALS: BP 130/81; PULSE 67; TEMP 36.8; O2SAT 97
[2017-03-02] MEDS: CIPROFLOXACIN / D5W 400 MG in PREMIXED IN D5W 200 ML IV SCH (16:17)
[2017-03-02] MEDS: METRONIDAZOLE / NSS 500 MG in PREMIXED NSS 100 ML IV SCH ×2 (16:17→23:35)
[2017-03-03 00:21] VITALS: BP 133/76; PULSE 70; TEMP 36.6; O2SAT 98
[2017-03-03] MEDS: LEVALBUTEROL 1.25MG/0.5ML NEB INH SCH ×4 (02:25→19:17)
[2017-03-03] MEDS: IPRATROPIUM BROMIDE NEB SOLN 0.02% 2.5 ML VIAL INH SCH ×4 (02:25→19:17)
[2017-03-03] MEDS: CIPROFLOXACIN / D5W 400 MG in PREMIXED IN D5W 200 ML IV SCH ×2 (05:00→17:55)
[2017-03-03] MEDS: OXYCODONE HCL IR 5 MG TAB (IMMEDIATE RELEASE) PO PRN ×2 (05:07→09:38)
[2017-03-03 07:33] VITALS: BP 143/61; PULSE 69; TEMP 36.8; O2SAT 96
[2017-03-03 07:38] LABS: BASO % 0.2 %; BASO ABS # 0.02 K/uL (0-0.2); COMPLETE YES; EOS % 1.4 %; HEMATOCRIT 34.9 % (42-52); IG% 0.9 %; LYMPH % 22.5 %; LYMPH ABS # 1.94 K/uL (1.2-3.4); MEAN CELL VOLUME 86.8 fL (80-100); MEAN CORPUSCULAR HEMOGLOBIN 29.9 pg (25-34); MEAN CORPUSCULAR HGB CONC 34.4 g/dl (32-36); MEAN PLATELET VOLUME 9.5 fL (7.4-10.4); MONO % 9.4 %; NEUT % 65.6 %; PLATELET COUNT 302 K/uL (130-400); RED BLOOD COUNT 4.02 M/uL (4.7-6.1); WHITE BLOOD COUNT 8.61 K/uL (4.8-10.8)
[2017-03-03 07:58] LABS: BUN/CREATININE RATIO 13.4 (10-20); CREATININE 2.5 mg/dl (0.60-1.40); POTASSIUM 4.4 mmol/L (3.5-5.1)
[2017-03-03] MEDS: METRONIDAZOLE / NSS 500 MG in PREMIXED NSS 100 ML IV SCH ×3 (08:08→23:50)
[2017-03-03] MEDS: MULTIVITAMIN TAB PO SCH (08:11)
[2017-03-03] MEDS: POLYETHYLENE (MIRALAX) 17 GM PACK PO SCH (08:11)
[2017-03-03] MEDS: THIAMINE HCL 100 MG TAB PO SCH (08:11)
[2017-03-03] MEDS: DOCUSATE SODIUM 100 MG CAP PO SCH ×2 (08:11→19:57)
[2017-03-03] MEDS: METOPROLOL SUCC 50MG EXT REL TAB PO SCH ×2 (08:11→19:58)
[2017-03-03] MEDS: AMLODIPINE BESYLATE 5 MG TAB PO SCH (08:11)
[2017-03-03] MEDS: DILTIAZEM HCL 240 MG CAPCR PO SCH (08:11)
[2017-03-03] MEDS: PANTOprazole INJ 40 MG in SYRINGE 0 ML IV SCH (08:12)
[2017-03-03] MEDS: CHECK CLONIDINE PATCH PLACEMENT SCH ×2 (08:12→15:53)
--- NOTE | 2017-03-03 10:58 | Surgery Progress Note ---
Surgery Progress Note Date of Service Mar 03, 2017. Subjective Post OP Day: HD# 6 + feeling well, + flatus, + pain controlled, No SOB, No bowel movement, No chest pain, No nausea, No vomiting Objective Vital Signs: Date Time Temp Pulse Resp B/P Pulse Ox O2 Delivery O2 Flow Rate FiO2 03/03/17 07:33 36.8 69 18 143/61 96 03/03/17 00:21 36.6 70 20 133/76 98 Room Air 03/02/17 23:30 Room Air 03/02/17 16:15 Room Air 03/02/17 15:46 36.8 67 18 130/81 97 Room Air General Appearance: WD/WN, no apparent distress Head: normocephalic, atraumatic Neck: trachea midline Respiratory/Chest: lungs clear, normal breath sounds, no respiratory distress, no accessory muscle use Cardiovascular: regular rate, rhythm Abdomen: non distended, soft, + tenderness (RLQ and right of umbilicus, no rigidity, guarding or rebound) Laboratory Results: Results Past 24 Hours Test 03/02/17 11:40 03/03/17 01:00 03/03/17 07:10 Range/Units Lactic Acid Level 0.8 0.4-2.0 mmol/L Urine Osmolality 241 500-800 mOms/kg White Blood Count 8.61 4.8-10.8 K/uL Red Blood Count 4.02 4.7-6.1 M/uL Hemoglobin 12.0 14.0-18.0 g/dL Hematocrit 34.9 42-52 % Mean Corpuscular Volume 86.8 80-100 fL Mean Corpuscular Hemoglobin 29.9 25-34 pg Mean Corpuscular Hemoglobin Concent 34.4 32-36 g/dl Platelet Count 302 130-400 K/uL Mean Platelet Volume 9.5 7.4-10.4 fL Neutrophils (%) (Auto) 65.6 % Lymphocytes (%) (Auto) 22.5 % Monocytes (%) (Auto) 9.4 % Eosinophils (%) (Auto) 1.4 % Basophils (%) (Auto) 0.2 % Neutrophils # (Auto) 5.64 1.4-6.5 K/uL Lymphocytes # (Auto) 1.94 1.2-3.4 K/uL Monocytes # (Auto) 0.81 0.11-0.59 K/uL Eosinophils # (Auto) 0.12 0-0.5 K/uL Basophils # (Auto) 0.02 0-0.2 K/uL RDW Standard Deviation 42.9 36.4-46.3 fL RDW Coefficient of Variation 13.4 11.5-14.5 % Immature Granulocyte % (Auto) 0.9 % Immature Granulocyte # (Auto) 0.08 0.00-0.02 K/uL Sodium Level 133 136-145 mmol/L Potassium Level 4.4 3.5-5.1 mmol/L Chloride Level 97 98-107 mmol/L Carbon Dioxide Level 28 21-32 mmol/L Anion Gap 8.0 3-11 mmol/L Blood Urea Nitrogen 34 7-18 mg/dl Creatinine 2.50 0.60-1.40 mg/dl Est Creatinine Clear Calc Drug Dose 31.8 ml/min Estimated GFR () 31.0 Estimated GFR (Non- 26.7 BUN/Creatinine Ratio 13.4 10-20 Random Glucose 133 70-99 mg/dl Calcium Level 9.0 8.5-10.1 mg/dl Assessment & Plan Contained Cecal Microperforation - vitals stable - afebrile, no leukocytosis - abdominal examination improving, tenderness in RLQ and right of umbilicus - passing flatus Plan: Advance diet to clear liquids, may have coffee Dulcolax suppository x 1 Continue current management by medicine Continue IV antibiotics Will continue to monitor Dr. Miles has seen and examined patient agrees with assessment and plan.
[2017-03-03] MEDS ORDERED: BISACODYL 10 MG SUPP PR ONE (11:15)
--- NOTE | 2017-03-03 12:00 | Nephrology Progress Note ---
Nephrology Progress Note Date of Service Mar 03, 2017. Chief Complaint BLAKE, hyponatremia Subjective No acute events overnight. Mr. Mitchell feels well this morning. He is disheartened by his diagnosis. He is frustrated due to inability to eat. He denies significant abdominal pain. I discussed the plan of care with Jluis Driscoll PA-C this morning. Review of Systems A complete review of systems was performed. Pertinent positives are noted above. All other systems are negative. Vital Signs Last 8 Hrs Date Time Temp Pulse Resp B/P Pulse Ox O2 Delivery O2 Flow Rate FiO2 03/03/17 11:00 Room Air 03/03/17 07:33 36.8 69 18 143/61 96 I & O 24-Hour Column 03/03/17 08:00 Intake Total 499 ml Output Total 600 ml Balance -101 ml Last Recorded Weight Weight (Kilograms): 85.300 Physical Exam General Appearance: WD/WN, no apparent distress Head: normocephalic, atraumatic Eyes: normal inspection, sclerae normal ENT: normal ENT inspection, pharynx normal Neck: supple, no JVD Respiratory/Chest: chest non-tender, no respiratory distress, no accessory muscle use Cardiovascular: regular rate, rhythm, no gallop, no murmur Abdomen/GI: + tenderness, + distended Extremities/Musculoskelatal: normal inspection, no pedal edema Neurologic/Psych: alert, oriented x 3 Family History Patient reports no known family medical history. Social History Smokeless Tobacco Use: No Alcohol Use: socially Drug Use: none Marital Status: single Laboratory Results Past 24 Hours 03/03/17 07:10 Red Blood Count 4.02, Mean Corpuscular Volume 86.8, Mean Corpuscular Hemoglobin 29.9, Mean Corpuscular Hemoglobin Concent 34.4, Mean Platelet Volume 9.5, Neutrophils (%) (Auto) 65.6, Lymphocytes (%) (Auto) 22.5, Monocytes (%) (Auto) 9.4, Eosinophils (%) (Auto) 1.4, Basophils (%) (Auto) 0.2, Neutrophils # (Auto) 5.64, Lymphocytes # (Auto) 1.94, Monocytes # (Auto) 0.81, Eosinophils # (Auto) 0.12, Basophils # (Auto) 0.02 03/03/17 07:10 Test 03/03/17 01:00 03/03/17 07:10 Urine Osmolality 241 mOms/kg (500-800) White Blood Count 8.61 K/uL (4.8-10.8) Red Blood Count 4.02 M/uL (4.7-6.1) Hemoglobin 12.0 g/dL (14.0-18.0) Hematocrit 34.9 % (42-52) Mean Corpuscular Volume 86.8 fL (80-100) Mean Corpuscular Hemoglobin 29.9 pg (25-34) Mean Corpuscular Hemoglobin Concent 34.4 g/dl (32-36) Platelet Count 302 K/uL (130-400) Mean Platelet Volume 9.5 fL (7.4-10.4) Neutrophils (%) (Auto) 65.6 % Lymphocytes (%) (Auto) 22.5 % Monocytes (%) (Auto) 9.4 % Eosinophils (%) (Auto) 1.4 % Basophils (%) (Auto) 0.2 % Neutrophils # (Auto) 5.64 K/uL (1.4-6.5) Lymphocytes # (Auto) 1.94 K/uL (1.2-3.4) Monocytes # (Auto) 0.81 K/uL (0.11-0.59) Eosinophils # (Auto) 0.12 K/uL (0-0.5) Basophils # (Auto) 0.02 K/uL (0-0.2) RDW Standard Deviation 42.9 fL (36.4-46.3) RDW Coefficient of Variation 13.4 % (11.5-14.5) Immature Granulocyte % (Auto) 0.9 % Immature Granulocyte # (Auto) 0.08 K/uL (0.00-0.02) Anion Gap 8.0 mmol/L (3-11) Est Creatinine Clear Calc Drug Dose 31.8 ml/min Estimated GFR () 31.0 Estimated GFR (Non- 26.7 BUN/Creatinine Ratio 13.4 (10-20) Calcium Level 9.0 mg/dl (8.5-10.1) Allergies Coded Allergies: Aspirin (Verified Adverse Reaction, Severe, GI SYMPTOMS, 02/24/17) BLOOD IN STOOL (REGULAR STRENGTH ASPIRIN) Methadone (Verified Adverse Reaction, Severe, VOMITING, 02/24/17) Medications Current Inpatient Medications Medications (Trade) Dose Ordered Sig/Romana Route Start Time Stop Time Status Last Admin Dose Admin Acetaminophen (Tylenol Tab) 650 mg Q4H PRN PO 02/25/17 00:45 03/27/17 00:44 Zolpidem Tartrate (Ambien Tab) 5 mg HSZ PRN PO 02/25/17 00:45 03/27/17 00:44 Tramadol HCl (Ultram Tab) 50 mg TID PRN PO 02/25/17 00:45 03/27/17 00:44 02/25/17 01:31 50 MG Tizanidine HCl (Zanaflex Tab) 2 mg TID PRN PO 02/25/17 00:45 03/27/17 00:44 Ondansetron HCl (Zofran Inj) 4 mg Q6H PRN IV 02/25/17 00:45 03/27/17 00:44 Diphenhydramine HCl 25 mg 25 mg Q4H PRN IV 02/25/17 00:45 03/27/17 00:44 Pantoprazole Sodium/Syringe (Protonix Inj/ Syringe) 10 ml @ 5 mls/min DAILY@11 IV 02/25/17 11:00 03/27/17 10:59 03/03/17 08:12 5 MLS/MIN Bisacodyl (Dulcolax Supp) 10 mg DAILY PRN [place] 02/25/17 00:45 03/27/17 00:44 02/27/17 16:36 10 MG Ipratropium [place] (Atrovent 0.02% 0.5MG/2.5ML Neb) 0.5 mg Q6R INH 02/25/17 03:00 03/27/17 02:59 Levalbuterol (Xopenex 1.25MG/ 0.5ML Neb) 1.25 mg Q6R INH 02/25/17 03:00 03/27/17 02:59 Ipratropium [place] (Atrovent 0.02% 0.5MG/2.5ML Neb) 0.5 mg Q2H PRN INH 02/25/17 01:15 03/27/17 01:14 Levalbuterol (Xopenex 1.25MG/ 0.5ML Neb) 1.25 mg Q2H PRN INH 02/25/17 01:15 03/27/17 01:14 Oxycodone HCl (Roxicodone Immediate Rel Tab) 10 mg Q4H PRN PO 02/25/17 02:00 03/11/17 01:59 03/03/17 09:38 10 MG Oxycodone HCl (Roxicodone Immediate Rel Tab) 5 mg Q4H PRN PO 02/25/17 02:00 03/11/17 01:59 03/02/17 16:28 5 MG Allopurinol (Zyloprim Tab) 50 mg DAILY PRN PO 02/25/17 11:00 03/27/17 10:59 Future Hold Indomethacin (Indocin Cap) 25 mg BID PRN PO 02/25/17 11:00 03/27/17 10:59 Future Hold Lisinopril (Zestril Tab) 40 mg QAM PO 02/26/17 09:00 03/28/17 08:59 Future Hold Hydralazine HCl (HydrALAZINE INJ) 10 mg Q6H PRN IV. 02/25/17 11:15 03/27/17 11:14 Future Hold 02/25/17 15:29 10 MG Miscellaneous Information (Check Clonidine Patch Placement) 1 ea QS N/A 02/25/17 16:00 03/27/17 15:59 03/03/17 08:12 1 EA Hydralazine HCl (Apresoline Tab) 25 mg TID PO 02/25/17 21:00 03/27/17 20:59 03/03/17 08:11 25 MG Multivitamins (Multivitamin Tab) 1 tab QAM PO 02/26/17 09:00 03/28/17 08:59 03/03/17 08:11 1 TAB Docusate Sodium (coLACE CAP) 100 mg BID PO 02/26/17 20:00 03/28/17 20:59 03/03/17 08:11 100 MG Amlodipine Besylate (Norvasc Tab) 10 mg QAM PO 02/27/17 08:00 03/29/17 07:59 03/03/17 08:11 10 MG Metoprolol Succinate (Toprol Xl Tab) 100 mg BID PO 02/27/17 08:00 03/29/17 07:59 03/03/17 08:11 100 MG Clonidine HCl (Mkoullqc-Kwr-5 0.2mg/24hr Patch) 1 patch Q7D@1800 TD 02/27/17 18:00 03/29/17 17:59 02/27/17 20:27 1 PATCH Miscellaneous (Remove Clonidine Patch) 1 ea Q7D@1759 N/A 02/27/17 17:59 03/29/17 17:58 02/27/17 20:27 1 EA Diltiazem HCl (Cardizem Cd Cap) 240 mg QAM PO 02/28/17 08:00 03/30/17 07:59 03/03/17 08:11 240 MG Thiamine HCl (Vitamin B-1 Tab) 100 mg QAM PO 03/01/17 08:00 03/31/17 07:59 03/03/17 08:11 100 MG Folic Acid (Folvite Tab) 1 mg QAM PO 03/01/17 08:00 03/31/17 07:59 03/03/17 08:12 1 MG Polyethylene 17 gm 17 gm DAILY PO 03/01/17 08:00 03/31/17 07:59 03/03/17 08:11 17 GM Ciprofloxacin/ Dextrose 400 mg/ Prmx 200 ml @ 100 mls/hr Q12H IV 03/02/17 16:00 03/09/17 15:59 03/03/17 05:00 100 MLS/HR Metronidazole/Prmx (Flagyl / Nss/ Premixed Nss) 100 ml @ 100 mls/hr Q8H IV 03/02/17 16:00 03/09/17 15:59 03/03/17 08:08 100 MLS/HR Impression (1) Acute kidney injury (2) Hyponatremia (3) Hypertension (4) Partial small bowel obstruction Mr. Mitchell is a 61-year-old male hypertension, chronic back pain and alcohol abuse. He has acute renal insufficiency and accelerated hypertension. Blood pressure at home treated with lisinopril. Mr. Mitchell has not regularly had his blood pressure monitored and has not had routine follow up with any PCP. He notes significant NSAID use on a regular basis. He has been using naproxen and indomethacin chronically. He was on lisinopril 40 milligram p.o. daily for hypertension which is on hold since admission. He presented with lower abdominal pain in the setting of significant opiate use. Imaging now reveals a cecal perforation. CT abdomen pelvis on admission showed partial SBO. There is no prior history of chronic kidney disease reported, last creatinine was 1.3 in January 2016. On admission, creatinine was 3.4. Creatinine continues to improve. Urinalysis initially was positive for low grade proteinuria and microscopic hematuria; repeat UA was negative for proteinuria or hematuria. Acute kidney injury appears to be hemodynamically mediated with concomitant use of CARLOS-inhibitor and NSAIDs. He is non oliguric. Hyponatremia persists consistent with poor solute intake. This has been attributed to increased free water intake and excessive alcohol intake with decrease free water clearance. Serum sodium had initially improved with NSS. Sodium stable and mildly low this morning. Clonidine, amlodipine, metoprolol tartrate, hydralazine and diltiazem have all been added since admission for blood pressure control. Recommendations -- Blood pressure and volume status currently appropriate -- Sodium acceptable -- Continue fluid restriction of 1.5 L/d -- Continue clonidine 0.2 mg patch -- Continue amlodipine 10 mg daily -- Continue metoprolol, diltiazem and hydralazine as prescribed -- Avoid iodinated contrast as able at this time -- Will continue to follow peripherally with monitoring of daily labs. Please call with any questions or concerns.
[2017-03-03] MEDS ORDERED: OXYCODONE HCL IR 5 MG TAB (IMMEDIATE RELEASE) PO PRN (14:00)
[2017-03-03 16:01] VITALS: BP 122/76; PULSE 65; TEMP 36.9; O2SAT 96
--- NOTE | 2017-03-03 18:05 | Hospitalist Progress Note ---
Hospitalist Progress Note Date of Service Mar 03, 2017. (Jluis Driscoll PA-C) Subjective Pt evaluation today including: conversation w/ patient, physical exam, chart review, lab review, review of studies Pain: continues with pain in the right upper quadrant PO Intake: tolerating oral intake This is a 61-year-old male who was admitted 02/24/17 for abdominal pain. The patient has been constipated for several days prior and reported eating 85 saltine crackers followed by. Her. He then took 34 Ex-Lax tablets. He then took 17 doses of MiraLAX that he obtained from his neighbor without relief. Then he took naproxen and ibuprofen for pain. He then uses leftover Percocet from her previous shoulder injury with no relief pain. Then he gave himself a homemade enema with contact lens fluid. He presented with hyponatremia with a normal magnesium of 2.5 and in normal potassium. He also was found to have acute on chronic kidney failure with a creatinine of 3.3 and a baseline of 1.3. He is currently followed by nephrology and surgery. This morning the patient is found to have similar abdominal pain is prior. He is not having any nausea or vomiting. He has no diarrhea. He is still awaiting a bowel movement. He is slowly advancing diet per surgery. He has no shortness of breath or chest pain. He has no awareness of tachyarrhythmias or palpitations. He denies fever or chills. He does have chronic back pain as well as neck pain. He has no other acute complaints Constitutional: No chills, No fever Eyes: No eye pain Respiratory: No cough, No shortness of breath, No sputum, No wheezing Cardiovascular: No chest pain, No edema Abdomen: + constipation, + pain (as described in history of present illness) , No nausea, No vomiting Musculoskeletal: + problem reported (chronic back pain) Male : No hematuria Neurologic: + numbness/tingling (chronic in fingers), No vertigo Skin: No rash All Other Systems: Reviewed and Negative (Jluis Driscoll PA-C) Medications Current Inpatient Medications Medications (Trade) Dose Ordered Sig/Romana Route Start Time Stop Time Status Last Admin Dose Admin Acetaminophen (Tylenol Tab) 650 mg Q4H PRN PO 02/25/17 00:45 03/27/17 00:44 Zolpidem Tartrate (Ambien Tab) 5 mg HSZ PRN PO 02/25/17 00:45 03/27/17 00:44 Tramadol HCl (Ultram Tab) 50 mg TID PRN PO 02/25/17 00:45 03/27/17 00:44 02/25/17 01:31 50 MG Tizanidine HCl (Zanaflex Tab) 2 mg TID PRN PO 02/25/17 00:45 03/27/17 00:44 Ondansetron HCl (Zofran Inj) 4 mg Q6H PRN IV 02/25/17 00:45 03/27/17 00:44 Diphenhydramine HCl 25 mg 25 mg Q4H PRN IV 02/25/17 00:45 03/27/17 00:44 Pantoprazole Sodium/Syringe (Protonix Inj/ Syringe) 10 ml @ 5 mls/min DAILY@11 IV 02/25/17 11:00 03/27/17 10:59 03/03/17 08:12 5 MLS/MIN Bisacodyl (Dulcolax Supp) 10 mg DAILY PRN ID 02/25/17 00:45 03/27/17 00:44 02/27/17 16:36 10 MG Ipratropium [place] (Atrovent 0.02% 0.5MG/2.5ML Neb) 0.5 mg Q6R INH 02/25/17 03:00 03/27/17 02:59 Levalbuterol (Xopenex 1.25MG/ 0.5ML Neb) 1.25 mg Q6R INH 02/25/17 03:00 03/27/17 02:59 Ipratropium [place] (Atrovent 0.02% 0.5MG/2.5ML Neb) 0.5 mg Q2H PRN INH 02/25/17 01:15 03/27/17 01:14 Levalbuterol (Xopenex 1.25MG/ 0.5ML Neb) 1.25 mg Q2H PRN INH 02/25/17 01:15 03/27/17 01:14 Oxycodone HCl (Roxicodone Immediate Rel Tab) 5 mg Q4H PRN PO 02/25/17 02:00 03/11/17 01:59 03/02/17 16:28 5 MG Allopurinol (Zyloprim Tab) 50 mg DAILY PRN PO 02/25/17 11:00 03/27/17 10:59 Future Hold Indomethacin (Indocin Cap) 25 mg BID PRN PO 02/25/17 11:00 03/27/17 10:59 Future Hold Lisinopril (Zestril Tab) 40 mg QAM PO 02/26/17 09:00 03/28/17 08:59 Future Hold Hydralazine HCl (HydrALAZINE INJ) 10 mg Q6H PRN IV. 02/25/17 11:15 03/27/17 11:14 Future Hold 02/25/17 15:29 10 MG Miscellaneous Information (Check Clonidine Patch Placement) 1 ea QS N/A 02/25/17 16:00 03/27/17 15:59 03/03/17 15:53 1 EA Hydralazine HCl (Apresoline Tab) 25 mg TID PO 02/25/17 21:00 03/27/17 20:59 03/03/17 13:05 25 MG Multivitamins (Multivitamin Tab) 1 tab QAM PO 02/26/17 09:00 03/28/17 08:59 03/03/17 08:11 1 TAB Docusate Sodium (coLACE CAP) 100 mg BID PO 02/26/17 20:00 03/28/17 20:59 03/03/17 08:11 100 MG Amlodipine Besylate (Norvasc Tab) 10 mg QAM PO 02/27/17 08:00 03/29/17 07:59 03/03/17 08:11 10 MG Metoprolol Succinate (Toprol Xl Tab) 100 mg BID PO 02/27/17 08:00 03/29/17 07:59 03/03/17 08:11 100 MG Clonidine HCl (Iqebqlww-Vhl-6 0.2mg/24hr Patch) 1 patch Q7D@1800 TD 02/27/17 18:00 03/29/17 17:59 02/27/17 20:27 1 PATCH Miscellaneous (Remove Clonidine Patch) 1 ea Q7D@1759 N/A 02/27/17 17:59 03/29/17 17:58 02/27/17 20:27 1 EA Diltiazem HCl (Cardizem Cd Cap) 240 mg QAM PO 02/28/17 08:00 03/30/17 07:59 03/03/17 08:11 240 MG Thiamine HCl (Vitamin B-1 Tab) 100 mg QAM PO 03/01/17 08:00 03/31/17 07:59 03/03/17 08:11 100 MG Folic Acid (Folvite Tab) 1 mg QAM PO 03/01/17 08:00 03/31/17 07:59 03/03/17 08:12 1 MG Polyethylene 17 gm 17 gm DAILY PO 03/01/17 08:00 03/31/17 07:59 03/03/17 08:11 17 GM Ciprofloxacin/ Dextrose 400 mg/ Prmx 200 ml @ 100 mls/hr Q12H IV 03/02/17 16:00 03/09/17 15:59 03/03/17 05:00 100 MLS/HR Metronidazole/Prmx (Flagyl / Nss/ Premixed Nss) 100 ml @ 100 mls/hr Q8H IV 03/02/17 16:00 03/09/17 15:59 03/03/17 15:52 100 MLS/HR Oxycodone/ Acetaminophen (Percocet 7.5-325MG Tab) 1 tab Q4H PRN PO 03/03/17 20:30 03/17/17 20:29 (Jluis Driscoll PA-C) Objective Vital Signs Date Time Temp Pulse Resp B/P Pulse Ox O2 Delivery O2 Flow Rate FiO2 03/03/17 16:46 Room Air 03/03/17 16:01 36.9 65 18 122/76 96 Room Air 03/03/17 11:00 Room Air 03/03/17 07:33 36.8 69 18 143/61 96 03/03/17 00:21 36.6 70 20 133/76 98 Room Air 03/02/17 23:30 Room Air (Jluis Driscoll PA-C) Physical Exam Notes: GENERAL : No acute distress EYES: No icterus, gaze conjugate. Pupils equal and reactive NOSE: No evidence of epistaxis MOUTH: No lesions or candidiasis NECK: Supple LUNGS: CTA B/L, no wheezes, rales or rhonchi HEART: Regular, rate controlled ABDOMEN: Soft, ND, BS Present in all four quadrants. Point tenderness in right upper quadrant EXTREMITIES: No LE edema, pedal pulses intact. NEURO: A&OX3 (Jluis Driscoll PA-C) Laboratory Results Last 24 Hours Test 03/03/17 01:00 03/03/17 07:10 Urine Osmolality 241 mOms/kg White Blood Count 8.61 K/uL Red Blood Count 4.02 M/uL Hemoglobin 12.0 g/dL Hematocrit 34.9 % Mean Corpuscular Volume 86.8 fL Mean Corpuscular Hemoglobin 29.9 pg Mean Corpuscular Hemoglobin Concent 34.4 g/dl Platelet Count 302 K/uL Mean Platelet Volume 9.5 fL Neutrophils (%) (Auto) 65.6 % Lymphocytes (%) (Auto) 22.5 % Monocytes (%) (Auto) 9.4 % Eosinophils (%) (Auto) 1.4 % Basophils (%) (Auto) 0.2 % Neutrophils # (Auto) 5.64 K/uL Lymphocytes # (Auto) 1.94 K/uL Monocytes # (Auto) 0.81 K/uL Eosinophils # (Auto) 0.12 K/uL Basophils # (Auto) 0.02 K/uL RDW Standard Deviation 42.9 fL RDW Coefficient of Variation 13.4 % Immature Granulocyte % (Auto) 0.9 % Immature Granulocyte # (Auto) 0.08 K/uL Sodium Level 133 mmol/L Potassium Level 4.4 mmol/L Chloride Level 97 mmol/L Carbon Dioxide Level 28 mmol/L Anion Gap 8.0 mmol/L Blood Urea Nitrogen 34 mg/dl Creatinine 2.50 mg/dl Est Creatinine Clear Calc Drug Dose 31.8 ml/min Estimated GFR () 31.0 Estimated GFR (Non- 26.7 BUN/Creatinine Ratio 13.4 Random Glucose 133 mg/dl Calcium Level 9.0 mg/dl (Jluis Driscoll PA-C) Diagnostic Results CT SCAN OF THE ABDOMEN AND PELVIS WITHOUT IV CONTRAST CLINICAL HISTORY: Generalized abdominal pain. COMPARISON STUDY: Abdominal CT dated 02/24/2017. TECHNIQUE: CT scan of the abdomen and pelvis is performed from the lung bases to the proximal femora. Images are reviewed in the axial, sagittal, and coronal planes. IV contrast was not administered for this examination as per the referring clinician. Note that the examination was performed in significantly suboptimal fashion without IV contrast. Oral contrast was utilized. Automated dose control exposure was utilized. CT DOSE: 567.54 mGy.cm FINDINGS: Lung bases: The heart is normal in size and without pericardial effusion. Mild pericardial thickening is observed. There is a tiny hiatal hernia. There is a trace right pleural effusion. No airspace consolidation is seen typical for pneumonia there is minimal dependent atelectasis is observed. Liver: The unenhanced liver is normal in size, contour, and attenuation. There is no intrahepatic biliary ductal dilatation. Gallbladder: Unremarkable. Spleen: Normal in size and attenuation. Pancreas: Unremarkable. Adrenal glands: Unremarkable. Kidneys: The unenhanced kidneys are normal in size and without hydronephrosis. There are no renal calculi identified. There is no evidence of contour deforming renal mass lesion. Abdominal vasculature: The abdominal aorta is normal in course and caliber noting mild atherosclerotic calcification. Bowel: No bowel obstruction is seen. There is moderate fecal retention in the right colon, which has modestly improved from 02/24/2017. There is wall thickening and irregularity involving the anterior base of the cecum which is located just deep to the ventral abdominal wall. There are small foci of adjacent extraluminal gas, and the appearance is highly concerning for a contained perforation. No definite pneumatosis intestinalis is identified. The appendix is well-visualized and normal. Peritoneum: There is no abdominal ascites. Tiny foci of intraperitoneal free air are identified and discussed above. There is a small fat-containing umbilical hernia. Lymphadenopathy: None. Pelvic viscera: The bladder, prostate, and seminal vesicles are normal as visualized. Skeletal structures: The skeletal structures are osteopenic. There is mild/moderate lumbar sacral spondylosis. Degenerative change is also seen involving the sacroiliac joints and hips. No lytic or blastic lesions are seen. IMPRESSION: 1. Suboptimal examination without IV contrast. 2. There is wall thickening and irregularity identified involving the anterior wall of the cecum. Additionally, there are small foci of adjacent extraluminal gas and the appearance is highly concerning for a contained cecal perforation. Surgical consultation is advised. 3. There is moderate fecal retention in the right colon. This has modestly improved from 02/24/2017. 4. No definite pneumatosis intestinalis is identified in today's examination. No portal venous gas is seen. 5. There is no organized fluid collection to suggest abscess. 6. Trace right pleural effusion. 7. Additional changes as above. Electronically signed by: Jluis Lieberman M.D. 03/02/2017 12:20 PM Dictated Date/Time: 03/02/2017 12:06 PM (Jluis Driscoll PA-C) Assessment and Plan CECAL MICROPERFORATION Surgery consulted - appreciate Dr. Miles's input Vital signs stable. Afebrile. No leukocytosis. Continued right abdominal tenderness Patient tolerating clear liquids Started with Dulcolax suppository Continue remainder of bowel regimen Empiric IV antibiotics - ciprofloxacin, metronidazole Patient with flatus today but no bowel movement as of this morning Continue monitor clinically Diet per general surgery HYPONATREMIA Associated with acute renal failure Nephrology consulted Sodium 126 on admission now 133 Urine osmolality 314 on admission now 241 Continue to follow labs Fluid restriction place ACUTE ON CHRONIC RENAL FAILURE Baseline creatinine 1.3 Creatine bumped to 3.3 - now 2.5 Continue to follow serial labs Appreciate nephrology consult HYPERTENSIVE URGENCY Elevated blood pressure on admission Patient on amlodipine, metoprolol succinate, clonidine patch, Cardizem ER Continue to monitor Currently systolic blood pressures in the 130s No chest pain or tightness GOUT No acute flareups on examination Continue to hold allopurinol and indomethacin CHRONIC BACK PAIN Jamilah morphine 10 mg as needed Patient reports that he prefers Percocet 7.5/325 Was fired from his most recent pain management physician or missing appointments and pill counts Narcotics prescribed by [facility] At this point no change to narcotics - we'll discuss with Dr. Rojas DVT PROPHYLAXIS No chemical prophylaxis secondary to microperforation of cecum and possible need for intervention Continue mechanical prophylaxis with KRISHNA hose and SCDs Increase ambulation as tolerated Discussed with Dr. Rojas. Please refer to his addendum for further recommendations. Continued [facility] stay due to: voiding difficulties, multiple IV medications needed Discharge planning: uncertain (Jluis Driscoll PA-C) Attending Attestation: Pt seen/examined, chart reviewed, care plan d/w PA Jluis Driscoll. I agree w/ the garcia components of his documentation. Pt overall feeling better. Tolerating clears. Mild right-sided abd pain only. Passing gas and did have small BM before my arrival. No sob. VSS no fever exam- abd - mild distension, BS+, minimal tenderness right side of abdomen, no masses , no HSM A/P: 1. cecal perforation - stable, on abx; defer management to gen surg 2. constipation - meds ordered by gen surg 3. acute renal failure - improved 4. hyponatremia - improved 5. chronic pain syndrome (lumbar spine DJD) 6. HTN - control adequate agree with gen surg and nephrology recommendations Donny Rojas MD (Donny Rojas MD)
[2017-03-03 19:00] VITALS: O2SAT 96
[2017-03-03] MEDS: OXYCODONE/ACETAMINOPHEN 7.5-325 TAB PO PRN ×2 (19:59→23:55)
[2017-03-03 23:25] VITALS: BP 104/67; PULSE 61; TEMP 36.6; O2SAT 96
[2017-03-04] MEDS: CHECK CLONIDINE PATCH PLACEMENT SCH ×3 (00:17→16:09)
[2017-03-04] MEDS: IPRATROPIUM BROMIDE NEB SOLN 0.02% 2.5 ML VIAL INH SCH ×3 (02:15→19:06)
[2017-03-04] MEDS: LEVALBUTEROL 1.25MG/0.5ML NEB INH SCH ×3 (02:16→19:06)
[2017-03-04] MEDS: CIPROFLOXACIN / D5W 400 MG in PREMIXED IN D5W 200 ML IV SCH ×2 (04:59→16:08)
[2017-03-04] MEDS: OXYCODONE/ACETAMINOPHEN 7.5-325 TAB PO PRN (05:40)
[2017-03-04 06:09] LABS: BUN/CREATININE RATIO 13.7 (10-20); CALCIUM 8.9 mg/dl (8.5-10.1); CREATININE 2.5 mg/dl (0.60-1.40); POTASSIUM 4.6 mmol/L (3.5-5.1)
[2017-03-04] MEDS: METRONIDAZOLE / NSS 500 MG in PREMIXED NSS 100 ML IV SCH ×3 (07:46→23:42)
[2017-03-04] MEDS: METOPROLOL SUCC 50MG EXT REL TAB PO SCH ×2 (07:47→19:51)
[2017-03-04] MEDS: AMLODIPINE BESYLATE 5 MG TAB PO SCH (07:47)
[2017-03-04] MEDS: THIAMINE HCL 100 MG TAB PO SCH (07:48)
[2017-03-04] MEDS: DILTIAZEM HCL 240 MG CAPCR PO SCH (07:49)
[2017-03-04] MEDS: MULTIVITAMIN TAB PO SCH (07:49)
[2017-03-04] MEDS: POLYETHYLENE (MIRALAX) 17 GM PACK PO SCH (07:49)
[2017-03-04] MEDS: DOCUSATE SODIUM 100 MG CAP PO SCH ×2 (07:49→19:48)
[2017-03-04] MEDS: OXYCODONE HCL IR 5 MG TAB (IMMEDIATE RELEASE) PO PRN ×4 (07:53→22:10)
[2017-03-04] MEDS: PANTOprazole INJ 40 MG in SYRINGE 0 ML IV SCH (07:57)
[2017-03-04 08:03] VITALS: BP 122/78; PULSE 56; TEMP 36.6; O2SAT 93
--- NOTE | 2017-03-04 12:46 | Nephrology Progress Note ---
Nephrology Progress Note Date of Service Mar 04, 2017. Chief Complaint BLAKE, hyponatremia Subjective No acute events overnight. Mr. Mitchell continues to experience some abdominal discomfort and pain. He had multiple questions this morning about alcohol and NSAID use and the potential effects on his kidneys. We spoke for at least 25- 30 minutes. He reviewed his diet and philosophy on healthy eating in detail. He states that he was using beer to treat chronic back pain symptoms. His primary concern at this time is managing his chronic back pain while trying to reduce his dependence on NSAIDs, opiates and alcohol. He states that he does not need any additional assistance with these goals. He denies fevers or chills. Review of Systems A complete review of systems was performed. Pertinent positives are noted above. All other systems are negative. Vital Signs Last 8 Hrs Date Time Temp Pulse Resp B/P Pulse Ox O2 Delivery O2 Flow Rate FiO2 03/04/17 08:03 36.6 56 18 122/78 93 Room Air 03/04/17 07:50 Room Air I & O 24-Hour Column 03/04/17 08:00 Intake Total 1470 ml Output Total 600 ml Balance 870 ml Last Recorded Weight Weight (Kilograms): 85.300 Physical Exam General Appearance: WD/WN, no apparent distress Head: normocephalic, atraumatic Eyes: normal inspection, sclerae normal ENT: normal ENT inspection, pharynx normal Neck: supple, no JVD Respiratory/Chest: lungs clear, no respiratory distress, no accessory muscle use Cardiovascular: regular rate, rhythm, no gallop, no murmur Abdomen/GI: + tenderness, + distended Extremities/Musculoskelatal: normal inspection, no pedal edema Neurologic/Psych: alert, oriented x 3 Family History Patient reports no known family medical history. Social History Smokeless Tobacco Use: No Alcohol Use: socially Drug Use: none Marital Status: single Laboratory Results Past 24 Hours 03/04/17 05:36 Test 03/04/17 05:36 03/04/17 10:26 Anion Gap 8.0 mmol/L (3-11) Est Creatinine Clear Calc Drug Dose 31.8 ml/min Estimated GFR () 31.0 Estimated GFR (Non- 26.7 BUN/Creatinine Ratio 13.7 (10-20) Calcium Level 8.9 mg/dl (8.5-10.1) Urine Osmolality 340 mOms/kg (500-800) Allergies Coded Allergies: Aspirin (Verified Adverse Reaction, Severe, GI SYMPTOMS, 02/24/17) BLOOD IN STOOL (REGULAR STRENGTH ASPIRIN) Methadone (Verified Adverse Reaction, Severe, VOMITING, 02/24/17) Medications Current Inpatient Medications Medications (Trade) Dose Ordered Sig/Romana Route Start Time Stop Time Status Last Admin Dose Admin Acetaminophen (Tylenol Tab) 650 mg Q4H PRN PO 02/25/17 00:45 03/27/17 00:44 Zolpidem Tartrate (Ambien Tab) 5 mg HSZ PRN PO 02/25/17 00:45 03/27/17 00:44 Tramadol HCl (Ultram Tab) 50 mg TID PRN PO 02/25/17 00:45 03/27/17 00:44 02/25/17 01:31 50 MG Tizanidine HCl (Zanaflex Tab) 2 mg TID PRN PO 02/25/17 00:45 03/27/17 00:44 Ondansetron HCl (Zofran Inj) 4 mg Q6H PRN IV 02/25/17 00:45 03/27/17 00:44 Diphenhydramine HCl 25 mg 25 mg Q4H PRN IV 02/25/17 00:45 03/27/17 00:44 Pantoprazole Sodium/Syringe (Protonix Inj/ Syringe) 10 ml @ 5 mls/min DAILY@11 IV 02/25/17 11:00 03/27/17 10:59 03/04/17 07:57 5 MLS/MIN Bisacodyl (Dulcolax Supp) 10 mg DAILY PRN SD 02/25/17 00:45 03/27/17 00:44 02/27/17 16:36 10 MG Ipratropium [place] (Atrovent 0.02% 0.5MG/2.5ML Neb) 0.5 mg Q6R INH 02/25/17 03:00 03/27/17 02:59 Levalbuterol (Xopenex 1.25MG/ 0.5ML Neb) 1.25 mg Q6R INH 02/25/17 03:00 03/27/17 02:59 Ipratropium [place] (Atrovent 0.02% 0.5MG/2.5ML Neb) 0.5 mg Q2H PRN INH 02/25/17 01:15 03/27/17 01:14 Levalbuterol (Xopenex 1.25MG/ 0.5ML Neb) 1.25 mg Q2H PRN INH 02/25/17 01:15 03/27/17 01:14 Oxycodone HCl (Roxicodone Immediate Rel Tab) 5 mg Q4H PRN PO 02/25/17 02:00 03/11/17 01:59 03/04/17 07:53 5 MG Allopurinol (Zyloprim Tab) 50 mg DAILY PRN PO 02/25/17 11:00 03/27/17 10:59 Future Hold Indomethacin (Indocin Cap) 25 mg BID PRN PO 02/25/17 11:00 03/27/17 10:59 Future Hold Lisinopril (Zestril Tab) 40 mg QAM PO 02/26/17 09:00 03/28/17 08:59 Future Hold Hydralazine HCl (HydrALAZINE INJ) 10 mg Q6H PRN IV. 02/25/17 11:15 03/27/17 11:14 Future Hold 02/25/17 15:29 10 MG Miscellaneous Information (Check Clonidine Patch Placement) 1 ea QS N/A 02/25/17 16:00 03/27/17 15:59 03/04/17 08:05 1 EA Hydralazine HCl (Apresoline Tab) 25 mg TID PO 02/25/17 21:00 03/27/17 20:59 03/04/17 07:46 25 MG Multivitamins (Multivitamin Tab) 1 tab QAM PO 02/26/17 09:00 03/28/17 08:59 03/04/17 07:49 1 TAB Docusate Sodium (coLACE CAP) 100 mg BID PO 02/26/17 20:00 03/28/17 20:59 03/04/17 07:49 100 MG Amlodipine Besylate (Norvasc Tab) 10 mg QAM PO 02/27/17 08:00 03/29/17 07:59 03/04/17 07:47 10 MG Metoprolol Succinate (Toprol Xl Tab) 100 mg BID PO 02/27/17 08:00 03/29/17 07:59 03/04/17 07:47 100 MG Clonidine HCl ([id number]-6 0.2mg/24hr Patch) 1 patch Q7D@1800 TD 02/27/17 18:00 03/29/17 17:59 02/27/17 20:27 1 PATCH Miscellaneous (Remove Clonidine Patch) 1 ea Q7D@1759 N/A 02/27/17 17:59 03/29/17 17:58 02/27/17 20:27 1 EA Diltiazem HCl (Cardizem Cd Cap) 240 mg QAM PO 02/28/17 08:00 03/30/17 07:59 03/04/17 07:49 240 MG Thiamine HCl (Vitamin B-1 Tab) 100 mg QAM PO 03/01/17 08:00 03/31/17 07:59 03/04/17 07:48 100 MG Folic Acid (Folvite Tab) 1 mg QAM PO 03/01/17 08:00 03/31/17 07:59 03/04/17 07:48 1 MG Polyethylene 17 gm 17 gm DAILY PO 03/01/17 08:00 03/31/17 07:59 03/04/17 07:49 17 GM Ciprofloxacin/ Dextrose 400 mg/ Prmx 200 ml @ 100 mls/hr Q12H IV 03/02/17 16:00 03/09/17 15:59 03/04/17 04:59 100 MLS/HR Metronidazole/Prmx (Flagyl / Nss/ Premixed Nss) 100 ml @ 100 mls/hr Q8H IV 03/02/17 16:00 03/09/17 15:59 03/04/17 07:46 100 MLS/HR Oxycodone/ Acetaminophen (Percocet 7.5-325MG Tab) 1 tab Q4H PRN PO 03/03/17 20:30 03/17/17 20:29 03/04/17 05:40 1 TAB Impression (1) Acute kidney injury (2) Hyponatremia (3) Hypertension (4) Partial small bowel obstruction Mr. Mitchell is a 61-year-old male hypertension, chronic back pain and alcohol abuse. He has acute renal insufficiency and accelerated hypertension. Blood pressure at home treated with lisinopril. Mr. Mitchell has not regularly had his blood pressure monitored and has not had routine follow up with any PCP. He notes significant NSAID use on a regular basis. He was using naproxen and indomethacin chronically. He was on lisinopril 40 milligram p.o. daily for hypertension which is on hold since admission. He presented with lower abdominal pain in the setting of significant opiate use. Imaging now reveals a cecal perforation. CT abdomen pelvis on admission showed partial SBO. There is no prior history of chronic kidney disease reported, last creatinine was 1.3 in January 2016. On admission, creatinine was 3.4. Creatinine continues to improve. Urinalysis initially was positive for low grade proteinuria and microscopic hematuria; repeat UA was negative for proteinuria or hematuria. Acute kidney injury appears to be hemodynamically mediated with concomitant use of CARLOS-inhibitor and NSAIDs. He is non oliguric. Hyponatremia persists consistent with poor solute intake. This has been attributed to increased free water intake and excessive alcohol intake with decrease free water clearance. Serum sodium had initially improved with NSS. Sodium stable this morning. Clonidine, amlodipine, metoprolol tartrate, hydralazine and diltiazem have all been added since admission for blood pressure control. Recommendations -- Blood pressure and volume status currently appropriate -- Sodium acceptable -- Continue fluid restriction of 1.5 L/d -- Continue clonidine 0.2 mg patch -- Continue amlodipine 10 mg daily -- Continue metoprolol, diltiazem and hydralazine as prescribed -- Will continue to monitor daily labs and remain available with questions or concerns
[2017-03-04] MEDS ORDERED: NURSING VERBAL MED ORDER ONE ×3 (13:00→19:15)
[2017-03-04 13:03] VITALS: BP 143/77; PULSE 60
--- NOTE | 2017-03-04 13:51 | Surgery Progress Note ---
Surgery Progress Note Date of Service Mar 04, 2017. Subjective + feeling well pt is doing better, he tolerated full liquid diet, no N/V, no fever, passed BM yesterday, Objective Vital Signs: Date Time Temp Pulse Resp B/P Pulse Ox O2 Delivery O2 Flow Rate FiO2 03/04/17 13:03 60 143/77 03/04/17 08:03 36.6 56 18 122/78 93 Room Air 03/04/17 07:50 Room Air 03/04/17 00:20 Room Air 03/03/17 23:25 36.6 61 16 104/67 96 Room Air 03/03/17 19:00 96 Room Air 03/03/17 16:46 Room Air 03/03/17 16:01 36.9 65 18 122/76 96 Room Air General Appearance: WD/WN Head: normocephalic Neck: supple, no JVD Respiratory/Chest: chest non-tender, lungs clear Cardiovascular: regular rate, rhythm, no edema, no JVD Abdomen: normal bowel sounds, non tender, soft, + tenderness Extremities: normal range of motion, non-tender, normal inspection Laboratory Results: Results Past 24 Hours Test 03/04/17 05:36 03/04/17 10:26 Range/Units Sodium Level 135 136-145 mmol/L Potassium Level 4.6 3.5-5.1 mmol/L Chloride Level 99 98-107 mmol/L Carbon Dioxide Level 28 21-32 mmol/L Anion Gap 8.0 3-11 mmol/L Blood Urea Nitrogen 34 7-18 mg/dl Creatinine 2.50 0.60-1.40 mg/dl Est Creatinine Clear Calc Drug Dose 31.8 ml/min Estimated GFR () 31.0 Estimated GFR (Non- 26.7 BUN/Creatinine Ratio 13.7 10-20 Random Glucose 113 70-99 mg/dl Calcium Level 8.9 8.5-10.1 mg/dl Urine Osmolality 340 500-800 mOms/kg Assessment & Plan IMP: contained cecal perforation, no abscess, no free perforation Plan: I recommend to do conservative treatment now, I Discussed with pt about treatment options, pt understood, IV antibiotic, repeat labs in am,will F/U full liquid diet repeta CBc in AM, march D/C home tomorrow, will F/U. IMP: contained cecal perforation, no abscess, no free perforation Plan: I recommend to do conservative treatment now, I Discussed with pt about treatment options, pt understood, IV antibiotic, repeat labs in am,will F/U
[2017-03-04 16:00] VITALS: O2SAT 96
[2017-03-04 16:03] VITALS: BP 110/68; PULSE 59; TEMP 36.6; O2SAT 96
[2017-03-04] MEDS: ALLOPURINOL 100 MG TAB PO PRN (19:45)
[2017-03-04 19:52] VITALS: PULSE 62
--- NOTE | 2017-03-04 19:56 | Hospitalist Progress Note ---
Hospitalist Progress Note Date of Service Mar 04, 2017. Subjective patient with gout complaints abdominal pain is good Objective Vital Signs Date Time Temp Pulse Resp B/P Pulse Ox O2 Delivery O2 Flow Rate FiO2 03/04/17 16:03 36.6 59 18 110/68 96 Room Air 03/04/17 16:00 96 Room Air 03/04/17 13:03 60 143/77 03/04/17 08:03 36.6 56 18 122/78 93 Room Air 03/04/17 07:50 Room Air 03/04/17 00:20 Room Air 03/03/17 23:25 36.6 61 16 104/67 96 Room Air Physical Exam General Appearance: WD/WN, no apparent distress Eyes: normal inspection ENT: hearing grossly normal Respiratory/Chest: lungs clear Cardiovascular: regular rate, rhythm Abdomen: normal bowel sounds Extremities: normal range of motion Laboratory Results Last 24 Hours Test 03/04/17 05:36 03/04/17 10:26 Sodium Level 135 mmol/L Potassium Level 4.6 mmol/L Chloride Level 99 mmol/L Carbon Dioxide Level 28 mmol/L Anion Gap 8.0 mmol/L Blood Urea Nitrogen 34 mg/dl Creatinine 2.50 mg/dl Est Creatinine Clear Calc Drug Dose 31.8 ml/min Estimated GFR () 31.0 Estimated GFR (Non- 26.7 BUN/Creatinine Ratio 13.7 Random Glucose 113 mg/dl Calcium Level 8.9 mg/dl Urine Osmolality 340 mOms/kg Assessment and Plan (1) Rupture of bowel Assessment & Plan: patient without complaints clinically stable continue IV cipro flagyl (2) Acute renal failure Assessment & Plan: nsaids prior to admission contributed to his acute renal failure Problem Qualifiers (1) Acute renal failure: Acute renal failure type: unspecified Qualified Codes: N17.9 - Acute kidney failure, unspecified
[2017-03-05] VITALS: BP 123/64; PULSE 66; TEMP 36.7; O2SAT 97
[2017-03-05] MEDS: CHECK CLONIDINE PATCH PLACEMENT SCH ×3 (00:48→15:37)
[2017-03-05] MEDS: IPRATROPIUM BROMIDE NEB SOLN 0.02% 2.5 ML VIAL INH SCH ×2 (01:47→09:00)
[2017-03-05] MEDS: LEVALBUTEROL 1.25MG/0.5ML NEB INH SCH ×2 (01:48→09:00)
[2017-03-05] MEDS: CIPROFLOXACIN / D5W 400 MG in PREMIXED IN D5W 200 ML IV SCH ×2 (05:26→17:00)
[2017-03-05] MEDS: OXYCODONE HCL IR 5 MG TAB (IMMEDIATE RELEASE) PO PRN ×2 (05:32→22:41)
[2017-03-05 06:56] LABS: BASO % 0.2 %; BASO ABS # 0.02 K/uL (0-0.2); COMPLETE YES; EOS % 1.3 %; HEMATOCRIT 32.9 % (42-52); IG% 0.6 %; LYMPH ABS # 1.72 K/uL (1.2-3.4); MEAN CELL VOLUME 88.9 fL (80-100); MEAN CORPUSCULAR HGB CONC 33.7 g/dl (32-36); MEAN PLATELET VOLUME 9.9 fL (7.4-10.4); MONO % 9.5 %; NEUT % 72.4 %; PLATELET COUNT 312 K/uL (130-400); WHITE BLOOD COUNT 10.75 K/uL (4.8-10.8)
[2017-03-05 07:25] LABS: BUN/CREATININE RATIO 13.6 (10-20); CALCIUM 8.8 mg/dl (8.5-10.1); CREATININE 2.4 mg/dl (0.60-1.40); POTASSIUM 4.9 mmol/L (3.5-5.1)
[2017-03-05 08:05] VITALS: BP 103/57; PULSE 63; TEMP 36.7; O2SAT 95
[2017-03-05] MEDS: METRONIDAZOLE / NSS 500 MG in PREMIXED NSS 100 ML IV SCH ×2 (10:02→15:36)
[2017-03-05] MEDS: PANTOprazole INJ 40 MG in SYRINGE 0 ML IV SCH (10:07)
[2017-03-05] MEDS: ALLOPURINOL 100 MG TAB PO PRN (10:07)
[2017-03-05] MEDS: OXYCODONE/ACETAMINOPHEN 7.5-325 TAB PO PRN ×2 (10:07→15:42)
[2017-03-05] MEDS: THIAMINE HCL 100 MG TAB PO SCH (10:08)
[2017-03-05] MEDS: AMLODIPINE BESYLATE 5 MG TAB PO SCH (10:08)
[2017-03-05] MEDS: DOCUSATE SODIUM 100 MG CAP PO SCH ×2 (10:08→19:18)
[2017-03-05] MEDS: POLYETHYLENE (MIRALAX) 17 GM PACK PO SCH (10:08)
[2017-03-05] MEDS: METOPROLOL SUCC 50MG EXT REL TAB PO SCH ×2 (10:08→19:19)
[2017-03-05] MEDS: DILTIAZEM HCL 240 MG CAPCR PO SCH (10:09)
[2017-03-05] MEDS: MULTIVITAMIN TAB PO SCH (10:09)
--- NOTE | 2017-03-05 10:50 | Surgery Progress Note ---
Surgery Progress Note Date of Service Mar 05, 2017. Subjective Post OP Day: HD #8 + diet (Full liquids, had some bloating after cream of wheat), + flatus, + pain controlled, No SOB, No bowel movement, No chest pain, No nausea, No vomiting Objective Vital Signs: Date Time Temp Pulse Resp B/P Pulse Ox O2 Delivery O2 Flow Rate FiO2 03/05/17 10:00 Room Air 03/05/17 08:05 36.7 63 18 103/57 95 Room Air 03/05/17 00:00 Room Air 03/05/17 00:00 36.7 66 16 123/64 97 Room Air 03/04/17 19:52 62 03/04/17 16:03 36.6 59 18 110/68 96 Room Air 03/04/17 16:00 96 Room Air 03/04/17 13:03 60 143/77 General Appearance: WD/WN, no apparent distress Head: normocephalic, atraumatic Neck: trachea midline Respiratory/Chest: lungs clear, normal breath sounds, no respiratory distress, no accessory muscle use Cardiovascular: regular rate, rhythm Abdomen: non distended, soft, + tenderness (RLQ and RUQ , no guarding or rigidity) Laboratory Results: Results Past 24 Hours Test 03/05/17 06:21 Range/Units White Blood Count 10.75 4.8-10.8 K/uL Red Blood Count 3.70 4.7-6.1 M/uL Hemoglobin 11.1 14.0-18.0 g/dL Hematocrit 32.9 42-52 % Mean Corpuscular Volume 88.9 80-100 fL Mean Corpuscular Hemoglobin 30.0 25-34 pg Mean Corpuscular Hemoglobin Concent 33.7 32-36 g/dl Platelet Count 312 130-400 K/uL Mean Platelet Volume 9.9 7.4-10.4 fL Neutrophils (%) (Auto) 72.4 % Lymphocytes (%) (Auto) 16.0 % Monocytes (%) (Auto) 9.5 % Eosinophils (%) (Auto) 1.3 % Basophils (%) (Auto) 0.2 % Neutrophils # (Auto) 7.79 1.4-6.5 K/uL Lymphocytes # (Auto) 1.72 1.2-3.4 K/uL Monocytes # (Auto) 1.02 0.11-0.59 K/uL Eosinophils # (Auto) 0.14 0-0.5 K/uL Basophils # (Auto) 0.02 0-0.2 K/uL RDW Standard Deviation 44.5 36.4-46.3 fL RDW Coefficient of Variation 13.5 11.5-14.5 % Immature Granulocyte % (Auto) 0.6 % Immature Granulocyte # (Auto) 0.06 0.00-0.02 K/uL Sodium Level 136 136-145 mmol/L Potassium Level 4.9 3.5-5.1 mmol/L Chloride Level 101 98-107 mmol/L Carbon Dioxide Level 28 21-32 mmol/L Anion Gap 7.0 3-11 mmol/L Blood Urea Nitrogen 33 7-18 mg/dl Creatinine 2.40 0.60-1.40 mg/dl Est Creatinine Clear Calc Drug Dose 33.1 ml/min Estimated GFR () 32.5 Estimated GFR (Non- 28.1 BUN/Creatinine Ratio 13.6 10-20 Random Glucose 129 70-99 mg/dl Calcium Level 8.8 8.5-10.1 mg/dl Assessment & Plan Contained Cecal Microperforation - vitals stable - afebrile, no leukocytosis - abdominal examination with tenderness in RLQ and RUQ - passing flatus, no bowel movement since Thursday Plan: Advance diet to regular diet Continue IV antibiotics Continue current management by hospitalist and fire alarm operator will continue to follow Dr. Miles has seen and examined patient and agrees with assessment and plan.
[2017-03-05] MEDS ORDERED: NURSING VERBAL MED ORDER ONE (12:30)
--- NOTE | 2017-03-05 13:45 | Nephrology Progress Note ---
Nephrology Progress Note Date of Service Mar 05, 2017. Chief Complaint BLAKE, hyponatremia Subjective No acute events overnight. No fevers or chills. Diet slowly advanced. Notes from Dr. Miles reviewed. Mr. Mitchell has no acute complaints. Pain control reasonable. He continues to focus on how he will management once he is discharged. He denies nausea. He is voiding urine without difficulty. Review of Systems A complete review of systems was performed. Pertinent positives are noted above. All other systems are negative. Vital Signs Last 8 Hrs Date Time Temp Pulse Resp B/P Pulse Ox O2 Delivery O2 Flow Rate FiO2 03/05/17 10:00 Room Air 03/05/17 08:05 36.7 63 18 103/57 95 Room Air I & O 24-Hour Column 03/05/17 08:00 Intake Total 1599 ml Output Total 550 ml Balance 1049 ml Last Recorded Weight Weight (Kilograms): 85.300 Physical Exam General Appearance: WD/WN, no apparent distress Head: normocephalic, atraumatic Eyes: normal inspection, sclerae normal ENT: normal ENT inspection, pharynx normal Neck: supple, no JVD Respiratory/Chest: lungs clear, no respiratory distress, no accessory muscle use Cardiovascular: regular rate, rhythm, no gallop Abdomen/GI: + tenderness (improving), + distended Extremities/Musculoskelatal: normal inspection, no pedal edema Neurologic/Psych: alert, oriented x 3 Family History Patient reports no known family medical history. Social History Smokeless Tobacco Use: No Alcohol Use: socially Drug Use: none Marital Status: single Laboratory Results Past 24 Hours 03/05/17 06:21 Red Blood Count 3.70, Mean Corpuscular Volume 88.9, Mean Corpuscular Hemoglobin 30.0, Mean Corpuscular Hemoglobin Concent 33.7, Mean Platelet Volume 9.9, Neutrophils (%) (Auto) 72.4, Lymphocytes (%) (Auto) 16.0, Monocytes (%) (Auto) 9.5, Eosinophils (%) (Auto) 1.3, Basophils (%) (Auto) 0.2, Neutrophils # (Auto) 7.79, Lymphocytes # (Auto) 1.72, Monocytes # (Auto) 1.02, Eosinophils # (Auto) 0.14, Basophils # (Auto) 0.02 03/05/17 06:21 Test 03/05/17 06:21 White Blood Count 10.75 K/uL (4.8-10.8) Red Blood Count 3.70 M/uL (4.7-6.1) Hemoglobin 11.1 g/dL (14.0-18.0) Hematocrit 32.9 % (42-52) Mean Corpuscular Volume 88.9 fL (80-100) Mean Corpuscular Hemoglobin 30.0 pg (25-34) Mean Corpuscular Hemoglobin Concent 33.7 g/dl (32-36) Platelet Count 312 K/uL (130-400) Mean Platelet Volume 9.9 fL (7.4-10.4) Neutrophils (%) (Auto) 72.4 % Lymphocytes (%) (Auto) 16.0 % Monocytes (%) (Auto) 9.5 % Eosinophils (%) (Auto) 1.3 % Basophils (%) (Auto) 0.2 % Neutrophils # (Auto) 7.79 K/uL (1.4-6.5) Lymphocytes # (Auto) 1.72 K/uL (1.2-3.4) Monocytes # (Auto) 1.02 K/uL (0.11-0.59) Eosinophils # (Auto) 0.14 K/uL (0-0.5) Basophils # (Auto) 0.02 K/uL (0-0.2) RDW Standard Deviation 44.5 fL (36.4-46.3) RDW Coefficient of Variation 13.5 % (11.5-14.5) Immature Granulocyte % (Auto) 0.6 % Immature Granulocyte # (Auto) 0.06 K/uL (0.00-0.02) Anion Gap 7.0 mmol/L (3-11) Est Creatinine Clear Calc Drug Dose 33.1 ml/min Estimated GFR () 32.5 Estimated GFR (Non- 28.1 BUN/Creatinine Ratio 13.6 (10-20) Calcium Level 8.8 mg/dl (8.5-10.1) Allergies Coded Allergies: Aspirin (Verified Adverse Reaction, Severe, GI SYMPTOMS, 02/24/17) BLOOD IN STOOL (REGULAR STRENGTH ASPIRIN) Methadone (Verified Adverse Reaction, Severe, VOMITING, 02/24/17) Medications Current Inpatient Medications Medications (Trade) Dose Ordered Sig/Romana Route Start Time Stop Time Status Last Admin Dose Admin Acetaminophen (Tylenol Tab) 650 mg Q4H PRN PO 02/25/17 00:45 03/27/17 00:44 Zolpidem Tartrate (Ambien Tab) 5 mg HSZ PRN PO 02/25/17 00:45 03/27/17 00:44 Tramadol HCl (Ultram Tab) 50 mg TID PRN PO 02/25/17 00:45 03/27/17 00:44 02/25/17 01:31 50 MG Tizanidine HCl (Zanaflex Tab) 2 mg TID PRN PO 02/25/17 00:45 03/27/17 00:44 Ondansetron HCl (Zofran Inj) 4 mg Q6H PRN IV 02/25/17 00:45 03/27/17 00:44 Diphenhydramine HCl (Benadryl Inj) 25 mg Q4H PRN IV 02/25/17 00:45 03/27/17 00:44 Bisacodyl (Dulcolax Supp) 10 mg DAILY PRN [place] 02/25/17 00:45 03/27/17 00:44 02/27/17 16:36 10 MG Ipratropium [place] (Atrovent 0.02% 0.5MG/2.5ML Neb) 0.5 mg Q2H PRN INH 02/25/17 01:15 03/27/17 01:14 Levalbuterol (Xopenex 1.25MG/ 0.5ML Neb) 1.25 mg Q2H PRN INH 02/25/17 01:15 03/27/17 01:14 Indomethacin (Indocin Cap) 25 mg BID PRN PO 02/25/17 11:00 03/27/17 10:59 Future Hold Lisinopril (Zestril Tab) 40 mg QAM PO 02/26/17 09:00 03/28/17 08:59 Future Hold Hydralazine HCl (HydrALAZINE INJ) 10 mg Q6H PRN IV. 02/25/17 11:15 03/27/17 11:14 Future Hold 02/25/17 15:29 10 MG Miscellaneous Information (Check Clonidine Patch Placement) 1 ea QS N/A 02/25/17 16:00 03/27/17 15:59 03/05/17 10:09 1 EA Hydralazine HCl (Apresoline Tab) 25 mg TID PO 02/25/17 21:00 03/27/17 20:59 03/05/17 10:08 25 MG Multivitamins (Multivitamin Tab) 1 tab QAM PO 02/26/17 09:00 03/28/17 08:59 03/05/17 10:09 1 TAB Docusate Sodium (coLACE CAP) 100 mg BID PO 02/26/17 20:00 03/28/17 20:59 03/05/17 10:08 100 MG Amlodipine Besylate (Norvasc Tab) 10 mg QAM PO 02/27/17 08:00 03/29/17 07:59 03/05/17 10:08 10 MG Metoprolol Succinate (Toprol Xl Tab) 100 mg BID PO 02/27/17 08:00 03/29/17 07:59 03/05/17 10:08 100 MG Clonidine HCl ([id number]-Wfg-6 0.2mg/24hr Patch) 1 patch Q7D@1800 TD 02/27/17 18:00 03/29/17 17:59 02/27/17 20:27 1 PATCH Miscellaneous (Remove Clonidine Patch) 1 ea Q7D@1759 N/A 02/27/17 17:59 03/29/17 17:58 02/27/17 20:27 1 EA Diltiazem HCl (Cardizem Cd Cap) 240 mg QAM PO 02/28/17 08:00 03/30/17 07:59 03/05/17 10:09 240 MG Thiamine HCl (Vitamin B-1 Tab) 100 mg QAM PO 03/01/17 08:00 03/31/17 07:59 03/05/17 10:08 100 MG Polyethylene 17 gm 17 gm DAILY PO 03/01/17 08:00 03/31/17 07:59 03/05/17 10:08 17 GM Ciprofloxacin/ Dextrose 400 mg/ Prmx 200 ml @ 100 mls/hr Q12H IV 03/02/17 16:00 03/09/17 15:59 03/05/17 05:26 100 MLS/HR Metronidazole/Prmx (Flagyl / Nss/ Premixed Nss) 100 ml @ 100 mls/hr Q8H IV 03/02/17 16:00 03/09/17 15:59 03/05/17 10:02 100 MLS/HR Oxycodone/ Acetaminophen (Percocet 7.5-325MG Tab) 1 tab Q4H PRN PO 03/03/17 20:30 03/17/17 20:29 03/05/17 10:07 1 TAB Oxycodone HCl (Roxicodone Immediate Rel Tab) 7.5 mg Q4H PRN PO 03/04/17 13:45 03/18/17 13:44 03/05/17 05:32 7.5 MG Allopurinol (Zyloprim Tab) 100 mg DAILY PRN PO 03/04/17 19:30 04/03/17 19:29 03/05/17 10:07 100 MG Pantoprazole Sodium (Protonix Tab) 40 mg QAM PO 03/06/17 08:00 04/05/17 07:59 Impression (1) Acute kidney injury (2) Hyponatremia (3) Hypertension (4) Partial small bowel obstruction Mr. Mitchell is a 61-year-old male hypertension, chronic back pain and alcohol abuse. He presented with abdominal symptoms, acute renal insufficiency and accelerated hypertension. He presented with lower abdominal pain in the setting of significant opiate use. Imaging now reveals a cecal perforation. CT abdomen pelvis on admission showed partial SBO. Blood pressure at home treated with lisinopril. Accelerated blood pressure readings on admission likely partially sympathetic complicated by his dependence of alcohol and opiates. Blood pressure is improving. He did not routinely monitor BP at home. I suspect that current regimen can be adjusted. Clonidine, amlodipine, metoprolol tartrate, hydralazine and diltiazem have all been added since admission for blood pressure control. I would suggest we start by stopping diltiazem. If BP remains low, hydralazine could subsequently be stopped. Additional management of blood pressure can also be coordinated through the nephrology clinic as an outpatient. BLAKE is consistent with multifactorial ATN. Acute kidney injury appears to be hemodynamically mediated with concomitant use of CARLOS-inhibitor and NSAIDs. He was using naproxen and indomethacin chronically as well an CARLOS inhibitor. There is no prior history of chronic kidney disease reported, last creatinine was 1.3 in January 2016. On admission, creatinine was 3.4. Creatinine continues to improve. Urinalysis initially was positive for low grade proteinuria and microscopic hematuria; repeat UA was negative for proteinuria or hematuria. Hyponatremia consistent with poor solute intake. This has been attributed to increased free water intake and excessive alcohol intake with decrease free water clearance. Serum sodium had initially improved with NSS. Sodium stable this morning. Recommendations -- Blood pressure and volume status currently appropriate -- I would suggest stopping diltiazem -- If BP remains low, may stop hydralazine. If BP increases off diltiazem, increase hydralazine or metoprolol as needed. -- Continue fluid restriction of 1.5-2 L/d -- As renal function and dysnatremia improving, nephrology will sign off -- Please call with any questions or concerns -- For follow up regarding BLAKE, hyponatremia and hypotension follow up can be arranged with me in the nephrology clinic after discharge. Please have patient call [phone] to schedule.
[2017-03-05 15:13] VITALS: BP 115/72; PULSE 63; TEMP 36.8; O2SAT 97
--- NOTE | 2017-03-05 18:32 | Hospitalist Progress Note ---
Hospitalist Progress Note Date of Service Mar 05, 2017. Subjective Pt evaluation today including: conversation w/ patient patient with no current complaints still with right sided abdominal pain in general able to tolerate po Objective Vital Signs Date Time Temp Pulse Resp B/P Pulse Ox O2 Delivery O2 Flow Rate FiO2 03/05/17 15:55 Room Air 03/05/17 15:13 36.8 63 18 115/72 97 Room Air 03/05/17 10:00 Room Air 03/05/17 08:05 36.7 63 18 103/57 95 Room Air 03/05/17 00:00 Room Air 03/05/17 00:00 36.7 66 16 123/64 97 Room Air 03/04/17 19:52 62 Physical Exam General Appearance: WD/WN, no apparent distress Eyes: normal inspection ENT: hearing grossly normal Neck: trachea midline Respiratory/Chest: lungs clear Cardiovascular: regular rate, rhythm Abdomen: normal bowel sounds, soft Extremities: normal inspection Laboratory Results Last 24 Hours Test 03/05/17 06:21 03/05/17 14:30 White Blood Count 10.75 K/uL Red Blood Count 3.70 M/uL Hemoglobin 11.1 g/dL Hematocrit 32.9 % Mean Corpuscular Volume 88.9 fL Mean Corpuscular Hemoglobin 30.0 pg Mean Corpuscular Hemoglobin Concent 33.7 g/dl Platelet Count 312 K/uL Mean Platelet Volume 9.9 fL Neutrophils (%) (Auto) 72.4 % Lymphocytes (%) (Auto) 16.0 % Monocytes (%) (Auto) 9.5 % Eosinophils (%) (Auto) 1.3 % Basophils (%) (Auto) 0.2 % Neutrophils # (Auto) 7.79 K/uL Lymphocytes # (Auto) 1.72 K/uL Monocytes # (Auto) 1.02 K/uL Eosinophils # (Auto) 0.14 K/uL Basophils # (Auto) 0.02 K/uL RDW Standard Deviation 44.5 fL RDW Coefficient of Variation 13.5 % Immature Granulocyte % (Auto) 0.6 % Immature Granulocyte # (Auto) 0.06 K/uL Sodium Level 136 mmol/L Potassium Level 4.9 mmol/L Chloride Level 101 mmol/L Carbon Dioxide Level 28 mmol/L Anion Gap 7.0 mmol/L Blood Urea Nitrogen 33 mg/dl Creatinine 2.40 mg/dl Est Creatinine Clear Calc Drug Dose 33.1 ml/min Estimated GFR () 32.5 Estimated GFR (Non- 28.1 BUN/Creatinine Ratio 13.6 Random Glucose 129 mg/dl Calcium Level 8.8 mg/dl Urine Osmolality 398 mOms/kg Assessment and Plan (1) Rupture of bowel Assessment & Plan: patient responding to conservative measures. Surgery following. Contine IV antibiotics (2) Acute renal failure Discharge planning: home Problem Qualifiers (1) Acute renal failure: Acute renal failure type: unspecified Qualified Codes: N17.9 - Acute kidney failure, unspecified
[2017-03-06 00:07] VITALS: BP 122/80; PULSE 67; TEMP 36.7; O2SAT 96
[2017-03-06] MEDS: METRONIDAZOLE / NSS 500 MG in PREMIXED NSS 100 ML IV SCH ×3 (00:23→17:56)
[2017-03-06] MEDS: CHECK CLONIDINE PATCH PLACEMENT SCH ×3 (00:27→16:00)
[2017-03-06] MEDS: CIPROFLOXACIN / D5W 400 MG in PREMIXED IN D5W 200 ML IV SCH ×2 (04:02→17:57)
[2017-03-06] MEDS: OXYCODONE/ACETAMINOPHEN 7.5-325 TAB PO PRN ×4 (04:06→23:53)
[2017-03-06 06:42] LABS: HEMATOCRIT 32.3 % (42-52); MEAN CELL VOLUME 89.2 fL (80-100); MEAN CORPUSCULAR HEMOGLOBIN 30.1 pg (25-34); MEAN CORPUSCULAR HGB CONC 33.7 g/dl (32-36); PLATELET COUNT 320 K/uL (130-400); RED BLOOD COUNT 3.62 M/uL (4.7-6.1); WHITE BLOOD COUNT 8.06 K/uL (4.8-10.8)
[2017-03-06 07:22] LABS: BUN/CREATININE RATIO 16.1 (10-20); CALCIUM 8.5 mg/dl (8.5-10.1); CREATININE 2.1 mg/dl (0.60-1.40); POTASSIUM 4.3 mmol/L (3.5-5.1)
[2017-03-06] MEDS: METOPROLOL SUCC 50MG EXT REL TAB PO SCH ×2 (07:50→20:35)
[2017-03-06] MEDS: DILTIAZEM HCL 240 MG CAPCR PO SCH (07:50)
[2017-03-06] MEDS: THIAMINE HCL 100 MG TAB PO SCH (07:50)
[2017-03-06] MEDS: MULTIVITAMIN TAB PO SCH (07:50)
[2017-03-06] MEDS: PANTOprazole SOD 40 MG TAB PO SCH (07:51)
[2017-03-06] MEDS: ALLOPURINOL 100 MG TAB PO PRN (07:51)
[2017-03-06] MEDS: AMLODIPINE BESYLATE 5 MG TAB PO SCH (07:51)
[2017-03-06] MEDS: POLYETHYLENE (MIRALAX) 17 GM PACK PO SCH (07:52)
[2017-03-06] MEDS: DOCUSATE SODIUM 100 MG CAP PO SCH ×2 (07:52→20:34)
[2017-03-06 09:32] VITALS: BP 133/74; PULSE 69; TEMP 36.4; O2SAT 98
--- NOTE | 2017-03-06 10:46 | Surgery Progress Note ---
Surgery Progress Note Date of Service Mar 06, 2017. Subjective Post OP Day: HD # 9 + bowel movement, + diet (tolerated regular diet yesterday and this morning), + feeling well, + flatus, No SOB, No chest pain, No complaints, No nausea, No vomiting Objective Vital Signs: Date Time Temp Pulse Resp B/P Pulse Ox O2 Delivery O2 Flow Rate FiO2 03/06/17 09:32 36.4 69 18 133/74 98 03/06/17 08:00 Room Air 03/06/17 00:07 36.7 67 20 122/80 96 Room Air 03/06/17 00:00 Room Air 03/05/17 20:00 Room Air 03/05/17 15:55 Room Air 03/05/17 15:13 36.8 63 18 115/72 97 Room Air General Appearance: WD/WN, no apparent distress Head: normocephalic, atraumatic Neck: trachea midline Respiratory/Chest: no respiratory distress, no accessory muscle use Abdomen: soft, + distended (mildly distended but improving), + tenderness ( Right abdomen) Laboratory Results: Results Past 24 Hours Test 03/05/17 14:30 03/06/17 05:47 Range/Units Urine Osmolality 398 500-800 mOms/kg White Blood Count 8.06 4.8-10.8 K/uL Red Blood Count 3.62 4.7-6.1 M/uL Hemoglobin 10.9 14.0-18.0 g/dL Hematocrit 32.3 42-52 % Mean Corpuscular Volume 89.2 80-100 fL Mean Corpuscular Hemoglobin 30.1 25-34 pg Mean Corpuscular Hemoglobin Concent 33.7 32-36 g/dl RDW Standard Deviation 44.2 36.4-46.3 fL RDW Coefficient of Variation 13.4 11.5-14.5 % Platelet Count 320 130-400 K/uL Mean Platelet Volume 10.0 7.4-10.4 fL Sodium Level 134 136-145 mmol/L Potassium Level 4.3 3.5-5.1 mmol/L Chloride Level 101 98-107 mmol/L Carbon Dioxide Level 23 21-32 mmol/L Anion Gap 10.0 3-11 mmol/L Blood Urea Nitrogen 34 7-18 mg/dl Creatinine 2.10 0.60-1.40 mg/dl Est Creatinine Clear Calc Drug Dose 37.8 ml/min Estimated GFR () 38.2 Estimated GFR (Non- 33.0 BUN/Creatinine Ratio 16.1 10-20 Random Glucose 131 70-99 mg/dl Calcium Level 8.5 8.5-10.1 mg/dl Assessment & Plan Contained Cecal Microperforation - vitals stable - afebrile, no leukocytosis - abdominal examination with tenderness in RLQ , however much improved, soft and no distention - passing flatus and bowel movement this morning Plan: Continue regular diet Continue current management by hospitalist and garage helper No surgical indication at this time, from surgical standpoint signing off May be switched to Oral antibiotics on discharge Patient should have a total of 10-14 days of antibiotics Patient to follow-up with Dr. Miles in 1-2 weeks Thank you for consultation and involving us in the care of this patient Dr. Miles has seen and examined patient, agrees with assessment and plan.
[2017-03-06 16:17] VITALS: BP 130/76; PULSE 73; TEMP 36.6; O2SAT 96
[2017-03-06] MEDS: CLONIDINE HCL 0.2 MG/24 HR TRANSDERM SYS TD SCH (18:03)
[2017-03-06 20:32] VITALS: BP 130/77; PULSE 70
--- NOTE | 2017-03-06 20:43 | Hospitalist Progress Note ---
Hospitalist Progress Note Date of Service Mar 06, 2017. Subjective Pt evaluation today including: conversation w/ patient patient with improved symptoms went for a walk outside today Objective Vital Signs Date Time Temp Pulse Resp B/P Pulse Ox O2 Delivery O2 Flow Rate FiO2 03/06/17 20:32 70 130/77 03/06/17 16:17 36.6 73 18 130/76 96 Room Air 03/06/17 16:00 Room Air 03/06/17 09:32 36.4 69 18 133/74 98 03/06/17 08:00 Room Air 03/06/17 00:07 36.7 67 20 122/80 96 Room Air 03/06/17 00:00 Room Air Physical Exam General Appearance: no apparent distress Eyes: normal inspection Respiratory/Chest: chest non-tender Cardiovascular: regular rate, rhythm Abdomen: normal bowel sounds Extremities: normal range of motion Laboratory Results Last 24 Hours Test 03/06/17 05:47 White Blood Count 8.06 K/uL Red Blood Count 3.62 M/uL Hemoglobin 10.9 g/dL Hematocrit 32.3 % Mean Corpuscular Volume 89.2 fL Mean Corpuscular Hemoglobin 30.1 pg Mean Corpuscular Hemoglobin Concent 33.7 g/dl RDW Standard Deviation 44.2 fL RDW Coefficient of Variation 13.4 % Platelet Count 320 K/uL Mean Platelet Volume 10.0 fL Sodium Level 134 mmol/L Potassium Level 4.3 mmol/L Chloride Level 101 mmol/L Carbon Dioxide Level 23 mmol/L Anion Gap 10.0 mmol/L Blood Urea Nitrogen 34 mg/dl Creatinine 2.10 mg/dl Est Creatinine Clear Calc Drug Dose 37.8 ml/min Estimated GFR () 38.2 Estimated GFR (Non- 33.0 BUN/Creatinine Ratio 16.1 Random Glucose 131 mg/dl Calcium Level 8.5 mg/dl Assessment and Plan (1) Rupture of bowel Assessment & Plan: will change to oral antibiotics and discharge to home on (2) Acute renal failure Assessment & Plan: improving on a daily basis Problem Qualifiers (1) Acute renal failure: Acute renal failure type: unspecified Qualified Codes: N17.9 - Acute kidney failure, unspecified
[2017-03-06 23:56] VITALS: BP 121/76; PULSE 65; TEMP 36.7; O2SAT 97
[2017-03-07] MEDS: CHECK CLONIDINE PATCH PLACEMENT SCH ×2 (00:03→08:17)
[2017-03-07] MEDS: METRONIDAZOLE / NSS 500 MG in PREMIXED NSS 100 ML IV SCH ×2 (00:03→08:17)
[2017-03-07] MEDS: OXYCODONE HCL IR 5 MG TAB (IMMEDIATE RELEASE) PO PRN (04:14)
[2017-03-07] MEDS: CIPROFLOXACIN / D5W 400 MG in PREMIXED IN D5W 200 ML IV SCH (04:14)
[2017-03-07 06:44] LABS: BUN/CREATININE RATIO 16.6 (10-20); CALCIUM 8.6 mg/dl (8.5-10.1); CREATININE 1.9 mg/dl (0.60-1.40); POTASSIUM 4.2 mmol/L (3.5-5.1)
[2017-03-07 07:58] VITALS: BP 118/75; PULSE 63; TEMP 36.5; O2SAT 97
[2017-03-07] MEDS: DOCUSATE SODIUM 100 MG CAP PO SCH (08:00)
[2017-03-07] MEDS: POLYETHYLENE (MIRALAX) 17 GM PACK PO SCH (08:00)
[2017-03-07] MEDS: ALLOPURINOL 100 MG TAB PO PRN (08:18)
[2017-03-07] MEDS: MULTIVITAMIN TAB PO SCH (08:18)
[2017-03-07] MEDS: DILTIAZEM HCL 240 MG CAPCR PO SCH (08:18)
[2017-03-07] MEDS: PANTOprazole SOD 40 MG TAB PO SCH (08:18)
[2017-03-07] MEDS: AMLODIPINE BESYLATE 5 MG TAB PO SCH (08:18)
[2017-03-07] MEDS: THIAMINE HCL 100 MG TAB PO SCH (08:19)
[2017-03-07] MEDS: METOPROLOL SUCC 50MG EXT REL TAB PO SCH (08:19)
[2017-03-07] MEDS: OXYCODONE/ACETAMINOPHEN 7.5-325 TAB PO PRN (10:06)
[2017-03-07] MEDS ORDERED: OXYC1TAB3 PO (12:22)
[2017-03-07] MEDS ORDERED: ALLO100T57 PO (12:22)
[2017-03-07] MEDS ORDERED: CPR500 PO (12:22)
[2017-03-07] MEDS ORDERED: METR500T PO (12:22)
[2017-03-07] MEDS ORDERED: CHECK CLONIDINE (12:22)
[2017-03-07] MEDS ORDERED: SENN-65 PO (12:27)
--- NOTE | 2017-03-07 12:34 | Discharge Instructions ---
Discharge Instructions Date of Service Mar 07, 2017. Admission Reason for Admission: Acute Renal Failure, Colonic Inertia Discharge Discharge Diagnosis / Problem: Diverticulitis with micro perferation Discharge Goals Goal(s): Improve disease control Activity Recommendations Activity Limitations: as noted below Please limit your activity for the next month secondary to medical condition which may require if it were to progress other more aggressive interventions. If you have increasing abdominal pain or fever contact Dr. Miles. Once you have been cleared by Dr. Miles can you go back to normal activities. Travel at this time is not medically advisable. . Current Hospital Diet Patient's current hospital diet: Regular Diet Discharge Diet Recommended Diet: Regular Diet, Low Sodium Diet (2gm Na) Pending Studies Studies pending at discharge: no Medical Emergencies . Who to Call and When: Medical Emergencies: If at any time you feel your situation is an emergency, please call 911 immediately. . Non-Emergent Contact Non-Emergency issues call your: Primary Care Provider, Surgeon (Dr. Miles) . . "Provider Documentation" section prepared by Edgar Herndon. VTE Core Measure Inpt VTE Proph given/why not?: SCD's
--- NOTE | 2017-03-07 13:21 | Discharge Instructions ---
Discharge Instructions Date of Service Mar 07, 2017. Admission Reason for Admission: Acute Renal Failure, Colonic Inertia Discharge Discharge Diagnosis / Problem: Microperferation of cecum acute renal failure Discharge Goals Goal(s): Improve function, Improve disease control Activity Recommendations Activity Limitations: as noted below Do not travel for the next month secondary to the possibility that your cecal perforation and renal failure may worsen without your knowledge. Avoid NSAIDS because of your renal failure. Do not take Lisinopril because of your renal failure. You may be cleared for travel by a physician in 30 days. . Instructions / Follow-Up Instructions / Follow-Up Dr. Miles in 1 - 2 weeks Obtain primary care physician to adjust bp mediations and follow blood work Call [facility] for follow appointment with Dr. Qiu. [phone] Current Hospital Diet Patient's current hospital diet: Regular Diet Discharge Diet Recommended Diet: Low Sodium Diet (2gm Na) (high fiber avoid seeds and nuts) Pending Studies Studies pending at discharge: no Medical Emergencies . Who to Call and When: Medical Emergencies: If at any time you feel your situation is an emergency, please call 911 immediately. . Non-Emergent Contact Non-Emergency issues call your: Surgeon (Dr. Miles) . . "Provider Documentation" section prepared by Edgar Herndon. VTE Core Measure Inpt VTE Proph given/why not?: SCD's
[2017-03-07 13:33] VITALS: BP 118/75; PULSE 63; TEMP 36.5; O2SAT 97
[2017-03-07] MEDS ORDERED: CRDCD240 PO (14:13)
[2017-03-07] MEDS ORDERED: TPRSR50 PO (14:13)
[2017-03-07] MEDS ORDERED: APR25 PO (14:13)
[2017-03-07] MEDS ORDERED: NRV5 PO (14:13)
[2017-03-07] MEDS ORDERED: CLON0.1D5 TD (14:13)
--- NOTE | 2017-03-17 15:15 | DISCHARGE SUMMARY ---
Please see dictated H\T\P for full details of his presentation. The patient is a 61-year-old who came in complaining of severe lower abdominal pain and suprapubic pain, and last bowel movement was 2 days prior to admission. He also was taking significant amount of Naprosyn with Percocet for shoulder pain. He was discovered to have acute renal failure with a creatinine of 3.30 and possibility of partial distal small bowel obstruction on chest/abdomen x-ray. CT showed moderate distention at proximal cecal to mid transverse colon, which might represent a nonobstructive colonic ileus. He also had signs of right lower lobe pneumonia on chest x-ray. He was brought in and placed on Rocephin and Zithromax. For his nonobstructive colonic ileus, he received Fleet enemas and hydration and for his acute renal insufficiency, he received hydration with discontinuation of NSAIDs. Dr. Rosenberg was consulted for nephrology. He had been on lisinopril and NSAIDs. She recommended to increase amlodipine to 10 mg daily, starting metoprolol 50 twice a day and avoiding further IV fluids, monitor his renal function daily. She also advised to limit alcohol intake and dose medications for GFR less than 30. Surgery saw the patient and he believed that he had contained cecal perforation with no abscess and no free perforation. Recommended conservative therapy with IV antibiotic. The patient did well with conservative management and was discharged home on oral antibiotics. Please see dictated H\T\P for full details of the medications he was discharged home on. He will follow up with Dr. Miles as an outpatient and Dr. Rosenberg, his primary care doctor in 1 week. He was instructed to avoid NSAIDs and to not take lisinopril. All cultures were negative to date. His white count was 8 on the 14th and his creatinine continued to improve and on 15th, it was 1.9, trending downward. Time spent in review of the chart, discussion with patient on the date of discharge is 31 minutes. [facility]
[2017-04-15] MEDS ORDERED: AMLO-114 PO (11:07)
[2017-05-08] MEDS ORDERED: LISI40TA PO (11:09)
[2017-05-08] MEDS ORDERED: CLON0.1D5 TD (11:09)
== END 2017-03-07 15:35 | disposition home or self-care (01) | DRG 682 ==
LOC: ENRESERVTM → ENRESERVDT → C.EDB 19:32 → C.2T 02-25 00:37 → C.4E 02-26 14:45
PROVIDERS: ADMIT Hospitalist; ATTEND Hospitalist
DX: N17.9 Acute kidney failure, unspecified (principal); K35.2 Acute appendicitis with generalized peritonitis; J18.1 Lobar pneumonia, unspecified organism; K56.7 Ileus, unspecified; E87.1 Hypo-osmolality and hyponatremia; I25.10 Atherosclerotic heart disease of native coronary artery without angina pectoris; I10 Essential (primary) hypertension; M10.9 Gout, unspecified; N18.9 Chronic kidney disease, unspecified; K59.00 Constipation, unspecified; Z79.899 Other long term (current) drug therapy

== ENCOUNTER → 2017-04-09 | Outpatient (CLI) | payer OTHER ==
[~2017-04-09] MED LIST changes: +AMLO-114 PO; +APR25 PO; +CHECK CLONIDINE; +CLON0.1D5 TD; +CPR500 PO; +CRDCD240 PO; -INDO-22 PO; -LISI-794 PO; +LISI40TA PO; +NRV5 PO; +OXYC1TAB3 PO; +TPRSR50 PO
[2017-04-09 12:30] LABS: CALCIUM 9.4 mg/dl (8.5-10.1)
[2017-04-09 13:00] LABS: BLOOD UREA NITROGEN 17 mg/dl (7-18); BUN/CREATININE RATIO 12.8 (10-20); CARBON DIOXIDE 27 mmol/L (21-32); CHLORIDE 100 mmol/L (98-107); GLUCOSE 98 mg/dl (70-99); MAGNESIUM 2.3 mg/dl (1.8-2.4); POTASSIUM 4.2 mmol/L (3.5-5.1); SODIUM 137 mmol/L (136-145)
[2017-04-09 13:01] LABS: PHOSPHORUS 3.9 mg/dl (2.5-4.9)
[2017-04-09 13:07] LABS: URINE APPEARANCE CLEAR (CLEAR); URINE BILIRUBIN NEG (NEG); URINE COLOR YELLOW; URINE NITRITE NEG (NEG); URINE SPECIFIC GRAVITY 1.015 (1.000-1.030); UROBILINOGEN NEG (NEG); ZZUR CULT IF INDIC CLEAN CATCH NO
[2017-04-09 13:14] LABS: MANUAL MICROSCOPIC REQUIRED? NO; REVIEW REQ? NO
== END | disposition home or self-care (01) ==
LOC: C.LAB1850 11:18
PROVIDERS: ATTEND Internal Medicine Nephrology
DX: N17.9 Acute kidney failure, unspecified (principal)

== ENCOUNTER → 2017-04-30 | Day surgery (SDC) | payer OTHER ==
[2017-04-15 11:08] VITALS: Ht 167.6 cm; Wt 82.3 kg
[~2017-04-30] VITALS: Ht 167.6 cm; Wt 82.3 kg
[~2017-04-30] MED LIST changes: -APR25 PO; -CHECK CLONIDINE; -CPR500 PO; -CRDCD240 PO; +IOPAMIDOL INJ 61% 15 ML VIAL ONE; +LIDOCAINE HCL 1% MPF 5 ML VIAL ONE; -NRV5 PO; +SODIUM CHLORIDE 0.9% INJ 10 ML VIAL ONE; -TPRSR50 PO
--- NOTE | 2017-04-30 13:30 | Discharge Instructions ---
Discharge Instructions Date of Service Apr 30, 2017. Visit Reason for Visit: Lumbar Radiculopathy Discharge Discharge Diagnosis / Problem: right leg pain Discharge Goals Goal(s): Decrease discomfort, Improve function Activity Recommendations Activity Limitations: resume your previous activity Anesthesia . Post Anesthesia Instructions: If you have had General Anesthesia or IV Sedation: * Do not drive today. * Resume driving when surgeon permits. * Do not make important decisions or sign legal documents today. * Call surgeon for: 1. Temperature elevations greater than 101 degrees F. 2. Uncontrollable pain. 3. Excessive bleeding. 4. Persistent nausea and vomiting. 5. Medication intolerance (nausea, vomiting or rash). * For nausea and vomiting use only clear liquids such as: tea, soda, bouillon until nausea subsides, then gradually increase diet as tolerated. * If you have any concerns or questions, call your surgeon's office. If physician is unavailable and it is an emergency, call 911 or go to the nearest emergency room. . Diet Recommendations Recommended Home Diet: resume previous diet Procedures Procedures Performed: Lumbar Epidural Steroid Injection Pending Studies Studies pending at discharge: no Medical Emergencies . Who to Call and When: Medical Emergencies: If at any time you feel your situation is an emergency, please call 911 immediately. . Non-Emergent Contact Non-Emergency issues call your: Specialist . . "Provider Documentation" section prepared by Emigdio Pierre. .
[2017-04-30 13:38] VITALS: BP 159/92; PULSE 80; TEMP 37.1; O2SAT 99
--- NOTE | 2017-04-30 16:05 | OPERATIVE REPORT ---
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 POSTOPERATIVE DIAGNOSES: Same. PROCEDURE: Right paramedian L4-L5 interlaminar epidural steroid injection under fluoroscopic guidance. INDICATIONS: The patient is a 61-year-old male who underwent an epidural injection with about 60% relief for a number of weeks. He reports that his pain has come back and is problematic to him and functionally limiting. He wishes to do another epidural injection to provide him with relief of ongoing radicular pain. PHYSICAL EXAMINATION: Pleasant male seated comfortably. He had no focal weakness of the lower extremities. Negative seated straight leg raises. CONSENT: Verbal and written consent was obtained from the patient. Risks and benefits were reviewed. Risks include but are not limited to epidural abscess, epidural hematoma, allergic reaction, dural puncture. The patient wishes to proceed. DESCRIPTION OF PROCEDURE: The patient was taken back to the special procedures room of the [facility] where he was maintained in a prone position. Backside was cleansed with Betadine x3 and a dry sterile dressing was applied. Fluoroscope was used to identify the L4-L5 interlaminar space. Overlying skin on the right side was anesthetized with 4 mL of lidocaine 1% with a 25 gauge 1.5-inch needle. A 22-gauge 3-1/2 inch Tuohy needle was then directed down towards the interlaminar space. It was advanced under lateral fluoroscopic guidance and loss of resistance was noted at a depth of 6 cm. Isovue-300 contrast 1 mL was injected which demonstrated epidural uptake pattern which was confirmed with both AP and lateral views. He then underwent injection after negative aspiration of 40 mg of Depo-Medrol and 4 mL of preservative-free sodium chloride. Injection was well tolerated. DISPOSITION: 1. The patient is taken out into the discharge recovery area where he will be discharged to home once discharge criteria have been met. 2. Follow up in the [facility] office in 2-4 weeks. I attest to the content of the Intraoperative Record and any orders documented therein. Any exception s are noted below.
== END | disposition home or self-care (01) ==
LOC: X.SURG 12:20
PROVIDERS: ATTEND Physical Medicine & Rehabilitation
DX: M48.06 Spinal stenosis, lumbar region (principal); E88.2 Lipomatosis, not elsewhere classified

== ENCOUNTER → 2017-05-11 | Day surgery (SDC) | payer OTHER ==
[2017-05-08 11:17] VITALS: Ht 167.6 cm; Wt 83.2 kg
[~2017-05-11] VITALS: Ht 167.6 cm; Wt 83.2 kg
[~2017-05-11] MED LIST changes: -AMLO-114 PO; +ATROPINE SULFATE 0.1 MG/ML 5ML SYR IV PRN; +BENZOCAIN/TETRACA/BUTAM SPRAY 200 APPLN/20 GM SPRY ONE; +EpHEDrine SULFATE INJ 50 MG/ML AMP IV PRN; +HydrALAZINE HCL 20 MG/ML VIAL IV. STA; -IOPAMIDOL INJ 61% 15 ML VIAL ONE; -LIDOCAINE HCL 1% MPF 5 ML VIAL ONE; +LIDOCAINE HCL 2% 2 ML VIAL (20MG/ML) ONE; +PROPOFOL IV EMULSION 10 MG/ML 20 ML VIAL IV ONE; +SODIUM CHLORIDE 0.9% 500ML 500 ML IV ONE; -SODIUM CHLORIDE 0.9% INJ 10 ML VIAL ONE
[2017-05-11 10:52] VITALS: TEMP 36.6
--- NOTE | 2017-05-11 11:11 | Endo History and Physical ---
History & Physical Date of Service: May 11, 2017. Chief Complaint: chronic RUQ pain Referring Physician: Dr. Florian Manjarrez History of Present Illness 61 yo CM who presents for EGD secondary to chronic RUQ abdominal pain. Past Surgical History Hx Cardiac Surgery: Yes (HEART CATH-NO STENTS) Hx Internal Defibrillator: No Hx Pacemaker: No Hx Abdominal Surgery: Yes (L/R INGUINAL HERNIA REPAIR) Hx Post-Op Nausea and Vomiting: No Hx Cancer Surgery: No Hx Thoracic Surgery: No Hx Orthopedic: Yes (RT ELBOW, RT SHOULDER, RT KNEE SCOPE, L/R TARSAL TUNNEL REPAIR) Hx Urinary Tract Surgery: No Family History None Social History Smoking Status: Never Smoker Hx Substance Use: No Allergies Coded Allergies: Aspirin (Verified Adverse Reaction, Severe, GI SYMPTOMS, 05/11/17) BLOOD IN STOOL (REGULAR STRENGTH ASPIRIN) Methadone (Verified Adverse Reaction, Severe, VOMITING, 05/11/17) Current Medications Reported Home Medications Medications Dose Route/Sig Max Daily Dose Days Date Category Dose Instructions Catapres-Tts (Clonidine Hcl) 0.1 Mg/24 Hr Dis 1 Patch TD WK 05/08/17 Reported Zestril (Lisinopril) 40 Mg Tab 40 Mg PO HS 05/08/17 Reported Roxicodone Ir (Oxycodone HCl) 5 Mg Tab 1-2 Tab PO Q4H PRN 03/07/17 Rx Zyloprim (Allopurinol) 100 Mg Tab 100 Tab PO DAILY PRN 30 03/07/17 Rx Ultram (Tramadol Hcl) 50 Mg Tab 100 Tabs PO TID PRN 01/14/17 Reported PRN PAIN Zanaflex (Tizanidine HCl) 4 Mg Cap 2 Tab PO HS PRN 08/28/16 Reported Vital Signs Weight (Kilograms): 83.18 Height (Feet): 5 Height (Inches): 6 Date Time Temp Pulse Resp B/P (MAP) Pulse Ox O2 Delivery O2 Flow Rate FiO2 05/11/17 10:52 36.6 71 20 145/83 (103) 96 Room Air Physical Exam General Appearance: WD/WN, no apparent distress Respiratory/Chest: Auscultation: breath sounds normal Cardiovascular: Heart Auscultation: RRR Abdomen: Bowel Sounds: normal Inspection & Palpation: soft, non-distended, no tenderness, guarding & rebound Assessment and Plan Assessment: 61 yo CM who presents for EGD secondary to chronic RUQ abdominal pain. Plan: Proceed with EGD.
--- NOTE | 2017-05-11 11:30 | Discharge Instructions ---
Endoscopy Patient Instructions Date / Procedure(s) Performed May 11, 2017. EGD Allergy Information Coded Allergies: Aspirin (Verified Adverse Reaction, Severe, GI SYMPTOMS, 05/11/17) BLOOD IN STOOL (REGULAR STRENGTH ASPIRIN) Methadone (Verified Adverse Reaction, Severe, VOMITING, 05/11/17) Discharge Date / Findings May 11, 2017. Erosive gastritis s/p biopsies Medication Instructions 1) Start Protonix 40mg by mouth each morning 1/2 hour prior to breakfast. 2) Resume medications today as prescribed Reported Home Medications Medications Dose Route/Sig Max Daily Dose Days Date Category Dose Instructions Catapres-Tts (Clonidine Hcl) 0.1 Mg/24 Hr Dis 1 Patch TD WK 05/08/17 Reported Zestril (Lisinopril) 40 Mg Tab 40 Mg PO HS 05/08/17 Reported Roxicodone Ir (Oxycodone HCl) 5 Mg Tab 1-2 Tab PO Q4H PRN 03/07/17 Rx Zyloprim (Allopurinol) 100 Mg Tab 100 Tab PO DAILY PRN 30 03/07/17 Rx Ultram (Tramadol Hcl) 50 Mg Tab 100 Tabs PO TID PRN 01/14/17 Reported PRN PAIN Zanaflex (Tizanidine HCl) 4 Mg Cap 2 Tab PO HS PRN 08/28/16 Reported Provider Instructions Activity Restrictions - No exercising or heavy lifting for 24 hours. - Do not drink alcohol the day of the procedure. - Do not drive a car or operate machinery until the day after the procedure. - Do not make any important decisions or sign important papers in 24 hours after the procedure. Following Day: - Return to full activity which may include returning to work/school. Diet Start your diet with liquids and light foods (jello, soup, juice, toast). Then eat your usual diet if not nauseated. Treatment For Common After Affects For mild abdominal pain, bloating, or excessive gas: - Rest - Eat lightly - Lie on right side Follow-Up Information Follow-up with Dr. Florian Manjarrez as scheduled Anesthesia Information What You Should Know You have had a procedure that required some medicine to reduce anxiety and discomfort. This treatment is called moderate sedation. After receiving the treatment, you may be sleepy, but you will be able to breathe on your own. The effects of the treatment may last for several hours. Follow these instructions along with Activity/Diet recommendations noted above: * Do NOT do anything where dizziness or clumsiness would be dangerous. * Rest quietly at home today, then you can be up and about tomorrow. * Have a responsible person stay with you the rest of today. * You may have had an I.V. today. If so, you may take the dressing off later today. Recommendations Call your doctor if: * Trouble breathing * Continuous vomiting for more than 24 hours * Temperature above 101 degrees * Severe abdominal pain or bloating * Pain not relieved by pain medicine ordered * There is increased drainage or redness from any incision * A large amount of rectal bleeding greater than 2-3 tablespoons. (If you had a polyp/s removed or have hemorrhoids, a small amount of blood - from the rectum is to be expected.) * You have any unanswered questions or concerns. IN THE EVENT OF A SERIOUS EMERGENCY, GO TO THE NEAREST EMERGENCY ROOM Your discharge instructions were prepared by provider Marcos Moreland. Patient Instructions Signature Page Selvin Mitchell Patient (or Guardian) Signature/Date: I have read and understand the instructions given to me by my caregivers. Caregiver/RN/Doctor Signature/Date: The above-named patient and/or guardian has received patient instructions on this date. + Original Patient Signature Page (only) stays with chart. Please make copy for patient.
--- NOTE | 2017-05-11 11:30 | GI REPORT ---
Procedure Date: 05/11/2017 11:13 AM Procedure: Upper GI endoscopy Indications: Abdominal pain in the right upper quadrant Medicines: Monitored Anesthesia Care Complications: No immediate complications. Estimated Blood Loss: Estimated blood loss: none. Procedure: Pre-Anesthesia Assessment: - Prior to the procedure, a History and Physical was performed, and patient medications and allergies were reviewed. The patient's tolerance of previous anesthesia was also reviewed. The risks and benefits of the procedure and the sedation options and risks were discussed with the patient. All questions were answered, and informed consent was obtained. Prior Anticoagulants: The patient has taken no previous anticoagulant or antiplatelet agents. ASA Grade Assessment: III - A patient with severe systemic disease. After reviewing the risks and benefits, the patient was deemed in satisfactory condition to undergo the procedure. After obtaining informed consent, the endoscope was passed under direct vision. Throughout the procedure, the patient's blood pressure, pulse, and oxygen saturations were monitored continuously. The On-site loaner was introduced through the mouth, and advanced to the second part of duodenum. The upper GI endoscopy was accomplished without difficulty. The patient tolerated the procedure well. Findings: The examined esophagus was normal. Localized moderate inflammation characterized by erosions was found in the gastric antrum. Biopsies were taken with a cold forceps for histology. The examined duodenum was normal. Impression: - Normal esophagus. - Gastritis. Biopsied. - Normal examined duodenum. Recommendation: - Resume previous diet. - Use Protonix (pantoprazole) 40 mg PO daily. - Await pathology results. - Return to GI office as previously scheduled. Marcos Moreland DO 05/11/2017 11:29:24 AM This report has been signed electronically. Note Initiated On: 05/11/2017 11:13 AM I attest to the content of the Intraoperative Record and orders documented therein, exceptions below
--- NOTE | 2017-05-11 11:55 | Anesthesiology Progress Note ---
Anesthesia Post Op Note Date & Time May 11, 2017 at 11:54 Vital Signs Pain Intensity: 4 Vital Signs Past 12 Hours Date Time Temp Pulse Resp B/P (MAP) Pulse Ox O2 Delivery O2 Flow Rate FiO2 05/11/17 11:49 67 20 181/90 (120) 98 Room Air 05/11/17 11:34 66 20 131/77 (95) 98 Room Air 05/11/17 10:52 36.6 71 20 145/83 (103) 96 Room Air Notes Mental Status: alert / awake / arousable, participated in evaluation Pt Amnestic to Procedure: Yes Nausea / Vomiting: adequately controlled Pain: adequately controlled Airway Patency, RR, SpO2: stable & adequate BP & HR: stable & adequate Hydration State: stable & adequate Anesthetic Complications: no major complications apparent
[2017-05-11 12:18] VITALS: BP 156/74; PULSE 74; O2SAT 99
== END | disposition home or self-care (01) ==
LOC: C.GI 10:30
PROVIDERS: ATTEND Internal Medicine
DX: K29.50 Unspecified chronic gastritis without bleeding (principal)